=== PATIENT | male | born 1945 | race Caucasian/White ===

== ENCOUNTER → 2017-10-10 | Outpatient (CLI) | payer MEDICARE, BC ==
--- NOTE | 2017-10-10 20:08 | MR ---
EXAMINATION TYPE: MR knee RT wo con DATE OF EXAM: 10/10/2017 COMPARISON: NONE HISTORY: Pain TECHNIQUE: Multiplanar, multisequence imaging of the right knee is performed without IV contrast. FINDINGS: There is grade 3 abnormal signal the posterior horn of the medial meniscus compatible with meniscal tear. Lateral meniscus has a normal appearance. There is narrowing of the joint spaces with hypertrophic changes also seen particularly involving the upper margin of the patella compatible with osteoarthritis. Medial collateral and lateral collateral ligaments have a normal appearance. Anterior cruciate and posterior cruciate ligaments have a normal appearance. Patellar and quadriceps tendons are intact. Tiny amount of fluid in the suprapatellar bursa. There is thinning of the patellar cartilage compatible with chondromalacia. There is multifocal fibrillation involving the articular medial femoral cartilage. No diagnostic evidence of significant marrow edema or contusion. No sizable popliteal fossa cyst. IMPRESSION: 1. Osteoarthritis. 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 2. Posterior horn medial meniscal complex tear.
== END | disposition home or self-care (01) ==
LOC: RADMRIMAIN 19:25
PROVIDERS: ATTEND Orthopaedic Surgery
DX: M17.11 Unilateral primary osteoarthritis, right knee (principal); M22.41 Chondromalacia patellae, right knee; S83.242A Other tear of medial meniscus, current injury, left knee, initial encounter

== ENCOUNTER 2017-12-20 10:51 | Day surgery (SDC) | payer MEDICARE, BC ==
[2017-12-15 09:47] VITALS: BMI 33.4
[2017-12-20] MEDS ORDERED: LACTATED RINGERS 1,000 ML IV ONE ×3 (11:18→12:31)
[2017-12-20 11:19] VITALS: RESP 16; TEMP 98.3
[2017-12-20 12:01] LABS: INR 1.3 (<1.2); Partial Thromboplastin Time 22.5 sec (22.0-30.0)
[2017-12-20] MEDS ORDERED: LIDOCAINE 1% INJ 10MG/ML (20 ML MDV) ONE (12:33)
[2017-12-20] MEDS ORDERED: PROPOFOL 10 MG/ML 20 ML VIAL IV ONE (12:33)
[2017-12-20 13:12] LABS: Anisocytosis Slight; Basophils % (A) 0 %; Eosinophils % (A) 0 %; HCT 31.5 % (39.0-53.0); HGB 10.1 gm/dL (13.0-17.5); Lymphocytes # (A) 1.5 k/uL (1.0-4.8); Lymphocytes % (A) 24 %; MCH 30.5 pg (25.0-35.0); MCV 95.3 fL (80.0-100.0); Mean Platelet Volume 10.4; Monocytes # (A) 0.9 k/uL (0-1.0); Monocytes % (A) 14 %; Neutrophils # (A) 3.7 k/uL (1.3-7.7); Neutrophils % (A) 58 %; RBC 3.31 m/uL (4.30-5.90); RDW 17.7 % (11.5-15.5); WBC 6.5 k/uL (3.8-10.6)
[2017-12-20 13:20] VITALS: BP 126/63; PULSE 62
[2017-12-20 13:24] LABS: Poikilocytosis (M) Present
[2017-12-20 13:25] LABS: Platelet Count 53 k/uL (150-450)
--- NOTE | 2017-12-20 18:03 | OP ---
OPERATIVE REPORT PROCEDURE: Bone marrow aspirate and biopsy. INDICATION: Pancytopenia. After obtaining consent from the patient, the procedure was performed in the endoscopy suite under general anesthesia performed by the anesthesia team. The patient was put on left-sided decubital position. The right posterior superior iliac crest was localized. Skin was cleaned with ChloraPrep. All sterile procedures were followed. Two milliliters of 1% lidocaine was used for local anesthetic. Monoject was inserted; about 15 mL aspirate and a 2 cm core biopsy were obtained without any difficulties. Pressure was applied afterwards. There was negligible blood loss. Patient tolerated the procedure very well without any immediate complications. MMODL / IJN: [id number] /
== END 2017-12-20 13:34 | disposition home or self-care (01) ==
LOC: OR 10:51
PROVIDERS: ATTEND Internal Medicine Hematology & Oncology
DX: I25.10 Atherosclerotic heart disease of native coronary artery without angina pectoris (principal); I10 Essential (primary) hypertension; N40.0 Benign prostatic hyperplasia without lower urinary tract symptoms; I48.91 Unspecified atrial fibrillation; Z95.5 Presence of coronary angioplasty implant and graft; Z87.891 Personal history of nicotine dependence; Z80.51 Family history of malignant neoplasm of kidney; Z80.8 Family history of malignant neoplasm of other organs or systems; Z88.0 Allergy status to penicillin; Z88.2 Allergy status to sulfonamides; Z79.01 Long term (current) use of anticoagulants; Z79.82 Long term (current) use of aspirin; Z79.899 Other long term (current) drug therapy; E78.5 Hyperlipidemia, unspecified; J45.909 Unspecified asthma, uncomplicated
CPT/HCPCS: 85025; 85610; 85730; 38222; J2001; J2704

== ENCOUNTER → 2018-05-31 | Outpatient (CLI) | payer MEDICARE, BC ==
--- NOTE | 2018-05-31 18:45 | CT ---
EXAMINATION TYPE: CT abdomen pelvis wo con DATE OF EXAM: 05/31/2018 COMPARISON: 02/18/2015 HISTORY: RLQ pain CT DLP: 972 mGycm Automated exposure control for dose reduction was used. TECHNIQUE: Helical acquisition of images was performed from the lung bases through the pelvis. FINDINGS: . There is subsegmental atelectasis at the lung bases and more on the right side. Heart size is normal. There is no pericardial effusion. There is no pleural effusion. Liver shows no focal defect. Gallbladder appears normal. Bile ducts are not dilated. Spleen appears n ormal. Stomach appears normal. There is no pancreatic mass. There is no adrenal mass. Kidneys have normal size. There is no hydronep hrosis. There is 4 cm cortical cyst upper pole right kidney. There is no retroperitoneal adenopathy. There are diverticula in the sigmoid colon. There is enlarged prostate with calcification. Urinary bl adder is unremarkable. There is no free fluid in the pelvis. There is no inguinal hernia. There is no mesenteric edema. There is no sign of free air. The lumbar s pine is intact. There is degenerative disc space narrowing in the lumbar spine. I see no bony destruc tive process.There is no evidence of thickened appendix. Appendix is not definitely seen. IMPRESSION: THERE IS MILD SIGMOID DIVERTICULOSIS WITHOUT DIVERTICULITIS. NO SIGN OF APPENDICITIS. NO FREE AIR. SP ONDYLOTIC CHANGES. ENLARGED PROSTATE. There is new atelectasis at the lung bases compared to old exam.
== END | disposition home or self-care (01) ==
LOC: RADCTMAIN 17:09
PROVIDERS: ATTEND Nurse Practitioner Family
DX: K57.30 Diverticulosis of large intestine without perforation or abscess without bleeding (principal); N40.0 Benign prostatic hyperplasia without lower urinary tract symptoms; R10.9 Unspecified abdominal pain
CPT/HCPCS: 74176; 82565; 84520

== ENCOUNTER → 2018-09-05 | Outpatient (CLI) | payer MEDICARE, BC ==
--- NOTE | 2018-09-05 13:19 | CT ---
EXAMINATION TYPE: CT abdomen pelvis w con DATE OF EXAM: 09/05/2018 COMPARISON: CT abdomen pelvis May 31, 2018 HISTORY: Abdominal pain with anemia CT DLP: 2192.0 mGycm, Automated Exposure Control for Dose Reduction was Utilized. CONTRAST: CT scan of the abdomen and pelvis is performed with oral and with IV Contrast, patient injected with 80 mL of Isovue 300. FINDINGS: LUNG BASES: No significant abnormality is appreciated. LIVER/GB: No significant abnormality is appreciated. PANCREAS: No significant abnormality is seen. SPLEEN: Spleen noted normal in size. ADRENALS: No significant abnormality is seen. KIDNEYS: A few simple appearing cysts in the right kidney are present, measuring up to 3.4 cm long ax is medially upper pole right kidney axial image 5 series 11. Symmetric cortical medullary uptake and excretion without hydronephrosis bilaterally. Poorly distended bladder with mild to moderate wall thi ckening, finding presumed related to outlet obstruction from enlarged prostate gland. BOWEL: Prominent diverticula in the left and sigmoid colon without CT evidence for acute diverticulit is. No suspicious small or large bowel dilatation. PROSTATE/SEMINAL VESICLES: Heterogeneous enlarged prostate gland consistent with BPH. Adjacent pelvic phleboliths more numerous on the right side.. LYMPH NODES: No greater than 1cm abdominal or pelvic lymph nodes are appreciated. OSSEOUS STRUCTURES: Moderate to severe disc space narrowing with moderate spurring L4-L5 level. Moder ate multilevel spurring in the thoracolumbar spine. Moderate to severe spurring and joint space loss in both hips. OTHER: No significant additional abnormality is seen. IMPRESSION: Persistent prominent distal colonic diverticulosis without CT evidence for acute divertic ulitis. No hepatosplenomegaly. No suspicious mass or adenopathy. No suspicious fluid collection.
== END | disposition home or self-care (01) ==
LOC: RADCTMAIN 09:34
PROVIDERS: ATTEND Internal Medicine
DX: K57.30 Diverticulosis of large intestine without perforation or abscess without bleeding (principal); R10.9 Unspecified abdominal pain
CPT/HCPCS: 82565; 84520; 74177; 36415; Q9967 ×2

== ENCOUNTER 2018-09-26 05:50 | Day surgery (SDC) | payer MEDICARE, BC ==
[2018-09-21 10:40] VITALS: BMI 32.2
[~2018-09-26 05:50] MED LIST: LACTATED RINGERS 1,000 ML IV SCH; LIDOCAINE 1% 20 ML VIAL (10MG/ML) FOR IV START INTRADERMA PRN
[2018-09-26 06:19] VITALS: TEMP 97.6
[2018-09-26] MEDS ORDERED: PROPOFOL 10 MG/ML 20 ML VIAL IV ONE (07:07)
[2018-09-26] MEDS ORDERED: LIDOCAINE 2% (PF) 20 MG/ML 2 ML VIAL SQ ONE (07:13)
[2018-09-26 07:36] VITALS: RESP 18
[2018-09-26 07:50] VITALS: BP 110/70; PULSE 78
[2018-09-26 08:10] LABS: Anisocytosis Moderate; HCT 25.5 % (39.0-53.0); HGB 8.4 gm/dL (13.0-17.5); Hypochromasia Slight; MCH 30.6 pg (25.0-35.0); MCV 92.9 fL (80.0-100.0); Macrocytosis Slight; Mean Platelet Volume 12.3; RBC 2.75 m/uL (4.30-5.90); RDW 20.6 % (11.5-15.5); WBC 9.6 k/uL (3.8-10.6)
--- NOTE | 2018-09-26 08:13 | OP ---
OPERATIVE REPORT DATE OF SERVICE: September 26, 2018 PROCEDURE: Bone marrow aspirate and biopsy. INDICATION: Myelodysplastic syndrome. PROCEDURE: After obtaining consent from the patient, the procedure was performed in the endoscopy suite under general anesthesia performed by anesthesia team. The patient was put in the left lateral decubitus position. The right posterior iliac crest was localized. Skin was prepped with ChloraPrep. All sterile procedures were followed. A Snarecoil needle was inserted, about 15 mL of aspirate and 1 cm core biopsy was obtained without any difficulties. Pressure applied afterwards. There was negligible blood loss. Patient tolerated procedure very well without any immediate complications. MMODL / IJN: [id number] /
[2018-09-26 09:34] LABS: Lymphocytes # (M) 1.54 k/uL (1.0-4.8); Monocytes # (M) 1.44 k/uL (0-1.0); Neutrophils # (M) 6.62 k/uL (1.3-7.7); Neutrophils % (M) 69 %; Nucleated Red Blood Cells 0 /100 WBC (0-0); Total Cells Counted 100
[2018-09-26 09:35] LABS: Large Platelets Present; Poikilocytosis (M) Present; Polychromasia Present
[2018-09-26 09:36] LABS: Platelet Count 26 k/uL (150-450)
== END 2018-09-26 08:14 | disposition home or self-care (01) ==
LOC: OR 05:50
PROVIDERS: ATTEND Internal Medicine Hematology & Oncology
DX: I25.10 Atherosclerotic heart disease of native coronary artery without angina pectoris (principal); I10 Essential (primary) hypertension; N40.0 Benign prostatic hyperplasia without lower urinary tract symptoms; I48.91 Unspecified atrial fibrillation; E78.5 Hyperlipidemia, unspecified; J45.909 Unspecified asthma, uncomplicated; Z80.51 Family history of malignant neoplasm of kidney; Z80.8 Family history of malignant neoplasm of other organs or systems; Z87.891 Personal history of nicotine dependence; Z95.5 Presence of coronary angioplasty implant and graft; Z79.899 Other long term (current) drug therapy; Z88.0 Allergy status to penicillin; Z88.2 Allergy status to sulfonamides
CPT/HCPCS: 85025; 38222; J2704; J2001

== ENCOUNTER 2018-11-28 10:46 | Day surgery (SDC) | payer MEDICARE, BC ==
[2018-11-27 08:58] VITALS: BMI 31.9
[2018-11-28 11:02] VITALS: TEMP 97.6
[2018-11-28 11:27] LABS: Anisocytosis Slight; Basophils # (A) 0.2 k/uL (0-0.2); Basophils % (A) 2 %; Eosinophils # (A) 0.1 k/uL (0-0.7); Eosinophils % (A) 1 %; HCT 25.8 % (39.0-53.0); HGB 8.3 gm/dL (13.0-17.5); Hypochromasia Slight; Lymphocytes # (A) 1.4 k/uL (1.0-4.8); Lymphocytes % (A) 12 %; MCH 30.8 pg (25.0-35.0); MCHC 32.2 g/dL (31.0-37.0); MCV 95.6 fL (80.0-100.0); Macrocytosis Slight; Mean Platelet Volume 8.1; Monocytes # (A) 1.8 k/uL (0-1.0); Monocytes % (A) 16 %; Neutrophils # (A) 7.8 k/uL (1.3-7.7); Neutrophils % (A) 67 %; RDW 19.8 % (11.5-15.5); WBC 11.7 k/uL (3.8-10.6)
[2018-11-28 11:44] LABS: Platelet Count 13 k/uL (150-450)
[2018-11-28 12:17] LABS: Ovalocytes Present; Poikilocytosis (M) Present; Tear Drop Cells Present
[2018-11-28] MEDS ORDERED: PROPOFOL 10 MG/ML 20 ML VIAL IV ONE (12:32)
[2018-11-28] MEDS ORDERED: LIDOCAINE 1% INJ 10MG/ML (20 ML MDV) ONE (12:32)
[2018-11-28 12:55] LABS: Reticulocyte % 2.5 % (0.5-2.0)
--- NOTE | 2018-11-28 13:05 | PCN ---
PROCEDURE NOTE DATE OF SERVICE: November 28, 2018 PROCEDURE: Bone marrow aspirate and biopsy. INDICATION: Known myelodysplastic syndrome, rule out progression to AML. DESCRIPTION OF PROCEDURE: After obtaining consent from the patient, the procedure was performed in the endoscopy suite under general anesthesia. The patient was put in the left lateral decubitus position. The right posterior superior iliac crest was localized. Skin was cleansed with ChloraPrep, all sterile procedures were followed and 2 mL of 1% Xylocaine was used for local anesthetic. The needle was inserted, about 10 mL aspirate and 1.5 cm core biopsy was obtained without any difficulties. Pressure applied afterwards. There was negligible blood loss. Patient tolerated procedure very well without any immediate complications. MMODL / IJN: [id number] /
[2018-11-28 13:09] VITALS: RESP 18
[2018-11-28 13:26] VITALS: BP 151/85; PULSE 60
== END 2018-11-28 13:44 | disposition home or self-care (01) ==
LOC: OR 10:46
PROVIDERS: ATTEND Internal Medicine Hematology & Oncology
DX: D46.9 Myelodysplastic syndrome, unspecified (principal); Z79.899 Other long term (current) drug therapy; Z88.0 Allergy status to penicillin; Z88.2 Allergy status to sulfonamides; I25.10 Atherosclerotic heart disease of native coronary artery without angina pectoris; I10 Essential (primary) hypertension; I48.91 Unspecified atrial fibrillation; Z95.5 Presence of coronary angioplasty implant and graft; Z87.891 Personal history of nicotine dependence; Z80.51 Family history of malignant neoplasm of kidney
CPT/HCPCS: 85025; 85045; 38222; J2001; J2704

== ENCOUNTER 2019-01-22 13:50 | Inpatient (IN) | payer MEDICARE, BC ==
[2019-01-22] MEDS ORDERED: SODIUM CHLORIDE 0.9% 500 ML 500 ML IV STA (14:42)
[2019-01-22] MEDS ORDERED: PANTOPRAZOLE 40 MG/10 ML VIAL IVP STA (14:42)
--- NOTE | 2019-01-22 14:47 | ED ---
General Adult HPI - General Chief complaint: Shortness of Breath Stated complaint: SOB-CA Pt Time Seen by Provider: 01/22/19 13:55 Source: patient, family, RN notes reviewed Mode of arrival: ambulatory Limitations: no limitations - History of Present Illness Initial comments: This a 73-year-old male who presents emergency Department with a past medical history significant for atrial fibrillation and myelodysplastic syndrome. Patient also has a history of anemia. Patient states over the last few weeks she's become more and more fatigued and short of breath. Patient denies any fever chills. Patient denies any chest pain. Patient denies any abdominal pain patient denies nausea vomiting diarrhea. Patient any black or bloody stools. Patient denies lightheadedness or dizziness. Patient denies any headache. Denies any numbness or weakness that is focal. - Related Data Home Medications Medication Instructions Recorded Confirmed Atorvastatin [Lipitor] 80 mg PO HS 03/28/14 01/22/19 Enalapril [Vasotec] 20 mg PO DAILY 03/28/14 01/22/19 Metoprolol Tartrate [Lopressor] 12.5 mg PO BID 03/28/14 01/22/19 Terazosin [Hytrin] 5 mg PO DAILY 03/28/14 01/22/19 Montelukast [Singulair] 10 mg PO DAILY 12/15/17 01/22/19 Fexofenadine HCl [Lizzy Allergy] 180 mg PO DAILY 09/21/18 01/22/19 Multivitamins, Thera [Multivitamin 1 tab PO DAILY 01/22/19 01/22/19 (formulary)] Allergies Allergy/AdvReac Type Severity Reaction Status Date / Time Penicillins Allergy Rash/Hives Verified 01/22/19 14:41 Sulfa (Sulfonamide Allergy Rash/Hives Verified 01/22/19 14:41 Antibiotics) Review of Systems ROS Statement: Those systems with pertinent positive or pertinent negative responses have been documented in the HPI. ROS Other: All systems not noted in ROS Statement are negative. Past Medical History Past Medical History: Asthma, Hyperlipidemia, Hypertension, Prostate Disorder Additional Past Medical History / Comment(s): CHRONIC LOW PLATELETS-MDS History of Any Multi-Drug Resistant Organisms: None Reported Past Surgical History: Appendectomy, Heart Catheterization With Stent Additional Past Surgical History / Comment(s): pilonidal cyst surg. COLONOSC OPY. BONE MARROW BX-LAST ONE 09/26/18 Past Anesthesia/Blood Transfusion Reactions: No Reported Reaction Date of Last Stent Placement:: September 2012 Past Psychological History: No Psychological Hx Reported Smoking Status: Former smoker Past Alcohol Use History: None Reported Past Drug Use History: None Reported - Past Family History Mother Family Medical History: No Reported History General Exam - General Exam Comments Initial Comments: GENERAL: Patient is well-developed and well-nourished. Patient is nontoxic and well-hydr ated and is in mild distress. ENT: Neck is soft and supple. No significant lymphadenopathy is noted. Oropharynx is clear. Moist mucous membranes. Neck has full range of motion without eliciting any pain. EYES: The sclera were anicteric and conjunctiva were pink and moist. Extraocular movements were intact and pupils were equal round and reactive to light. Eyelids were unremarkable. PULMONARY: Unlabored respirations. Good breath sounds bilaterally. No audible rales rhonchi or wheezing was noted. CARDIOVASCULAR: There is a regular rate and rhythm without any murmurs gallops or rubs. ABDOMEN: Soft and nontender with normal bowel sounds. SKIN: Patient's skin is pale NEUROLOGIC: Patient is alert and oriented x3. Cranial nerves II through XII are grossly intact. Motor and sensory are also intact. Normal speech, volume and content. Symmetrical smile. MUSCULOSKELETAL: Normal extremities with adequate strength and full range of motion. No lower extremity swelling or edema. No calf tenderness. LYMPHATICS: No significant lymphadenopathy is noted PSYCHIATRIC: Normal psychiatric evaluation. Patient is tachycardic at 150 beats a minute Limitations: no limitations Course Vital Signs 01/22/19 01/22/19 13:54 14:39 Temperature 98.1 F Pulse Rate 150 H Pulse Rate [ 150 H Tim[place]er ] Respiratory 16 Rate Blood Pressure 97/65 O2 Sat by Pulse 94 L Oximetry Medical Decision Making - Medical Decision Making EKG shows atrial flutter with a 2-1 block at 150 bpm QRS is 82 QT intervals 294 QTC is 464. Patient's EKG shows no ST segment elevation or depression or T wave abnormalities are noted Chest x-ray shows pleural effusion. Patient is in atrial flutter/started the patient a Cardizem drip. I spoke with Dr. West a agreed to admit the patient to the patient wrote admitting orders and I continued the Cardizem drip on the floor I consult cardiology as well as Dr. Gupta - Lab Data Result diagrams: 01/22/19 14:50 01/22/19 14:50 Lab Results 01/22/19 01/22/19 01/22/19 Range/Units 14:50 14:50 14:50 WBC 6.3 (3.8-10.6) k/uL RBC 2.37 L (4.30-5.90) m/uL Hgb 7.0 L (13.0-17.5) gm/dL Hct 22.6 L (39.0-53.0) % MCV 95.0 (80.0-100.0) fL MCH 29.6 (25.0-35.0) pg MCHC 31.1 (31.0-37.0) g/dL RDW 18.3 H (11.5-15.5) % Plt Count 11 L* (150-450) k/uL Neutrophils % 63 % Lymphocytes % 13 % Monocytes % 16 % Eosinophils % 0 % Basophils % 4 % Neutrophils # 4.0 (1.3-7.7) k/uL Lymphocytes # 0.8 L (1.0-4.8) k/uL Monocytes # 1.0 (0-1.0) k/uL Eosinophils # 0.0 (0-0.7) k/uL Basophils # 0.3 H (0-0.2) k/uL Manual Slide Review Performed Polychromasia Present Hypochromasia Marked Poikilocytosis Slight Poikilocytosis (manual Present Anisocytosis Slight Macrocytosis Slight Ovalocytes Present PT 11.3 (9.0-12.0) sec INR 1.1 (<1.2) APTT 24.6 (22.0-30.0) sec Sodium 143 (137-145) mmol/L Potassium 4.3 (3.5-5.1) mmol/L Chloride 111 H (98-107) mmol/L Carbon Dioxide 24 (22-30) mmol/L Anion Gap 8 mmol/L BUN 24 H (9-20) mg/dL Creatinine 1.36 H (0.66-1.25) mg/dL Est GFR (CKD-EPI)AfAm 58 (>60 ml/min/1.73 sqM) Est GFR (CKD-EPI)NonAf 51 (>60 ml/min/1.73 sqM) Glucose 87 (74-99) mg/dL Calcium 8.9 (8.4-10.2) mg/dL Magnesium 1.9 (1.6-2.3) mg/dL Total Bilirubin 0.9 (0.2-1.3) mg/dL AST 21 (17-59) U/L ALT 20 L (21-72) U/L Alkaline Phosphatase 59 (38-126) U/L Troponin I (0.000-0.034) ng/mL Total Protein 6.9 (6.3-8.2) g/dL Albumin 3.3 L (3.5-5.0) g/dL Blood Type Blood Type Confirm Blood Type Recheck Bld Type Recheck Status Antibody Screen Spec Expiration Date 01/22/19 01/22/19 01/22/19 Range/Units 14:50 14:50 14:52 WBC (3.8-10.6) k/uL RBC (4.30-5.90) m/uL Hgb (13.0-17.5) gm/dL Hct (39.0-53.0) % MCV (80.0-100.0) fL MCH (25.0-35.0) pg MCHC (31.0-37.0) g/dL RDW (11.5-15.5) % Plt Count (150-450) k/uL Neutrophils % % Lymphocytes % % Monocytes % % Eosinophils % % Basophils % % Neutrophils # (1.3-7.7) k/uL Lymphocytes # (1.0-4.8) k/uL Monocytes # (0-1.0) k/uL Eosinophils # (0-0.7) k/uL Basophils # (0-0.2) k/uL Manual Slide Review Polychromasia Hypochromasia Poikilocytosis Poikilocytosis (manual Anisocytosis Macrocytosis Ovalocytes PT (9.0-12.0) sec INR (<1.2) APTT (22.0-30.0) sec Sodium (137-145) mmol/L Potassium (3.5-5.1) mmol/L Chloride (98-107) mmol/L Carbon Dioxide (22-30) mmol/L Anion Gap mmol/L BUN (9-20) mg/dL Creatinine (0.66-1.25) mg/dL Est GFR (CKD-EPI)AfAm (>60 ml/min/1.73 sqM) Est GFR (CKD-EPI)NonAf (>60 ml/min/1.73 sqM) Glucose (74-99) mg/dL Calcium (8.4-10.2) mg/dL Magnesium (1.6-2.3) mg/dL Total Bilirubin (0.2-1.3) mg/dL AST (17-59) U/L ALT (21-72) U/L Alkaline Phosphatase (38-126) U/L Troponin I 0.034 (0.000-0.034) ng/mL Total Protein (6.3-8.2) g/dL Albumin (3.5-5.0) g/dL Blood Type A Positive Blood Type Confirm A Positive Blood Type Recheck No Previous Record Bld Type Recheck Status CABO Indicated Antibody Screen NEGATIVE Spec Expiration Date 01/25/2019 - 2359 Critical Care Time Critical Care Time: Yes Total Critical Care Time: 35 Disposition Clinical Impression: Pleural effusion, Thrombocytopenia, Anemia, Atrial flutter with rapid ventricular response Disposition: ADMITTED IP TO THIS HOSP Referrals: Watson Fuentes MD [Primary Care Provider] - 1-2 days Time of Disposition: 16:01
[2019-01-22 15:04] LABS: Anisocytosis Slight; Basophils # (A) 0.3 k/uL (0-0.2); Basophils % (A) 4 %; Eosinophils % (A) 0 %; HCT 22.6 % (39.0-53.0); Hypochromasia Marked; Lymphocytes # (A) 0.8 k/uL (1.0-4.8); Lymphocytes % (A) 13 %; MCH 29.6 pg (25.0-35.0); MCHC 31.1 g/dL (31.0-37.0); Macrocytosis Slight; Mean Platelet Volume 7.3; Monocytes % (A) 16 %; Neutrophils % (A) 63 %; Poikilocytosis Slight; RBC 2.37 m/uL (4.30-5.90); RDW 18.3 % (11.5-15.5); WBC 6.3 k/uL (3.8-10.6)
[2019-01-22 15:13] LABS: INR 1.1 (<1.2); Partial Thromboplastin Time 24.6 sec (22.0-30.0); Prothrombin Time 11.3 sec (9.0-12.0)
[2019-01-22 15:14] LABS: Albumin 3.3 g/dL (3.5-5.0); Calcium 8.9 mg/dL (8.4-10.2); Magnesium 1.9 mg/dL (1.6-2.3); Potassium 4.3 mmol/L (3.5-5.1); Total Bilirubin 0.9 mg/dL (0.2-1.3); Total Protein 6.9 g/dL (6.3-8.2)
--- NOTE | 2019-01-22 15:14 | XR ---
EXAMINATION TYPE: XR chest 2V DATE OF EXAM: 01/22/2019 COMPARISON: 09/22/2012 INDICATION: Pain and shortness of breath TECHNIQUE: Frontal and lateral views of the chest are obtained. FINDINGS: The heart size is normal. The pulmonary vasculature is normal. Posterior pleural effusions present.. IMPRESSION: 1. Posterior pleural effusions
[2019-01-22 15:39] LABS: Ovalocytes Present; Poikilocytosis (M) Present; Polychromasia Present
[2019-01-22 15:41] LABS: Platelet Count 11 k/uL (150-450)
[2019-01-22] MEDS ORDERED: DILTIAZEM 125 MG in SODIUM CHLORIDE 0.9% 100 ML IV SCH ×2 (16:00→17:39)
[2019-01-22] MEDS ORDERED: NALOXONE 0.4 MG/ML 1 ML VIAL IV PRN (17:26)
[2019-01-22] MEDS ORDERED: ACETAMINOPHEN TAB 325 MG TAB PO PRN (17:26)
[2019-01-22] MEDS ORDERED: HYDROcodone/APAP 5-325MG 1 EACH TAB PO PRN (17:26)
[2019-01-22] MEDS ORDERED: METOPROLOL TARTRATE 25 MG TAB PO STA (17:38)
--- NOTE | 2019-01-22 17:51 | P.HPIM ---
History of Present Illness H&P Date: 01/22/19 Chief Complaint: Fatigue, shortness of breath and dizziness 73-year-old male with MDS, atrial fibrillation, hypertension, asthma, CAD with 2 stents presents the ED for fatigue, shortness of breath and lightheadedness. Patient reports fatigue and shortness of breath has been ongoing for the past month. Patient states that his breathing is worse with exertion. Patient sta alma that one month prior, he was able to walk 20 minutes on a treadmill prior to feeling short of breath but now can only walk 12 minutes. This morning, patient experienced lightheadedness with positional change that prompted him to come to the ED. Patient denies any lower extremity edema, orthopnea or PND. He denies any headache, nausea or vomiting, fever or chills, chest pain, palpitations, c hanges in urination or bowel habits. He does report a cough that is worse at night productive of clear mucus, sometimes blood-tinged, only in the morning. Patient also reports a decreased appetite and weight loss. Patient states that he is gone from 235 pounds to 207 pounds over the last 2-3 years due to his poor appetite. Patient states that he sees Dr. Pace for his atrial fibrillation and CAD. His last echocardiogram was 2 years ago. Patient reports smoking 2-1/2 packs of cigarettes daily for 30 years, quit 35 years ago. Patient reports seeing Dr. Gupta for MDS, has never been transfused. Patient states that he has been on anticoagulation in the past for atrial fibrillation but was taken off due to concerns for bleeding by Dr. Gupta. In the ED, patient was found to be in atrial flutter as seen on EKG, heart rate as high as 151. Chest x-ray showed posterior pleural effusions. CBC showed hemoglobin of 7 and platelet count of 11. Coagulation panel was negative. CMP showed BUN 24, creatinine 1.36. Troponin was 0.034. BNP was 3570. Patient is admitted for atrial flutter, rule out acute coronary syndrome with cardiology and hematology consult. Review of Systems Pertinent positives and negatives as discussed in HPI, a complete review of systems was performed and all other systems are negative. Past Medical History Past Medical History: Asthma, Hyperlipidemia, Hypertension, Prostate Disorder Additional Past Medical History / Comment(s): CHRONIC LOW PLATELETS-MDS History of Any Multi-Drug Resistant Organisms: None Reported Past Surgical History: Appendectomy, Heart Catheterization With Stent Additional Past Surgical History / Comment(s): pilonidal cyst surg. [place] LONOSCOPY. BONE MARROW BX-LAST ONE 09/26/18 Past Anesthesia/Blood Transfusion Reactions: No Reported Reaction Date of Last Stent Placement:: September 2012 Past Psychological History: No Psychological Hx Reported Smoking Status: Former smoker Past Alcohol Use History: None Reported Past Drug Use History: None Reported - Past Family History Mother Family Medical History: No Reported History Medications and Allergies Home Medications Medication Instructions Recorded Confirmed Type Atorvastatin [Lipitor] 80 mg PO HS 03/28/14 01/22/19 History Enalapril [Vasotec] 20 mg PO DAILY 03/28/14 01/22/19 History Metoprolol Tartrate [Lopressor] 12.5 mg PO BID 03/28/14 01/22/19 History Terazosin [Hytrin] 5 mg PO DAILY 03/28/14 01/22/19 History Montelukast [Singulair] 10 mg PO DAILY 12/15/17 01/22/19 History Fexofenadine HCl [Lizzy Allergy] 180 mg PO DAILY 09/21/18 01/22/19 History Multivitamins, Thera [Multivitamin 1 tab PO DAILY 01/22/19 01/22/19 History (formulary)] Allergies Allergy/AdvReac Type Severity Reaction Status Date / Time Penicillins Allergy Rash/Hives Verified 01/22/19 14:41 Sulfa (Sulfonamide Allergy Rash/Hives Verified 01/22/19 14:41 Antibiotics) Physical Exam Vitals: Vital Signs Temp Pulse Pulse Resp BP Pulse Ox 01/22/19 16:30 147 H 18 100/69 98 01/22/19 16:00 147 H 28 H 101/75 98 01/22/19 15:30 13 84/64 98 01/22/19 15:00 149 H 29 H 95/60 98 01/22/19 14:39 150 H 01/22/19 14:30 151 H 16 99/72 96 01/22/19 14:13 149 H 22 93 L 01/22/19 13:54 98.1 F 150 H 16 97/65 94 L Intake and Output 01/22/19 01/22/19 01/22/19 06:59 14:59 22:59 Other: Weight 93.894 kg General: [non toxic], [no distress], [appears at stated age] Derm: [warm], [dry] Head: [atraumatic], [normocephalic], [symmetric] Eyes: [EOMI], [no lid lag], [anicteric sclera] Mouth: [no lip lesion], [mucus membranes moist] Cardiovascular: [S1S2 reg], [irregularly irregular], [positive DP pulse bilateral], Lungs: [CTA bilateral], [no rhonchi, no rales] , [no accessory muscle use] Abdominal: [soft], [ nontender to palpation], [no guarding], [no appreciable organomegaly] Ext: [no gross muscle atrophy], [no edema], [no contractures] Neuro: [ CN II-XI grossly intact], [no focal neuro deficits] Psych: [Alert], [oriented], [appropriate affect] Results CBC & Chem 7: 01/22/19 14:50 01/22/19 14:50 Labs: Abnormal Lab Results - Last 24 Hours (Table) 01/22/19 01/22/19 01/22/19 Range/Units 14:50 14:50 14:50 RBC 2.37 L (4.30-5.90) m/uL Hgb 7.0 L (13.0-17.5) gm/dL Hct 22.6 L (39.0-53.0) % RDW 18.3 H (11.5-15.5) % Plt Count 11 L* (150-450) k/uL Lymphocytes # 0.8 L (1.0-4.8) k/uL Basophils # 0.3 H (0-0.2) k/uL Chloride 111 H (98-107) mmol/L BUN 24 H (9-20) mg/dL Creatinine 1.36 H (0.66-1.25) mg/dL ALT 20 L (21-72) U/L Albumin 3.3 L (3.5-5.0) g/dL Crossmatch See Detail Assessment and Plan Assessment: Atrial flutter with 2-1 AV conduction Symptomatic anemia Thrombocytopenia Acute kidney injury Chronic conditions: Asthma, hypertension, dyslipidemia As seen on EKG. No anticoagulation as per Dr. Hawk and Dr. Hart. Plans: Continue Cardizem drip. Restart metoprolol. Telemetry monitoring. Keep potassium greater than 4 and magnesium greater than 2. Follow echocardiogram. Follow-up cardiology consultation. Follow TSH. Trend troponin/EKG to rule out ACS. Hemoglobin 7.0. Likely due to MDS. Likely contributing to atrial flutter. Plans: Transfuse 1 unit PRBC. Repeat CBC in the morning. Follow-up hematology consultation. Platelet count 11. No signs of bleeding. Hold aspirin and heparin. Plans: Repeat CBC in the morning. Follow hematology consultation. Transfuse if platelet count less than 10. Creatinine 1.36. Plans: Start normal saline at 80 mL per hour. Hold HANNAH inhibitor. Avoid nephrotoxins. Repeat BMP in the morning. DVT prophylaxis: [SCD boots] Discussed with: [Patient] Anticipated discharge: [1-2 days] Anticipated discharge place: [Home] A total of [45] minutes was spent on the care of this complex patient more than 50% of the time was spent in counseling and care coordination. Patient names his Aleah decision-maker in the case that he can't make decisions for himself. Patient reiterates wanting to remain full code at this time. His PCP is Dr. Fuentes. Patient is admitted for anticipated greater than 48 hours.
[2019-01-22] MEDS: SODIUM CHLORIDE 0.9% 1,000 ML IV SCH (19:36)
[2019-01-22] MEDS ORDERED: METOPROLOL TARTRATE 12.5 MG TAB PO SCH (21:00)
[2019-01-22] MEDS: ATORVASTATIN 80 MG TAB PO SCH (21:29)
[2019-01-23 01:19] LABS: Anisocytosis Slight; HCT 22.2 % (39.0-53.0); Hypochromasia Marked; MCH 30.3 pg (25.0-35.0); MCHC 31.4 g/dL (31.0-37.0); MCV 96.7 fL (80.0-100.0); Macrocytosis Slight; Mean Platelet Volume 15.6; Poikilocytosis Slight; RDW 17.5 % (11.5-15.5)
[2019-01-23 01:32] LABS: Platelet Count 14 k/uL (150-450)
[2019-01-23 02:16] LABS: Band Neutrophils % 5 %; Lymphocytes # (M) 1.09 k/uL (1.0-4.8); Metamyelocytes # (M) 0.05 k/uL (0); Metamyelocytes % 1 %; Monocytes # (M) 0.83 k/uL (0-1.0); Neutrophils % (M) 57 %; Nucleated Red Blood Cells 1 /100 WBC (0-0); Ovalocytes Present; Total Cells Counted 200; WBC 5.2 k/uL (3.8-10.6)
[2019-01-23 02:17] LABS: Polychromasia Present; RBC Fragments Present
[2019-01-23 06:16] LABS: African American GFR (CKD) 62 (>60 ml/min/1.73 sqM); Anion Gap 7 mmol/L; Blood Urea Nitrogen 25 mg/dL (9-20); Calcium 8.6 mg/dL (8.4-10.2); Carbon Dioxide 21 mmol/L (22-30); Chloride 115 mmol/L (98-107); Cholesterol <50 mg/dL (<200); Glucose 97 mg/dL (74-99); HDL Cholesterol 10 mg/dL (40-60); LDL Cholesterol,Calculated 21 mg/dL (0-99); Magnesium 1.8 mg/dL (1.6-2.3); Sodium 143 mmol/L (137-145); Triglycerides 96 mg/dL (<150)
[2019-01-23 06:22] LABS: Potassium 4.7 mmol/L (3.5-5.1)
[2019-01-23 08:18] LABS: Anisocytosis Slight; HCT 23.4 % (39.0-53.0); HGB 7.6 gm/dL (13.0-17.5); Hypochromasia Moderate; MCH 30.4 pg (25.0-35.0); MCHC 32.5 g/dL (31.0-37.0); MCV 93.6 fL (80.0-100.0); Mean Platelet Volume 6.9; Poikilocytosis Slight; RDW 17.7 % (11.5-15.5); WBC 7.3 k/uL (3.8-10.6)
[2019-01-23 08:20] LABS: Platelet Count 15 k/uL (150-450)
[2019-01-23 08:30] LABS: Band Neutrophils % 1 %; Lymphocytes # (M) 1.83 k/uL (1.0-4.8); Metamyelocytes # (M) 0.07 k/uL (0); Metamyelocytes % 1 %; Monocytes # (M) 1.39 k/uL (0-1.0); Myelocytes # (M) 0.07 k/uL (0); Myelocytes % 1 %; Neutrophils % (M) 54 %; Nucleated Red Blood Cells 0 /100 WBC (0-0); Ovalocytes Present; Total Cells Counted 200
[2019-01-23] MEDS: SODIUM CHLORIDE 0.9% 1,000 ML IV SCH (08:30)
[2019-01-23 08:31] LABS: RBC Fragments Present
[2019-01-23] MEDS: METOPROLOL TARTRATE 25 MG TAB PO SCH ×2 (08:35→20:13)
[2019-01-23] MEDS: MONTELUKAST 10 MG TAB PO SCH (08:35)
[2019-01-23] MEDS: DOXAZOSIN 4 MG TAB PO SCH (08:36)
[2019-01-23] MEDS ORDERED: DILTIAZEM 125 MG in SODIUM CHLORIDE 0.9% 100 ML IV SCH ×2 (09:00→16:00)
[2019-01-23] MEDS ORDERED: ASPIRIN 325 MG TAB PO SCH (09:00)
[2019-01-23] MEDS ORDERED: METOPROLOL TARTRATE 25 MG TAB PO SCH ×2 (09:00)
[2019-01-23] MEDS ORDERED: METOPROLOL TARTRATE 12.5 MG TAB PO SCH (09:00)
[2019-01-23] MEDS ORDERED: LISINOPRIL 20 MG TAB PO SCH (09:00)
[2019-01-23] MEDS ORDERED: FUROSEMIDE 10 MG/ML 4 ML VIAL IV STA (10:47)
[2019-01-23] MEDS ORDERED: AMIODARONE 200 MG TAB PO SCH (11:00)
--- NOTE | 2019-01-23 11:38 | ECHOF ---
Referral Reason:A Fib MEASUREMENTS -------- HEIGHT: 172.7 cm WEIGHT: 94.3 kg BP: RVIDd: 2.8 cm (< 3.3) IVSd: 1.0 cm (0.6 - 1.1) LVIDd: 4.3 cm (3.9 - 5.3) LVPWd: 1.3 cm (0.6 - 1.1) IVSs: 1.7 cm LVIDs: 2.7 cm LVPWs: 1.5 cm LAESV Index (A-L): 35.30 ml/m Ao Diam: 2.8 cm (2.0 - 3.7) AV Cusp: 1.1 cm (1.5 - 2.6) LA Diam: 3.6 cm (2.7 - 3.8) AV maxP.89 mmHg AV meanP.27 mmHg AR PHT: 131 ms RAP: 15.00 mmHg RVSP: 46.55 mmHg TAPSE: 23.97 mm FINDINGS -------- Atrial fibrillation. This was a technically good study. The left ventricular size is normal. There is mild concentric left ventricular hypertrophy. Overa ll left ventricular systolic function is normal with, an EF between 55 - 60 %. Left ventricular jack limg pressure cannot be estimated due to Atrial fibrillation. The right ventricle is normal in size. The right ventricular systolic function is normal. LA is moderately dilated 34-39 ml/m2 The right atrial size is normal. Interatrial and interventricular septum intact. Aortic valve is trileaflet and is moderately thickened. Trace amount of aortic regurgitation. Th ere is moderate aortic stenosis present. Peak/mean gradient across the Aortic Valve is 31.89mmHg / 17.27mmHg. The mitral valve is normal. The mitral valve leaflets are mildly thickened. Mild mitral annular c alcification present. Mild mitral regurgitation is present. The tricuspid valve appears structurally normal. Mild tricuspid regurgitation present. There is m ild pulmonary hypertension. The right ventricular systolic pressure, as measured by Doppler, is 46. 55mmHg. There is no pulmonic regurgitation present. The aortic root size is normal. The inferior vena cava is mildly dilated but collapses. The pulmonary veins were not recorded. There is no pericardial effusion. CONCLUSIONS -------- 1. Atrial fibrillation. 2. This was a technically good study. 3. The left ventricular size is normal. 4. There is mild concentric left ventricular hypertrophy. 5. Overall left ventricular systolic function is normal with, an EF between 55 - 60 %. 6. Left ventricular fillimg pressure cannot be estimated due to Atrial fibrillation. 7. The right ventricle is normal in size. 8. The right ventricular systolic function is normal. 9. LA is moderately dilated 34-39 ml/m2 10. The right atrial size is normal. 11. Interatrial and interventricular septum intact. 12. Aortic valve is trileaflet and is moderately thickened. 13. Trace amount of aortic regurgitation. 14. There is moderate aortic stenosis present. 15. Peak/mean gradient across the Aortic Valve is 31.89mmHg / 17.27mmHg. 16. The mitral valve is normal. 17. The mitral valve leaflets are mildly thickened. 18. Mild mitral annular calcification present. 19. Mild mitral regurgitation is present. 20. The tricuspid valve appears structurally normal. 21. Mild tricuspid regurgitation present. 22. There is mild pulmonary hypertension. 23. The right ventricular systolic pressure, as measured by Doppler, is 46.55mmHg. 24. There is no pulmonic regurgitation present. 25. The aortic root size is normal. 26. The inferior vena cava is mildly dilated but collapses. 27. The pulmonary veins were not recorded. 28. There is no pericardial effusion. WILDLIFE REMOVAL SPECIALIST: Kalina Holloway RDCS
--- NOTE | 2019-01-23 12:02 | P.PN ---
Subjective Progress Note Date: 01/23/19 Principal diagnosis: Atrial fibrillation Patient was seen and examined. No acute events overnight. Patient reports slight improvement in his fatigue and shortness of breath. Patient denies any chest pain or palpitations. No nausea or vomiting. No fever or chills. Objective - Vital Signs Vital signs: Vital Signs Temp 97.7 F 01/23/19 08:00 Pulse 146 H 01/23/19 08:00 Resp 18 01/23/19 08:00 BP 131/75 01/23/19 08:00 Pulse Ox 95 01/23/19 08:00 Intake & Output 01/22/19 01/23/19 01/23/19 18:59 06:59 18:59 Intake Total 20 850 250.25 Output Total 400 200 Balance 20 450 50.25 Weight 93.894 kg 94.4 kg Intake: IV 20 540 20 Invasive Line 2 20 60 20 Sodium Chloride 0.9% 1, 480 000 ml @ 80 mls/hr IV . [id number] ELISA Rx#:[id number] Intake, IV Titration 110.25 Amount Diltiazem 125 mg In 110.25 Sodium Chloride 0.9% 100 ml @ 7.5 MG/HR 7.5 mls/hr IV .[id number] ELISA Rx#: [id number] Oral 120 Blood Product 310 Rc As-1 Unit 310 [id number] Output: Urine 400 200 Other: Voiding Method Toilet Toilet # Voids 1 - Exam General: [non toxic], [no distress], [appears at stated age] Derm: [warm], [dry] Head: [atraumatic], [normocephalic], [symmetric] Eyes: [EOMI], [no lid lag], [anicteric sclera] Mouth: [no lip lesion], [mucus membranes moist] Cardiovascular: [S1S2 reg], [irregularly irregular], [positive DP pulse bilateral], Lungs: [CTA bilateral], [no rhonchi, no rales] , [no accessory muscle use] Abdominal: [soft], [ nontender to palpation], [no guarding], [no appreciable organomegaly] Ext: [no gross muscle atrophy], [no edema], [no contractures] Neuro: [no focal neuro deficits] Psych: [Alert], [oriented], [appropriate affect] - Labs CBC & Chem 7: 01/23/19 05:48 01/23/19 05:48 Labs: Abnormal Lab Results - Last 24 Hours (Table) 01/22/19 01/22/19 01/22/19 Range/Units 14:50 14:50 14:50 RBC 2.37 L (4.30-5.90) m/uL Hgb 7.0 L (13.0-17.5) gm/dL Hct 22.6 L (39.0-53.0) % RDW 18.3 H (11.5-15.5) % Plt Count 11 L* (150-450) k/uL Lymphocytes # 0.8 L (1.0-4.8) k/uL Monocytes # (Manual) (0-1.0) k/uL Basophils # 0.3 H (0-0.2) k/uL Metamyelocytes # (Man) (0) k/uL Myelocytes # (Manual) (0) k/uL Nucleated RBCs (0-0) /100 WBC Chloride 111 H (98-107) mmol/L Carbon Dioxide (22-30) mmol/L BUN 24 H (9-20) mg/dL Creatinine 1.36 H (0.66-1.25) mg/dL ALT 20 L (21-72) U/L Troponin I (0.000-0.034) ng/mL Albumin 3.3 L (3.5-5.0) g/dL HDL Cholesterol (40-60) mg/dL Crossmatch See Detail 01/22/19 01/23/19 01/23/19 Range/Units 21:08 00:36 03:10 RBC 2.30 L (4.30-5.90) m/uL Hgb 7.0 L (13.0-17.5) gm/dL Hct 22.2 L (39.0-53.0) % RDW 17.5 H (11.5-15.5) % Plt Count 14 L* (150-450) k/uL Lymphocytes # (1.0-4.8) k/uL Monocytes # (Manual) (0-1.0) k/uL Basophils # (0-0.2) k/uL Metamyelocytes # (Man) 0.05 H (0) k/uL Myelocytes # (Manual) (0) k/uL Nucleated RBCs 1 H (0-0) /100 WBC Chloride (98-107) mmol/L Carbon Dioxide (22-30) mmol/L BUN (9-20) mg/dL Creatinine (0.66-1.25) mg/dL ALT (21-72) U/L Troponin I 0.036 H* 0.044 H* (0.000-0.034) ng/mL Albumin (3.5-5.0) g/dL HDL Cholesterol (40-60) mg/dL Crossmatch 01/23/19 01/23/19 Range/Units 05:48 05:48 RBC 2.50 L (4.30-5.90) m/uL Hgb 7.6 L (13.0-17.5) gm/dL Hct 23.4 L (39.0-53.0) % RDW 17.7 H (11.5-15.5) % Plt Count 15 L* (150-450) k/uL Lymphocytes # (1.0-4.8) k/uL Monocytes # (Manual) 1.39 H (0-1.0) k/uL Basophils # (0-0.2) k/uL Metamyelocytes # (Man) 0.07 H (0) k/uL Myelocytes # (Manual) 0.07 H (0) k/uL Nucleated RBCs (0-0) /100 WBC Chloride 115 H (98-107) mmol/L Carbon Dioxide 21 L (22-30) mmol/L BUN 25 H (9-20) mg/dL Creatinine 1.29 H (0.66-1.25) mg/dL ALT (21-72) U/L Troponin I (0.000-0.034) ng/mL Albumin (3.5-5.0) g/dL HDL Cholesterol 10 L (40-60) mg/dL Crossmatch Assessment and Plan Assessment: Atrial flutter with 2-1 AV conduction Troponin elevation Symptomatic anemia Thrombocytopenia Acute kidney injury Chronic conditions: Asthma, hypertension, dyslipidemia As seen on EKG. No anticoagulation as per Dr. Hawk and Dr. Hart. Echocardiogram shows EF 55-60% with mild concentric LVH. TSH within normal limits. Plans: Continue Cardizem drip. Started on amiodarone this morning. Increase metoprolol from 12.5-25 mg by mouth twice a day. Telemetry monitoring. Keep potassium greater than 4 and magnesium greater than 2. Follow-up cardiology consultation. Troponin 0.034, 0.036, 0.044 with EKG showing atrial flutter with 2-1 AV conduction. Likely due to demand ischemia. Plans: ACS ruled out. Follow cardiac recommendations. Hemoglobin 7.0-7.6. Likely due to MDS. Likely contributing to atrial flutter. Plans: Repeat CBC in the morning. Follow-up hematology consultation. Platelet count 15. No signs of bleeding. Hold aspirin and heparin. Plans: Repeat CBC in the morning. Follow hematology consultation. Transfuse if platelet count less than 10. Creat 1.29 Plans: DC IVF and encourage hydration by mouth. Hold HANNAH inhibitor. Avoid nephrotoxins. Repeat BMP in the morning. [Patient being treated for atrial flutter. Heart rate still uncontrolled. Started on amiodarone and metoprolol increased. Cardiology on board. Echocardiogram pending. Likely DC in 2-3 days. ]
--- NOTE | 2019-01-23 12:26 | P.CRDCN ---
History of Present Illness Consult date: 01/23/19 Requesting physician: Emanuel Garsia Reason for Consult (text): atrial flutter Consult reason: shortness of breath Chief complaint: shortness of breath History of present illness: this is a 73-year-old gentleman who follows regularly with Dr. Pace in the office. He has a known history of coronary artery disease with prior PCI, history also of hypertension, hyperlipidemia, chronic persistent atrial fibrillation, patient also had a recent diagnosis of myelodysplastic syndrome, he had been on Coumadin which was discontinued because of severe thromboc ytopenia. His last echo performed in October 2017 revealed a normal left ventricular systolic function. His last Fiona scan was performed in October 2017 which did not show any evidence of reversible ischemia at that time. He presented to the hospital on this occasion with symptoms of severe shortness of breath, mostly exertional in nature which has been going off and on, persistently worsening over the past few weeks. Patient also states that he is heart racing fast and irregular. Lightheadedness as well. EKG on presentation here showed atrial flutter with rapid ventricular response. Chest x-ray showed posterior pleural effusions. He had been initiated on IV Cardizem drip in the emergency room as well as his home dose of beta uri, he continues this morning to be in atrial flutter with a heart rate of 130 to 140. Blood pressure 130/70 with a heart rate 1:30 to 140, 95% on 2 L of oxygen.White blood cell count 7.3, hemoglobin 7.6, platelet count 15 this morning. Sodium 143, potassium 4.7, BUN 25 and creatinine 1.2. Magnesium 1.8. troponin 0.034, 0.036, 0.044. BNP level 3570.TSH level normal at 2.4.at the time of my examination this morning, patient continues to feel awful, in his words, continues to feel short of breath and very weak. We will start the patient on amiodarone 400 mg one tablet daily this morning for more optimal heart rate control. We will also give the patient a dose of IV Lasix and then start him on some oral Lasix. Past Medical History Past Medical History: Atrial Fibrillation, Atrial Flutter, Blood Disorder, Coronary Artery Disease (CAD), Cancer, GERD/Reflux, Hyperlipidemia, Hypertension, Osteoarthritis (OA) Additional Past Medical History / Comment(s): CHRONIC LOW PLATELETS-MDS History of Any Multi-Drug Resistant Organisms: None Reported Past Surgical History: Appendectomy, Heart Catheterization With Stent Additional Past Surgical History / Comment(s): pilonidal cyst surg. COLONOSCOPY. BONE MARROW BX-12/28. stents x 2 2012 Past Anesthesia/Blood Transfusion Reactions: No Reported Reaction Date of Last Stent Placement:: September 2012 Past Psychological History: No Psychological Hx Reported Smoking Status: Former smoker Past Alcohol Use History: None Reported Additional Past Alcohol Use History / Comment(s): QUIT SMOKING 40 YEARS AGO Past Drug Use History: None Reported - Past Family History Mother Family Medical History: No Reported History Additional Family Medical History / Comment(s): at age 97 Father Family Medical History: Cancer Additional Family Medical History / Comment(s): kidney cancer-drowned at age 77 Medications and Allergies Home Medications Medication Instructions Recorded Confirmed Type Atorvastatin [Lipitor] 80 mg PO HS 03/28/14 01/22/19 History Enalapril [Vasotec] 20 mg PO DAILY 03/28/14 01/22/19 History Metoprolol Tartrate [Lopressor] 12.5 mg PO BID 03/28/14 01/22/19 History Terazosin [Hytrin] 5 mg PO DAILY 03/28/14 01/22/19 History Montelukast [Singulair] 10 mg PO DAILY 12/15/17 01/22/19 History Fexofenadine HCl [Lizzy Allergy] 180 mg PO DAILY 09/21/18 01/22/19 History Multivitamins, Thera [Multivitamin 1 tab PO DAILY 01/22/19 01/22/19 History (formulary)] Allergies Allergy/AdvReac Type Severity Reaction Status Date / Time Penicillins Allergy Rash/Hives Verified 01/22/19 14:41 Sulfa (Sulfonamide Allergy Rash/Hives Verified 01/22/19 14:41 Antibiotics) Physical Exam Vitals: Vital Signs Temp Pulse Pulse Resp BP BP Pulse Ox 01/23/19 08:00 97.7 F 146 H 18 131/75 95 01/23/19 04:00 98.6 F 131 H 18 102/55 95 01/23/19 00:05 98.3 F 128 H 16 91/54 01/23/19 00:00 98.3 F 128 H 18 91/54 98 01/22/19 22:30 98.3 F 128 H 16 91/54 01/22/19 20:00 122 H 16 01/22/19 19:52 98.4 F 122 H 18 105/62 01/22/19 19:37 126 H 18 99/58 95 01/22/19 19:22 99.1 F 126 H 20 99/58 92 L 01/22/19 19:12 98.8 F 151 H 16 90/58 95 01/22/19 17:25 154 H 20 01/22/19 17:05 98.2 F 154 H 20 100/60 94 L 01/22/19 16:30 147 H 18 100/69 98 01/22/19 16:00 147 H 28 H 101/75 98 01/22/19 15:30 13 84/64 98 01/22/19 15:00 149 H 29 H 95/60 98 01/22/19 14:39 150 H 01/22/19 14:30 151 H 16 99/72 96 01/22/19 14:13 149 H 22 93 L 01/22/19 13:54 98.1 F 150 H 16 97/65 94 L Intake and Output 01/22/19 01/23/19 01/23/19 22:59 06:59 14:59 Intake Total 40 830 250.25 Output Total 400 200 Balance 40 430 50.25 Intake: IV 40 520 20 Invasive Line 2 40 40 20 Sodium Chloride 0.9% 1, 480 000 ml @ 80 mls/hr IV . [id number] ELISA Rx#:[id number] Intake, IV Titration 110.25 Amount Diltiazem 125 mg In 110.25 Sodium Chloride 0.9% 100 ml @ 7.5 MG/HR 7.5 mls/hr IV .[id number] ELISA Rx#: [id number] Oral 120 Blood Product 0 310 Rc As-1 Unit 0 310 [id number] Output: Urine 400 200 Other: Voiding Method Toilet Toilet # Voids 1 Weight 94.4 kg PHYSICAL EXAMINATION: GENERAL:73-year-old gentleman in no acute distress at the time of my examination HEENT: Head is atraumatic, normocephalic. Pupils equal, round. Sclera anicteric. Conjunctiva are clear. Mucous membranes of the mouth are moist. Neck is supple. There is no elevated jugular venous pressure.no carotid bruit is heard. HEART EXAMINATION: [Heart S1, S2 irregularly irregular a systolic ejection murmur is heard CHEST EXAMINATION lungs are clear with diminished air entry to bilateral bases ABDOMEN: [ Soft, nontender. Bowel sounds are heard. No organomegaly noted]. EXTREMITIES:[ 2+ peripheral pulses with no evidence of peripheral edema and no calf tenderness notedPatient does have significant a brownish discoloration to both of his hands from his thrombocytopenia. NEUROLOGIC [patient is awake, alert and oriented X3.] . Results 01/23/19 05:48 01/23/19 05:48 Cardiac Enzymes 01/22/19 01/22/19 01/22/19 Range/Units 14:50 14:50 21:08 AST 21 (17-59) U/L Troponin I 0.034 0.036 H* (0.000-0.034) ng/mL 01/23/19 Range/Units 03:10 AST (17-59) U/L Troponin I 0.044 H* (0.000-0.034) ng/mL Coagulation 01/22/19 Range/Units 14:50 PT 11.3 (9.0-12.0) sec APTT 24.6 (22.0-30.0) sec Lipids 01/23/19 Range/Units 05:48 Triglycerides 96 (<150) mg/dL Cholesterol <50 (<200) mg/dL HDL Cholesterol 10 L (40-60) mg/dL CBC 01/22/19 01/23/19 01/23/19 Range/Units 14:50 00:36 05:48 WBC 6.3 5.2 7.3 (3.8-10.6) k/uL RBC 2.37 L 2.30 L 2.50 L (4.30-5.90) m/uL Hgb 7.0 L 7.0 L 7.6 L (13.0-17.5) gm/dL Hct 22.6 L 22.2 L 23.4 L (39.0-53.0) % Plt Count 11 L* 14 L* 15 L* (150-450) k/uL Comprehensive Metabolic Panel 01/22/19 01/23/19 Range/Units 14:50 05:48 Sodium 143 143 (137-145) mmol/L Potassium 4.3 4.7 (3.5-5.1) mmol/L Chloride 111 H 115 H (98-107) mmol/L Carbon Dioxide 24 21 L (22-30) mmol/L BUN 24 H 25 H (9-20) mg/dL Creatinine 1.36 H 1.29 H (0.66-1.25) mg/dL Glucose 87 97 (74-99) mg/dL Calcium 8.9 8.6 (8.4-10.2) mg/dL AST 21 (17-59) U/L ALT 20 L (21-72) U/L Alkaline Phosphatase 59 (38-126) U/L Total Protein 6.9 (6.3-8.2) g/dL Albumin 3.3 L (3.5-5.0) g/dL Current Medications Generic Name Dose Route Start Last Admin Trade Name Freq PRN Reason Stop Dose Admin Acetaminophen 650 mg 01/22/19 17:26 Tylenol Tab PO Q6HR PRN Mild Pain or Fever > 100.5 Hydrocodone Bitart/Acetaminophen 1 each 01/22/19 17:26 Yancey 5-325 PO Q4HR PRN Moderate Pain Amiodarone HCl 400 mg 01/23/19 11:00 01/23/19 11:48 Cordarone PO 400 mg DAILY ELISA Administration Atorvastatin Calcium 80 mg 01/22/19 21:00 01/22/19 21:29 Lipitor PO 80 mg HS ELISA Administration Doxazosin Mesylate 4 mg 01/23/19 09:00 01/23/19 08:36 Cardura PO 4 mg DAILY ELISA Administration Furosemide 40 mg 01/23/19 16:00 Lasix PO BID@0900,1600 ELISA Diltiazem HCl 125 mg/ Sodium 125 mls @ 10 mls/hr 01/23/19 09:00 01/23/19 08:29 Chloride IV 10 mg/hr .[id number] ELISA 10 mls/hr Administration 10 MG/HR Metoprolol Tartrate 25 mg 01/23/19 09:00 01/23/19 08:35 Lopressor PO 25 mg BID ELISA Administration Montelukast Sodium 10 mg 01/23/19 09:00 01/23/19 08:35 Singulair PO 10 mg DAILY ELISA Administration Naloxone HCl 0.2 mg 01/22/19 17:26 Narcan IV Q2M PRN Opioid Reversal Nitroglycerin 0.4 mg 01/22/19 16:03 Nitrostat SUBLINGUAL Q5M PRN Chest Pain Intake and Output 01/22/19 01/23/19 01/23/19 22:59 06:59 14:59 Intake Total 40 830 250.25 Output Total 400 200 Balance 40 430 50.25 Intake: IV 40 520 20 Invasive Line 2 40 40 20 Sodium Chloride 0.9% 1, 480 000 ml @ 80 mls/hr IV . [id number] ELISA Rx#:[id number] Intake, IV Titration 110.25 Amount Diltiazem 125 mg In 110.25 Sodium Chloride 0.9% 100 ml @ 7.5 MG/HR 7.5 mls/hr IV .[id number] ELISA Rx#: [id number] Oral 120 Blood Product 0 310 Rc As-1 Unit 0 310 [id number] Output: Urine 400 200 Other: Voiding Method Toilet Toilet # Voids 1 Weight 94.4 kg 01/23/19 05:48 01/23/19 05:48 EKG Interpretations (text) EKG shows atrial flutter with rapid ventricular response Assessment and Plan Plan: assessment and plan #1 atrial flutter, typical, with rapid ventricular response #2 chronic persistent atrial fibrillation #3 coronary artery disease with prior stentingof the right coronary artery in 2012 #4 hypertension #5 hyperlipidemia #6 nicotine dependence #7 myelodysplastic syndrome, with associated low platelet count which is why the patient is not on anticoagulation Plan We will start the patient on amiodarone 400 mg by mouth daily, for one month, give the patient one time dose of IV Lasix now and then start him on oral. Obtain echocardiogram with Doppler study ,further recommendations to follow. DNP note has been reviewed, I agree with a documented findings and plan of care. Patient was seen and examined.
--- NOTE | 2019-01-23 15:12 | P.CONS ---
History of Present Illness - Reason for Consult Consult date: 01/23/19 bicytopenia, MDS Requesting physician: Jun Mena - Chief Complaint SOB - History of Present Illness Mr. Bundy is a very pleasant pt of Dr. Hawk who was referred because of persistent thrombocytopenia found during routine blood work. 04/07/2015 CBC revealed total platelets counts of 99K, Hgb 12.4gm/dl, WBC 5.94. 05/06/15 SPEP and immunofixation were negative for monoclonal protein, hepatitis C antibodies and hepatitis B were negative, no anticardiolipin antibodies. 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 He decided for supportive care only. Repeat bone marrow biopsy on 11/28/18 revealed hypercellular marrow, no progression to AML. He follows with Dr Hawk monthly, last seen on 01/15/19, Hgb 7.4, WBC 8.4, platelets 11,0000-progressively lower numbers over the last year. Came to ER with c/o progressive SOB and fatigue, has felt more tired, exertional dyspnea, able to do ADLs and IADLs, appetite fair, no fever or night sweats, chest pain, multiple bruisies on both hands no other s/s bleeding, GI c/o, black or bloody stools, syncopy, headache, unilateral deficit. Has history of A-fib, elevated troponin, Cardiology following. Review of Systems 14 point review of systems is negative except as stated in HPI Past Medical History Past Medical History: Atrial Fibrillation, Atrial Flutter, Blood Disorder, Coronary Artery Disease (CAD), Cancer, GERD/Reflux, Hyperlipidemia, Hypertension, Osteoarthritis (OA) Additional Past Medical History / Comment(s): CHRONIC LOW PLATELETS-MDS History of Any Multi-Drug Resistant Organisms: None Reported Past Surgical History: Appendectomy, Heart Catheterization With Stent Additional Past Surgical History / Comment(s): pilonidal cyst surg. COLONOSCOPY . BONE MARROW BX-12/28. stents x 2 2012 Past Anesthesia/Blood Transfusion Reactions: No Reported Reaction Date of Last Stent Placement:: September 2012 Past Psychological History: No Psychological Hx Reported Smoking Status: Former smoker Past Alcohol Use History: None Reported Additional Past Alcohol Use History / Comment(s): QUIT SMOKING 40 YEARS AGO Past Drug Use History: None Reported - Past Family History Mother Family Medical History: No Reported History Additional Family Medical History / Comment(s): at age 97 Father Family Medical History: Cancer Additional Family Medical History / Comment(s): kidney cancer-drowned at age 77 Medications and Allergies Home Medications Medication Instructions Recorded Confirmed Type Atorvastatin [Lipitor] 80 mg PO HS 03/28/14 01/22/19 History Enalapril [Vasotec] 20 mg PO DAILY 03/28/14 01/22/19 History Metoprolol Tartrate [Lopressor] 12.5 mg PO BID 03/28/14 01/22/19 History Terazosin [Hytrin] 5 mg PO DAILY 03/28/14 01/22/19 History Montelukast [Singulair] 10 mg PO DAILY 12/15/17 01/22/19 History Fexofenadine HCl [Lizzy Allergy] 180 mg PO DAILY 09/21/18 01/22/19 History Multivitamins, Thera [Multivitamin 1 tab PO DAILY 01/22/19 01/22/19 History (formulary)] Allergies Allergy/AdvReac Type Severity Reaction Status Date / Time Penicillins Allergy Rash/Hives Verified 01/22/19 14:41 Sulfa (Sulfonamide Allergy Rash/Hives Verified 01/22/19 14:41 Antibiotics) Physical Exam Vitals: Vital Signs Temp Pulse Pulse Resp BP BP Pulse Ox 01/23/19 12:00 98.8 F 128 H 18 103/65 93 L 01/23/19 08:00 97.7 F 146 H 18 131/75 95 01/23/19 04:00 98.6 F 131 H 18 102/55 95 01/23/19 00:05 98.3 F 128 H 16 91/54 01/23/19 00:00 98.3 F 128 H 18 91/54 98 01/22/19 22:30 98.3 F 128 H 16 91/54 01/22/19 20:00 122 H 16 01/22/19 19:52 98.4 F 122 H 18 105/62 01/22/19 19:37 126 H 18 99/58 95 01/22/19 19:22 99.1 F 126 H 20 99/58 92 L 01/22/19 19:12 98.8 F 151 H 16 90/58 95 01/22/19 17:25 154 H 20 01/22/19 17:05 98.2 F 154 H 20 100/60 94 L 01/22/19 16:30 147 H 18 100/69 98 01/22/19 16:00 147 H 28 H 101/75 98 01/22/19 15:30 13 84/64 98 01/22/19 15:00 149 H 29 H 95/60 98 Intake and Output 01/22/19 01/23/19 01/23/19 22:59 06:59 14:59 Intake Total 40 830 470.25 Output Total 400 200 Balance 40 430 270.25 Intake: IV 40 520 40 Invasive Line 2 40 40 40 Sodium Chloride 0.9% 1, 480 000 ml @ 80 mls/hr IV . [id number] ELISA Rx#:[id number] Intake, IV Titration 110.25 Amount Diltiazem 125 mg In 110.25 Sodium Chloride 0.9% 100 ml @ 7.5 MG/HR 7.5 mls/hr IV .[id number] ELISA Rx#: [id number] Oral 320 Blood Product 0 310 Rc As-1 Unit 0 310 [id number] Output: Urine 400 200 Other: Voiding Method Toilet Toilet # Voids 1 Weight 94.4 kg 94.4 kg - Constitutional General appearance: average body habitus, cooperative, no acute distress - EENT Eyes: anicteric sclerae, EOMI ENT: hearing grossly normal, normal oropharynx - Neck Neck: no lymphadenopathy - Respiratory Respiratory: bilateral: CTA - Cardiovascular Rhythm: regular Heart sounds: normal: S1, S2 Abnormal Heart Sounds: no systolic murmur, no diastolic murmur, no rub, no S3 Gallop, no S4 Gallop, no click, no other leg Peripheral Edema: bilateral: None - Gastrointestinal General gastrointestinal: no absent bowel sounds, no decreased bowel sounds, no distended, no hepatomegaly, no hyperactive bowel sounds, normal bowel sounds, no organomegaly, no rigid, no scaphoid, soft, no splenomegaly, no tenderness, no umbilical hernia, no ventral hernia - Integumentary Multiple hyperkeratotic lesions on patient's back, signs of sun damage and skin tags - Neurologic Neurologic: CNII-XII intact - Musculoskeletal Musculoskeletal: strength equal bilaterally - Psychiatric Psychiatric: A&O x's 3, appropriate affect, intact judgment & insight Results CBC & Chem 7: 01/23/19 05:48 01/23/19 05:48 Labs: Abnormal Lab Results - Last 24 Hours (Table) 01/22/19 01/22/19 01/22/19 Range/Units 14:50 14:50 14:50 RBC 2.37 L (4.30-5.90) m/uL Hgb 7.0 L (13.0-17.5) gm/dL Hct 22.6 L (39.0-53.0) % RDW 18.3 H (11.5-15.5) % Plt Count 11 L* (150-450) k/uL Lymphocytes # 0.8 L (1.0-4.8) k/uL Monocytes # (Manual) (0-1.0) k/uL Basophils # 0.3 H (0-0.2) k/uL Metamyelocytes # (Man) (0) k/uL Myelocytes # (Manual) (0) k/uL Nucleated RBCs (0-0) /100 WBC Chloride 111 H (98-107) mmol/L Carbon Dioxide (22-30) mmol/L BUN 24 H (9-20) mg/dL Creatinine 1.36 H (0.66-1.25) mg/dL ALT 20 L (21-72) U/L Troponin I (0.000-0.034) ng/mL Albumin 3.3 L (3.5-5.0) g/dL HDL Cholesterol (40-60) mg/dL Crossmatch See Detail 01/22/19 01/23/19 01/23/19 Range/Units 21:08 00:36 03:10 RBC 2.30 L (4.30-5.90) m/uL Hgb 7.0 L (13.0-17.5) gm/dL Hct 22.2 L (39.0-53.0) % RDW 17.5 H (11.5-15.5) % Plt Count 14 L* (150-450) k/uL Lymphocytes # (1.0-4.8) k/uL Monocytes # (Manual) (0-1.0) k/uL Basophils # (0-0.2) k/uL Metamyelocytes # (Man) 0.05 H (0) k/uL Myelocytes # (Manual) (0) k/uL Nucleated RBCs 1 H (0-0) /100 WBC Chloride (98-107) mmol/L Carbon Dioxide (22-30) mmol/L BUN (9-20) mg/dL Creatinine (0.66-1.25) mg/dL ALT (21-72) U/L Troponin I 0.036 H* 0.044 H* (0.000-0.034) ng/mL Albumin (3.5-5.0) g/dL HDL Cholesterol (40-60) mg/dL Crossmatch 01/23/19 01/23/19 Range/Units 05:48 05:48 RBC 2.50 L (4.30-5.90) m/uL Hgb 7.6 L (13.0-17.5) gm/dL Hct 23.4 L (39.0-53.0) % RDW 17.7 H (11.5-15.5) % Plt Count 15 L* (150-450) k/uL Lymphocytes # (1.0-4.8) k/uL Monocytes # (Manual) 1.39 H (0-1.0) k/uL Basophils # (0-0.2) k/uL Metamyelocytes # (Man) 0.07 H (0) k/uL Myelocytes # (Manual) 0.07 H (0) k/uL Nucleated RBCs (0-0) /100 WBC Chloride 115 H (98-107) mmol/L Carbon Dioxide 21 L (22-30) mmol/L BUN 25 H (9-20) mg/dL Creatinine 1.29 H (0.66-1.25) mg/dL ALT (21-72) U/L Troponin I (0.000-0.034) ng/mL Albumin (3.5-5.0) g/dL HDL Cholesterol 10 L (40-60) mg/dL Crossmatch Comments: echo report reviewed Chest x-ray: report reviewed Assessment and Plan (1) Thrombocytopenia Current Visit: Yes Status: Chronic Priority: Medium Code(s): D69.6 - THROMBOCYTOPENIA, UNSPECIFIED SNOMED Code(s): 096354080 (2) Anemia Current Visit: Yes Status: Chronic Priority: Medium Code(s): D64.9 - ANEMIA, UNSPECIFIED SNOMED Code(s): 784205092 (3) MDS (myelodysplastic syndrome) Narrative/Plan: Patient has been on watchful waiting monitoring for MDS. Patient has had 3 bone marrow biopsies the most recent in November. Same findings as previous, no transformation. Patient's counts overall are stable the last several months, there is been a slow decline over the last 1 year. No plans to acutely treat Current Visit: Yes Status: Acute Priority: High Code(s): D46.9 - MYELODYSPLASTIC SYNDROME, UNSPECIFIED SNOMED Code(s): 151094753 Plan: Due to patient being symptomatic and suspect myocardial ischemia, transfuse for patient comfort and symptoms to keep Hgb >7. If patient requires cardiac intervention recommendation would be for administration of platelets during procedure, close monitoring for bleeding post procedures. Patient's myelodysplastic syndrome does not prevent him from having cardiac procedures, just needs to be close monitoring of blood with transfusions as necessary.
[2019-01-23] MEDS: FUROSEMIDE 40 MG TAB PO SCH (15:18)
[2019-01-23] MEDS: DILTIAZEM 125 MG in SODIUM CHLORIDE 0.9% 100 ML IV SCH (17:00)
[2019-01-23] MEDS ORDERED: AMIODARONE 360 MG in DEXTROSE 5% IN WATER 200 ML IV ONE ×2 (18:26)
[2019-01-23] MEDS: ATORVASTATIN 80 MG TAB PO SCH (20:13)
[2019-01-24] MEDS: FUROSEMIDE 40 MG TAB PO SCH ×2 (09:16→16:07)
[2019-01-24] MEDS: DOXAZOSIN 4 MG TAB PO SCH (09:16)
[2019-01-24] MEDS: METOPROLOL TARTRATE 25 MG TAB PO SCH (09:16)
[2019-01-24] MEDS: MONTELUKAST 10 MG TAB PO SCH (09:16)
[2019-01-24] MEDS: AMIODARONE 300 MG in DEXTROSE 5% IN WATER 250 ML IV SCH ×4 (10:40→17:33)
[2019-01-24] MEDS: DILTIAZEM 125 MG in SODIUM CHLORIDE 0.9% 100 ML IV SCH (10:41)
--- NOTE | 2019-01-24 11:19 | P.PN ---
Subjective Progress Note Date: 01/24/19 Principal diagnosis: NV, MDS on observation In follow-up today patient states he feels better than yesterday, less respiratory distress, chest discomfort. He states he had a good night's sleep. He denies any bleeding. Objective - Vital Signs Vital signs: Vital Signs Temp 98.9 F 01/23/19 20:02 Pulse 103 H 01/24/19 04:00 Resp 18 01/24/19 04:00 BP 109/63 01/24/19 04:00 Pulse Ox 93 L 01/24/19 04:00 Intake & Output 01/23/19 01/24/19 01/24/19 18:59 06:59 18:59 Intake Total 1517.75 240 Output Total 2000 875 Balance -482.25 -875 240 Weight 94.4 kg 93.9 kg Intake: IV 220 Invasive Line 2 60 Sodium Chloride 0.9% 1, 160 000 ml @ 80 mls/hr IV . [id number] ELISA Rx#:[id number] Intake, IV Titration 177.75 Amount Diltiazem 125 mg In 67.5 Sodium Chloride 0.9% 100 ml @ 10 MG/HR 10 mls/hr IV .[id number] ELISA Rx#: [id number] Diltiazem 125 mg In 110.25 Sodium Chloride 0.9% 100 ml @ 7.5 MG/HR 7.5 mls/hr IV .[id number] ELISA Rx#: [id number] Oral 1120 240 Output: Urine 1999 875 Other: Voiding Method Toilet Toilet Urinal # Voids 1 1 200 # Bowel Movements 0 0 - Constitutional General appearance: Present: average body habitus, cooperative, no acute distress - EENT Eyes: Present: anicteric sclerae, EOMI ENT: Present: hearing grossly normal - Respiratory Respiratory: bilateral: CTA - Cardiovascular Heart sounds: normal: S1, S2 - Peripheral edema leg Peripheral Edema: bilateral: None - Gastrointestinal General gastrointestinal: Present: normal bowel sounds, soft - Neurologic Neurologic: Present: CNII-XII intact - Musculoskeletal Musculoskeletal: Present: strength equal bilaterally - Psychiatric Psychiatric: Present: A&O x's 3, appropriate affect, intact judgment & insight - Labs CBC & Chem 7: 01/23/19 05:48 01/23/19 05:48 Assessment and Plan (1) Thrombocytopenia Current Visit: Yes Status: Chronic Priority: Medium Code(s): D69.6 - THRO MBOCYTOPENIA, UNSPECIFIED SNOMED Code(s): 057403249 (2) Anemia Current Visit: Yes Status: Chronic Priority: Medium Code(s): D64.9 - ANEMIA, UNSPECIFIED SNOMED Code(s): 725819663 (3) MDS (myelodysplastic syndrome) Narrative/Plan: Patient has been on watchful waiting monitoring for MDS. Patient has had 3 bone marrow biopsies the most recent in November. Same findings as previous, no transformation. Patient's counts overall are stable the last several months, there is been a slow decline over the last 1 year. No plans to acutely treat Current Visit: Yes Status: Acute Priority: High Code(s): D46.9 - MYELODYSPLASTIC SYNDROME, UNSPECIFIED SNOMED Code(s): 242143796 Plan: Due to patient being symptomatic and suspect myocardial ischemia, transfuse for patient comfort and symptoms to keep Hgb >7. If patient requires cardiac intervention (ie PCTA) recommendation would be for administration of platelets during procedure, close monitoring for bleeding post procedures. Cardiology DNP notes reviewed. Patient is going to be medically managed. It is clear that it is understood and the patient is not going to be able to be maintained on antiplatelet therapy or anticoagulation. Patient's myelodysplastic syndrome does not prevent him from having cardiac procedures, just needs to be monitored with transfusions as necessary.
[2019-01-24 12:10] LABS: Calcium 8.5 mg/dL (8.4-10.2); Potassium 3.6 mmol/L (3.5-5.1)
--- NOTE | 2019-01-24 13:20 | P.PN ---
Subjective Progress Note Date: 01/24/19 This is a 73-year-old gentleman who follows regularly with Dr. Pace in the office. He has a known history of coronary artery disease with prior PCI, history also of hypertension, hyperlipidemia, chronic persistent atrial fibrillation, patient also had a recent diagnosis of myelodysplastic syndrome, he had been on Coumadin which was discontinued because of severe thrombocytopenia. His last echo performed in October 2017 revealed a normal left ventricular systolic function. His last Fiona scan was performed in October 2017 which did not show any evidence of reversible ischemia at that time. He presented to the hospital on this occasion with symptoms of severe shortness of breath, mostly exertional in nature which has been going off and on, persistently worsening over the past few weeks. Patient also states that he is heart racing fast and irregular. Lightheadedness as well. EKG on presentation here showed atrial flutter with rapid ventricular response. Chest x-ray showed posterior pleural effusions. He had been initiated on IV Cardizem drip in the emergency room as well as his home dose of beta uri, he continues this morning to be in atrial flutter with a heart rate of 130 to 140. Blood pressure 130/70 with a heart rate 1:30 to 140, 95% on 2 L of oxygen.White blood cell count 7.3, hemoglobin 7.6, platelet count 15 this morning. Sodium 143, potassium 4.7, BUN 25 and creatinine 1.2. Magnesium 1.8. troponin 0.034, 0.036, 0.044. BNP level 3570.TSH level normal at 2.4.at the time of my examination this morning, patient continues to feel awful, in his words, continues to feel short of breath and very weak. We will start the patient on amiodarone 400 mg one tablet daily this morning for more optimal heart rate control. We will also give the patient a dose of IV Lasix and then start him on some oral Lasix. 01/24/2019 Patient seen and examined this morning, feels somewhat short of breath. Heart rate earlier today was in the range of 100-106, later in the morning heart rate went up into the 05/11/1939 range. Through the night last night he was started on IV amiodarone, his IV Cardizem was discontinued this morning. We will increase the dose of metoprolol to 50 mg one tablet by mouth 3 times a day. Objective - Vital Signs Vital signs: Vital Signs Temp 98.7 F 01/24/19 12:00 Pulse 118 H 01/24/19 12:00 Resp 16 01/24/19 12:00 BP 110/68 01/24/19 12:00 Pulse Ox 93 L 01/24/19 12:00 Intake & Output 01/23/19 01/24/19 01/24/19 18:59 06:59 18:59 Intake Total 1517.75 590 Output Total 1999 875 300 Balance -482.25 -875 290 Weight 94.4 kg 93.9 kg Intake: IV 220 Invasive Line 2 60 Sodium Chloride 0.9% 1, 160 000 ml @ 80 mls/hr IV . [id number] ELISA Rx#:[id number] Intake, IV Titration 177.75 150 Amount Amiodarone 300 mg In 150 Dextrose 5% in Water 250 ml @ 0.5 MG/MIN 25 mls/hr IV .Q10H ELISA Rx#: [id number] Diltiazem 125 mg In 67.5 Sodium Chloride 0.9% 100 ml @ 10 MG/HR 10 mls/hr IV .[id number] ELISA Rx#: [id number] Diltiazem 125 mg In 110.25 Sodium Chloride 0.9% 100 ml @ 7.5 MG/HR 7.5 mls/hr IV .[id number] ELISA Rx#: [id number] Oral 1120 440 Output: Urine 1999 875 300 Other: Voiding Method Toilet Toilet Toilet Urinal Urinal # Voids 1 1 200 # Bowel Movements 0 0 - Exam PHYSICAL EXAMINATION: GENERAL:73-year-old gentleman in no acute distress at the time of my examination HEENT: Head is atraumatic, normocephalic. Pupils equal, round. Sclera anicteric. Conjunctiva are clear. Mucous membranes of the mouth are moist. Neck is supple. There is no elevated jugular venous pressure.no carotid bruit is heard. HEART EXAMINATION: [Heart S1, S2 irregularly irregular a systolic ejection murmur is heard CHEST EXAMINATION lungs are clear with diminished air entry to bilateral bases ABDOMEN: [ Soft, nontender. Bowel sounds are heard. No organomegaly noted]. EXTREMITIES:[ 2+ peripheral pulses with no evidence of peripheral edema and no calf tenderness notedPatient does have significant a brownish discoloration to both of his hands from his thrombocytopenia. NEUROLOGIC [patient is awake, alert and oriented X3.] . - Labs CBC & Chem 7: 01/23/19 05:48 01/24/19 11:10 Labs: Abnormal Lab Results - Last 24 Hours (Table) 01/24/19 Range/Units 11:10 Chloride 108 H (98-107) mmol/L BUN 29 H (9-20) mg/dL Creatinine 1.45 H (0.66-1.25) mg/dL Glucose 125 H (74-99) mg/dL Assessment and Plan Plan: assessment and plan #1 atrial flutter, typical, with rapid ventricular response #2 chronic persistent atrial fibrillation #3 coronary artery disease with prior stentingof the right coronary artery in 2012 #4 hypertension #5 hyperlipidemia #6 nicotine dependence #7 myelodysplastic syndrome, with associated low platelet count which is why the patient is not on anticoagulation Plan From cardiology's perspective, we'll increase the dose of metoprolol to 50 mg one tablet by mouth 3 times a day, once the IV amiodarone has infused we will change patient over to oral amiodarone. DNP note has been reviewed, I agree with a documented findings and plan of care. Patient was seen and examined.
[2019-01-24] MEDS: METOPROLOL TARTRATE 50 MG TAB PO SCH (16:07)
[2019-01-24] MEDS: ATORVASTATIN 80 MG TAB PO SCH (20:18)
--- NOTE | 2019-01-24 21:57 | P.PN ---
Progress Note - Text Progress Note Date: 01/24/19 Interval history: This is a pleasant 73-year-old patient of Dr. Watson Mares who presents with few weeks her shortness of breath. Admitted with atrial flutter with a rapid ventricular rate. Chronic stable medical conditions include coronary artery disease, GERD, hyperlipidemia, essential hypertension primary osteoarthritis and myelodysplastic syndrome. Because of low platelets, and has not been given with a known history of atrial flutter fibrillation. Also's coronary artery disease with stent. Today-a bit tired. Has been up to the bathroom. Heart rate has still been up. Beta uri increased today. No chest pain. and daughter the bedside. Review of systems: Was done for constitutional, cardiovascular, GI, pulmonary. relevant finding as above Active Medications Acetaminophen (Tylenol Tab) 650 mg PO Q6HR PRN PRN Reason: Mild Pain or Fever > 100.5 Hydrocodone Bitart/Acetaminophen ([place] 5-325) 1 each PO Q4HR PRN PRN Reason: Moderate Pain Atorvastatin Calcium (Lipitor) 80 mg PO HS [facility] Last Admin: 01/24/19 20:18 Dose: 80 mg Documented by: Doxazosin Mesylate (Cardura) 4 mg PO DAILY [facility] Last Admin: 01/24/19 09:16 Dose: 4 mg Documented by: Furosemide (Lasix) 40 mg PO BID@0900,1600 [facility] Last Admin: 01/24/19 16:07 Dose: 40 mg Documented by: Metoprolol Tartrate (Lopressor) 50 mg PO TID [facility] Last Admin: 01/24/19 16:07 Dose: 50 mg Documented by: Montelukast Sodium (Singulair) 10 mg PO DAILY [facility] Last Admin: 01/24/19 09:16 Dose: 10 mg Documented by: Naloxone HCl (Narcan) 0.2 mg IV Q2M PRN PRN Reason: Opioid Reversal Nitroglycerin (Nitrostat) 0.4 mg SUBLINGUAL Q5M PRN PRN Reason: Chest Pain Physical examination: VITAL SIGNS: 98.2, 132, 16, 100/56, 93% room air GENERAL: Average built, laying in bed a bit tired. EYES: Pupils equal. Conjunctiva normal. HEENT: External appearance of nose and ears normal, oral cavity grossly normal. NECK: JVD not raised; masses not palpable. HEART: Heart sounds irregular; no edema. LUNGS: Respiratory rate normal; clear to auscultation. ABDOMEN: Soft, nontender, liver spleen not palpable, no masses palpable. PSYCH: Alert and oriented x3; mood and affect normal. INVESTIGATIONS, reviewed in the clinical context: Telemetry shows A. fib with a rate uncontrolled Potassium 3.6 bun 29 and creatinine 1.45 Troponin I 0.036, 0.044, TSH 2.4 2-D echo EF 55-60%, moderate aortic stenosis Assessment: -Persistent atrial flutter fibrillation, rate still uncontrolled -Portal candidate for anticoagulant because of thrombocytopenia -Moderate aortic stenosis, nontraumatic -Troponin leak from atrial flutter fibrillation, not in acute coronary syndrome -Myelodysplastic syndrome -Coronary artery disease with history of stent -GERD -Essential hypertension -Hyperlipidemia -Primary osteoarthritis Plan: Patient on by mouth Lasix. Was on Lopressor was increased to 50 mg 3 times a day. Care was discussed with the patient. Encouraged to ambulate as tolerated. Discussed with the patient and . Follow with cardiology.
[2019-01-25] MEDS: METOPROLOL TARTRATE 50 MG TAB PO SCH ×5 (00:43→22:00)
[2019-01-25 07:30] LABS: Anisocytosis Slight; HGB 7.7 gm/dL (13.0-17.5); Hypochromasia Moderate; MCV 93.6 fL (80.0-100.0); Mean Platelet Volume 8.9; Poikilocytosis Slight; RBC 2.56 m/uL (4.30-5.90); RDW 17.5 % (11.5-15.5); WBC 9.2 k/uL (3.8-10.6)
[2019-01-25 07:45] LABS: Platelet Count 13 k/uL (150-450)
[2019-01-25] MEDS ORDERED: AMIODARONE 200 MG TAB PO SCH (09:00)
[2019-01-25] MEDS: MONTELUKAST 10 MG TAB PO SCH (09:14)
[2019-01-25] MEDS: FUROSEMIDE 40 MG TAB PO SCH ×3 (09:14→18:21)
[2019-01-25] MEDS: DOXAZOSIN 4 MG TAB PO SCH (09:14)
[2019-01-25] MEDS: NITROGLYCERIN SL TABS 0.4 MG TAB SUBLINGUAL PRN ×3 (09:17→09:28)
[2019-01-25] MEDS ORDERED: CLINDAMYCIN 600 MG in SODIUM CHLORIDE 0.9% IRRIGATIO 250 ML IRRIGATION ONE (13:11)
[2019-01-25] MEDS ORDERED: CLINDAMYCIN 900 MG in DEXTROSE 5% IN WATER 50 ML IVPB ONE ×2 (13:11)
[2019-01-25] MEDS ORDERED: LIDOCAINE 1% INJ 10MG/ML (20 ML MDV) SQ ONE ×2 (14:22→16:15)
[2019-01-25] MEDS ORDERED: SODIUM CHLORIDE 0.9% 1,000 ML IV ONE (15:04)
[2019-01-25] MEDS ORDERED: MIDAZOLAM 2 MG/2 ML VIAL ONE (15:04)
[2019-01-25] MEDS ORDERED: fentaNYL (PF) 50 MCG/ML 2 ML AMP ONE (15:04)
[2019-01-25] MEDS ORDERED: IOPAMIDOL-250 50ML BTL IV ONE (15:39)
[2019-01-25] MEDS ORDERED: LIDOCAINE 1% INJ 10MG/ML (20 ML MDV) ONE (15:55)
[2019-01-25] MEDS ORDERED: ACETAMINOPHEN IV (For NPO) 1,000 MG in EMPTY BAG 1 BAG IVPB ONE (17:23)
[2019-01-25] MEDS: SODIUM CHLORIDE 0.9% 1,000 ML IV SCH ×2 (18:14→18:22)
--- NOTE | 2019-01-25 18:27 | P.PN ---
Progress Note - Text Progress Note Date: 01/25/19 Interval history: This is a pleasant 73-year-old patient of Dr. Watson Mares who presents with few weeks her shortness of breath. Admitted with atrial flutter with a rapid ventricular rate. Chronic stable medical conditions include coronary artery disease, GERD, hyperlipidemia, essential hypertension primary osteoarthritis and myelodysplastic syndrome. Because of low platelets, and has not been given anticoagulation, with a known history of atrial flutter fibrillation. Also's coronary artery disease with stent. Today-yesterday and overnight patient had episodes of heart rate going up to the 130s and dropping down to the 40s. Patient is symptomatic. And heart fluttering. And some chest pressure. Also short of breath. Seen by Dr. Ayala later today. Contemplating pacemaker. and daughter the bedside. Review of systems: Was done for constitutional, cardiovascular, GI, pulmonary. relevant finding as above Active Medications Acetaminophen (Tylenol Tab) 650 mg PO Q6HR PRN PRN Reason: Mild Pain or Fever > 100.5 Last Admin: 01/25/19 00:42 Dose: 650 mg Documented by: Acetaminophen (Tylenol Tab) 650 mg PO Q6HR PRN PRN Reason: Mild Pain Hydrocodone Bitart/Acetaminophen ([place] 5-325) 1 each PO Q4HR PRN PRN Reason: Moderate Pain Last Admin: 01/25/19 05:49 Dose: 1 each Documented by: Hydrocodone Bitart/Acetaminophen ([place] 5-325) 1 each PO Q4HR PRN PRN Reason: Pain Atorvastatin Calcium (Lipitor) 80 mg PO HS [facility] Last Admin: 01/24/19 20:18 Dose: 80 mg Documented by: Doxazosin Mesylate (Cardura) 4 mg PO DAILY [facility] Last Admin: 01/25/19 09:14 Dose: 4 mg Documented by: Furosemide (Lasix) 40 mg PO BID@0900,1600 [facility] Last Admin: 01/25/19 18:21 Dose: 40 mg Documented by: Sodium Chloride (Saline 0.9%) 1,000 mls @ 50 mls/hr IV .Q20H [facility] Last Admin: 01/25/19 18:14 Dose: Not Given Documented by: Sodium Chloride (Saline 0.9%) 1,000 mls @ 50 mls/hr IV .Q20H [facility] Last Admin: 01/25/19 18:22 Dose: 50 mls/hr Documented by: Clindamycin Phosphate 900 mg/ (Dextrose/Water) 56 mls @ 50 mls/hr IVPB Q6H [facility] Stop: 01/26/19 17:08 Metoprolol Tartrate (Lopressor) 100 mg PO TID [facility] Last Admin: 01/25/19 18:21 Dose: 100 mg Documented by: Montelukast Sodium (Singulair) 10 mg PO DAILY [facility] Last Admin: 01/25/19 09:14 Dose: 10 mg Documented by: Naloxone HCl (Narcan) 0.2 mg IV Q2M PRN PRN Reason: Opioid Reversal Nitroglycerin (Nitrostat) 0.4 mg SUBLINGUAL Q5M PRN PRN Reason: Chest Pain Last Admin: 01/25/19 09:28 Dose: 0.4 mg Documented by: Sodium (Saline Flush) 10 ml IV Q12HR [facility] Physical examination: VITAL SIGNS: 98 4, heart rate anywhere from 140s down to 40s, 97/50, 93% on 2 L GENERAL: laying in bed a bit tired. EYES: Pupils equal. Conjunctiva normal. HEENT: External appearance of nose and ears normal, oral cavity grossly normal. NECK: JVD not raised; masses not palpable. HEART: Heart sounds irregular; no edema. LUNGS: Respiratory rate normal; clear to auscultation. ABDOMEN: Soft, nontender, liver spleen not palpable, no masses palpable. PSYCH: Alert and oriented x3; mood and affect anxious INVESTIGATIONS, reviewed in the clinical context: White count 9.2 hemoglobin 7.7 platelets 13 Telemetry shows A. fib with a rate anywhere from 40s to 140s Previous testing Potassium 3.6 bun 29 and creatinine 1.45 Troponin I 0.036, 0.044, TSH 2.4 2-D echo EF 55-60%, moderate aortic stenosis Assessment: -Persistent atrial flutter fibrillation, uncontrolled, heart rate anywhere from 40s to 140s, patient symptomatic -Not a candidate for anticoagulant because of thrombocytopenia -Moderate aortic stenosis, nontraumatic -Troponin leak from atrial flutter fibrillation, not in acute coronary syndrome -Myelodysplastic syndrome -Coronary artery disease with history of stent -GERD -Essential hypertension -Hyperlipidemia -Primary osteoarthritis Plan: Care was discussed with the patient and daughter. Patient seen by Dr. Ayala earlier today. Patient may get a pacemaker. Other medications to continue. Patient was reassured. Follow with cardiology.
[2019-01-25] MEDS: CLINDAMYCIN 900 MG in DEXTROSE 5% IN WATER 50 ML IVPB SCH ×2 (18:36)
[2019-01-25] MEDS: ATORVASTATIN 80 MG TAB PO SCH (20:01)
[2019-01-26] MEDS: CLINDAMYCIN 900 MG in DEXTROSE 5% IN WATER 50 ML IVPB SCH ×6 (00:17→16:18)
[2019-01-26] MEDS: HYDROcodone/APAP 5-325MG 1 EACH TAB PO PRN ×2 (03:47→16:18)
--- NOTE | 2019-01-26 06:20 | CE ---
CARDIAC ELECTROPHYSIOLOGY REPORT Russell Bundy is 73-year-old male patient who has atrial fibrillation, atrial flutter with RVR. He cannot be anticoagulated on account of his hematologic problems and therefore electrical cardioversion and ablation cannot be performed for risk of stroke. He was started on amiodarone as well as beta blockers for rate control. There was suboptimal rate control and subsequently he started having pauses (tachy-regi syndrome). In view of his tachy-regi syndrome, inability to control his heart rates and yet having episodes of significant bradycardia, permanent pacemaker with AV junction modification was considered and recommended. A biventricular pacemaker was recommended today to avoid 100% RV pacing for tachy-regi syndrome and possible future AV node ablation. The patient was brought to the EP lab in a fasting state. Written informed consent was obtained prior to the procedure. The left shoulder area was prepped and draped as per protocol and 1% lidocaine was used for local anesthesia. The patient's platelet count was 13,000. Subfascial pocket was made. Hemostasis was assured. The left axillary vein was accessed at 2 separate points and via appropriately-sized introducer sheaths 2 leads were positioned. The RV lead was positioned in the RV apex. This was a [employer] model #5076, 58 cm in length and serial number [id number]. This was positioned in the RV apex and screwed in the R-waves were 9.2 mV, pacing impedance 922 ohms, pacing threshold 0.7 V at 0.5 milliseconds. Ten volt test was negative. The second lead was implanted in the His bundle area for physiologic septal pacing. This lead was screwed in the His bundle area. This was screwed deep into the ventricle for nonselective capture. Nonselective capture was noted from high output down to 2.2 V at 1 millisecond. Subsequently, there was RV capture and complete loss of capture occurred at 1 V at 1 millisecond. Both leads were secured to the underlying pectoralis fascia using 2 nonabsorbable sutures. Pocket was irrigated with antibiotic solution. Leads were connected to the generator (biventricular pacemaker [employer], model number W1TR02, serial number [id number]. The atrial port was plugged. The leads and generator were then placed in subfascial pocket. The wound was closed in 3 layers and dressed per protocol. RESULT: Successful biventricular pacemaker implantation for management of tachy-regi syndrome. PLAN: Increase beta blockers to 100 mg 3 times a day and as long as the patient can tolerate it. If the patient is intolerant of this on account of his low blood pressure or this provides inadequate rate control then we will proceed with AV junction modification after about 4 to 6 weeks. Digoxin may be avoided since his BUN and creatinine are elevated. Amiodarone will be discontinued to avoid inadvertent chemical cardioversion. MMODL / IJN: [id number] /
--- NOTE | 2019-01-26 07:20 | XR ---
EXAMINATION TYPE: XR chest 2V DATE OF EXAM: 01/26/2019 COMPARISON: Prior chest x-ray 4 days ago. HISTORY: History of asthma with shortness of breath and weakness. TECHNIQUE: Frontal and lateral views of the chest are obtained. FINDINGS: There is redemonstration of cardiomegaly. There is new dual-lead pacemaker with leads in right atrium and right ventricle. There is atherosclerotic and ectatic thoracic aorta. Persistent sm all bilateral pleural effusions with associated left basilar atelectasis and/or infiltrate. Effusion slightly larger versus prior with persistent mild central vascular congestion. New overlying sponge o r gauze material in the left anterior chest wall. Multilevel spurring in the spine. IMPRESSION: New Dual-lead pacemaker with leads projecting over right atrium and right ventricle. No pneumothorax. Cardiomegaly with slightly larger small bilateral pleural effusions. Overlying sponge o r gauze material noted, correlate clinically.
[2019-01-26] MEDS: MONTELUKAST 10 MG TAB PO SCH ×2 (08:08→08:12)
[2019-01-26] MEDS: ACETAMINOPHEN TAB 325 MG TAB PO PRN (08:08)
[2019-01-26] MEDS: FUROSEMIDE 40 MG TAB PO SCH ×2 (08:08→16:17)
[2019-01-26] MEDS: METOPROLOL TARTRATE 50 MG TAB PO SCH ×3 (08:08→20:52)
[2019-01-26] MEDS: DOXAZOSIN 4 MG TAB PO SCH (08:08)
[2019-01-26 08:23] LABS: Anisocytosis Slight; HCT 25.3 % (39.0-53.0); HGB 8.1 gm/dL (13.0-17.5); Hypochromasia Marked; MCH 30.9 pg (25.0-35.0); MCHC 31.9 g/dL (31.0-37.0); MCV 96.8 fL (80.0-100.0); Macrocytosis Slight; Mean Platelet Volume 8.2; Poikilocytosis Slight; RBC 2.61 m/uL (4.30-5.90); WBC 9.8 k/uL (3.8-10.6)
[2019-01-26 08:25] LABS: Platelet Count 14 k/uL (150-450)
[2019-01-26] MEDS: SODIUM CHLORIDE 0.9% 1,000 ML IV SCH ×3 (12:26→16:17)
--- NOTE | 2019-01-26 14:04 | P.PN ---
Subjective Progress Note Date: 01/26/19 This is a 73-year-old gentleman who follows regularly with Dr. Pace in the office. He has a known history of coronary artery disease with prior PCI, history also of hypertension, hyperlipidemia, chronic persistent atrial fibrillation, patient also had a recent diagnosis of myelodysplastic syndrome, he had been on Coumadin which was discontinued because of severe thrombocytopenia. His last echo performed in October 2017 revealed a normal left ventricular systolic function. His last Fiona scan was performed in October 2017 which did not show any evidence of reversible ischemia at that time. He presented to the hospital on this occasion with symptoms of severe shortness of breath, mostly exertional in nature which has been going off and on, persistently worsening over the past few weeks. Patient also states that he is heart racing fast and irregular. Lightheadedness as well. EKG on presentation here showed atrial flutter with rapid ventricular response. Chest x-ray showed posterior pleural effusions. He had been initiated on IV Cardizem drip in the emergency room as well as his home dose of beta uri, he continues this morning to be in atrial flutter with a heart rate of 130 to 140. Blood pressure 130/70 with a heart rate 1:30 to 140, 95% on 2 L of oxygen.White blood cell count 7.3, hemoglobin 7.6, platelet count 15 this morning. Sodium 143, potassium 4.7, BUN 25 and creatinine 1.2. Magnesium 1.8. troponin 0.034, 0.036, 0.044. BNP level 3570.TSH level normal at 2.4.at the time of my examination this morning, patient continues to feel awful, in his words, continues to feel short of breath and very weak. We will start the patient on amiodarone 400 mg one tablet daily this morning for more optimal heart rate control. We will also give the patient a dose of IV Lasix and then start him on some oral Lasix. 01/24/2019 Patient seen and examined this morning, feels somewhat short of breath. Heart rate earlier today was in the range of 100-106, later in the morning heart rate went up into the 05/11/1939 range. Through the night last night he was started on IV amiodarone, his IV Cardizem was discontinued this morning. We will increase the dose of metoprolol to 50 mg one tablet by mouth 3 times a day. 01/26/2019 Patient underwent implantation of a permanent pacemaker yesterday by Dr. Nava, the device was interrogated this morning and is functioning appropriately.blood pressure 108/60, heart rate 120, 94% on 2 L of oxygen. Objective - Vital Signs Vital signs: Vital Signs Temp 98.3 F 01/26/19 10:25 Pulse 124 H 01/26/19 10:25 Resp 20 01/26/19 10:25 BP 89/57 01/26/19 10:25 Pulse Ox 93 L 01/26/19 10:25 Intake & Output 01/25/19 01/26/19 01/26/19 18:59 06:59 18:59 Intake Total 755 160 Output Total 350 575 Balance 405 -415 Weight 89 kg Intake: IV 195 Oral 560 160 Output: Urine 350 575 Other: Voiding Method Toilet Toilet Toilet Urinal Urinal Urinal # Voids 1 # Bowel Movements 0 - Exam PHYSICAL EXAMINATION: GENERAL:73-year-old gentleman in no acute distress at the time of my examination HEENT: Head is atraumatic, normocephalic. Pupils equal, round. Sclera anicteric. Conjunctiva are clear. Mucous membranes of the mouth are moist. Nec k is supple. There is no elevated jugular venous pressure.no carotid bruit is heard. HEART EXAMINATION: [Heart S1, S2 irregularly irregular a systolic ejection murmur is heard CHEST EXAMINATION lungs are clear with diminished air entry to bilateral bases site of pacemaker implantation, clean and dry ABDOMEN: [ Soft, nontender. Bowel sounds are heard. No organomegaly noted]. EXTREMITIES:[ 2+ peripheral pulses with no evidence of peripheral edema and no calf tenderness notedPatient does have significant a brownish discoloration to both of his hands from his thrombocytopenia. NEUROLOGIC [patient is awake, alert and oriented X3.] . - Labs CBC & Chem 7: 01/26/19 07:45 01/24/19 11:10 Labs: Abnormal Lab Results - Last 24 Hours (Table) 01/26/19 Range/Units 07:45 RBC 2.61 L (4.30-5.90) m/uL Hgb 8.1 L (13.0-17.5) gm/dL Hct 25.3 L (39.0-53.0) % RDW 18.0 H (11.5-15.5) % Plt Count 14 L* (150-450) k/uL Assessment and Plan Plan: assessment and plan #1 atrial flutter, typical, with rapid ventricular response #2 chronic persistent atrial fibrillation #3 coronary artery disease with prior stentingof the right coronary artery in 2012 #4 hypertension #5 hyperlipidemia #6 nicotine dependence #7 myelodysplastic syndrome, with associated low platelet count which is why the patient is not on anticoagulation #8 status post implantation of a permanent pacemaker Plan patient underwent implantation of a permanent pacemaker yesterday, device was interrogated this morning and is functioning appropriately. Chest x-ray did not show any evidence of a pneumothorax, it did show bilateral small pleural effusions. We will continue patient on his current medications. Continue continue to observe for 24 hours, plan for possible discharge home in the morning if stable DNP note has been reviewed, I agree with a documented findings and plan of care. Patient was seen and examined.
--- NOTE | 2019-01-26 16:43 | P.PN ---
Subjective Progress Note Date: 01/26/19 The patient is status post pacemaker placement. He tolerated the procedure well. He denied any unusual bleeding, bruising, or pain at the site. No recurrence of chest pain or significant palpitations. Shortness of breath is improved Objective - Vital Signs Vital signs: Vital Signs Temp 98.3 F 01/26/19 10:25 Pulse 124 H 01/26/19 10:25 Resp 20 01/26/19 10:25 BP 89/57 01/26/19 10:25 Pulse Ox 93 L 01/26/19 10:25 Intake & Output 01/25/19 01/26/19 01/26/19 18:59 06:59 18:59 Intake Total 755 160 600 Output Total 350 575 Balance 405 -415 600 Weight 89 kg 89 kg Intake: IV 195 Oral 560 160 600 Output: Urine 350 575 Other: Voiding Method Toilet Toilet Toilet Urinal Urinal Urinal # Voids 1 # Bowel Movements 0 - Constitutional General appearance: Present: no acute distress - EENT Eyes: Present: EOMI ENT: Present: hearing grossly normal, normal oropharynx - Respiratory Respiratory: bilateral: CTA - Cardiovascular Rhythm: regular Heart sounds: normal: S1, S2 - Gastrointestinal General gastrointestinal: Present: normal bowel sounds, soft - Integumentary Integumentary: Present: normal - Neurologic Neurologic: Present: CNII-XII intact - Musculoskeletal Musculoskeletal: Present: generalized weakness, strength equal bilaterally - Psychiatric Psychiatric: Present: A&O x's 3, appropriate affect - Labs CBC & Chem 7: 01/26/19 07:45 01/24/19 11:10 Labs: Abnormal Lab Results - Last 24 Hours (Table) 01/26/19 Range/Units 07:45 RBC 2.61 L (4.30-5.90) m/uL Hgb 8.1 L (13.0-17.5) gm/dL Hct 25.3 L (39.0-53.0) % RDW 18.0 H (11.5-15.5) % Plt Count 14 L* (150-450) k/uL Assessment and Plan (1) MDS (myelodysplastic syndrome) Narrative/Plan: Long-standing issue, present at diagnosis. Diagnostic and therapeutic circumstances noted in HPI. The patient is stable from our standpoint, with counts and a safe range. Continue follow-up as an outpatient, with ongoing transfusion support Current Visit: Yes Status: Acute Priority: High Code(s): D46.9 - MYELODYSPLASTIC SYNDROME, UNSPECIFIED SNOMED Code(s): 753055691 (2) Atrial flutter with rapid ventricular response Narrative/Plan: The patient is status post pacemaker placement. He tolerated the procedure well without any unusual bleeding. It was discussed with him that ideally someone in the circumstances would be placed on anticoagulation. Given his history he would ideally also be evaluated for catheterization and intervention if required. However due to his MDS and chronic cytopenias is not a candidate for the same. For anticoagulation or antiplatelet therapy, the patient should have a platelet count of greater than 50,000 on an ongoing basis. However with his myelodysplasia , and clinical history, it would not be possible to maintain his platelet count above that level over the long-term. Thus anticoagulation or antiplatelet therapy would not be recommended for him, based on careful evaluation of risk-benefit. The patient's questions were answered in detail. He expressed understanding of the same. Current Visit: Yes Status: Acute Code(s): I48.92 - UNSPECIFIED ATRIAL FLUTTER SNOMED Code(s): 5598311 Plan: Defer to the admitting service and other consultants for management of his other medical issues
[2019-01-26] MEDS: ATORVASTATIN 80 MG TAB PO SCH (20:52)
--- NOTE | 2019-01-26 22:32 | P.PN ---
Progress Note - Text Progress Note Date: 01/26/19 Interval history: This is a pleasant 73-year-old patient of Dr. Watson Mares who presents with few weeks her shortness of breath. Admitted with atrial flutter with a rapid ventricular rate. Chronic stable medical conditions include coronary artery disease, GERD, hyperlipidemia, essential hypertension primary osteoarthritis and myelodysplastic syndrome. Because of low platelets, and has not been given anticoagulation, with a known history of atrial flutter fibrillation. Also's coronary artery disease with stent. Because of tachybradycardia syndrome patient had a biventricular pacemaker placed on January 25 Today-sitting up in a chair. Feels better. Breathing stable. Blood pressures running a bit on the low side. Did tolerate her diet. Review of systems: Was done for constitutional, cardiovascular, GI, pulmonary. relevant finding as above Active Medications Acetaminophen (Tylenol Tab) 650 mg PO Q6HR PRN PRN Reason: Mild Pain Last Admin: 01/26/19 08:08 Dose: 650 mg Documented by: Hydrocodone Bitart/Acetaminophen ([place] 5-325) 1 each PO Q4HR PRN PRN Reason: Pain Last Admin: 01/26/19 16:18 Dose: 1 each Documented by: Atorvastatin Calcium (Lipitor) 80 mg PO HS [facility] Last Admin: 01/26/19 20:52 Dose: 80 mg Documented by: Docusate Sodium (Colace) 100 mg PO DAILY PRN PRN Reason: Constipation Doxazosin Mesylate (Cardura) 4 mg PO DAILY [facility] Last Admin: 01/26/19 08:08 Dose: 4 mg Documented by: Furosemide (Lasix) 40 mg PO BID@0900,1600 [facility] Last Admin: 01/26/19 16:17 Dose: 40 mg Documented by: Sodium Chloride (Saline 0.9%) 1,000 mls @ 50 mls/hr IV .Q20H [facility] Last Admin: 01/26/19 16:17 Dose: 50 mls/hr Documented by: Sodium Chloride (Saline 0.9%) 1,000 mls @ 50 mls/hr IV .Q20H [facility] Last Admin: 01/26/19 16:17 Dose: Not Given Documented by: Metoprolol Tartrate (Lopressor) 100 mg PO TID [facility] Last Admin: 01/26/19 20:52 Dose: 100 mg Documented by: Montelukast Sodium (Singulair) 10 mg PO DAILY [facility] Last Admin: 01/26/19 08:12 Dose: 10 mg Documented by: Naloxone HCl (Narcan) 0.2 mg IV Q2M PRN PRN Reason: Opioid Reversal Nitroglycerin (Nitrostat) 0.4 mg SUBLINGUAL Q5M PRN PRN Reason: Chest Pain Last Admin: 01/25/19 09:28 Dose: 0.4 mg Documented by: Sodium Chloride (Saline Flush) 10 ml IV Q12HR [facility] Last Admin: 01/26/19 20:53 Dose: Not Given Documented by: Physical examination: VITAL SIGNS: 98.1, 118, 20, 85/57, 94% on 2 L GENERAL: Sitting upon a chair, more comfortable EYES: Pupils equal. Conjunctiva normal. HEENT: External appearance of nose and ears normal, oral cavity grossly normal. NECK: JVD not raised; masses not palpable. HEART: Heart sounds irregular; no edema. LUNGS: Respiratory rate normal; clear to auscultation. ABDOMEN: Soft, nontender, liver spleen not palpable, no masses palpable. PSYCH: Alert and oriented x3; mood and affect anxious CHEST wall: Dressing over the pacemaker site with left arm in a sling INVESTIGATIONS, reviewed in the clinical context: White count 9.8 hemoglobin 8.1 platelets is 14 Previous testing Potassium 3.6 bun 29 and creatinine 1.45 Troponin I 0.036, 0.044, TSH 2.4 2-D echo EF 55-60%, moderate aortic stenosis Assessment: -Persistent atrial flutter fibrillation, uncontrolled, heart rate anywhere from 40s to 140s, with tachybradycardia syndrome patient requiring a biventricular pacemaker -Not a candidate for anticoagulant because of thrombocytopenia -Moderate aortic stenosis, nontraumatic -Troponin leak from atrial flutter fibrillation, not in acute coronary syndrome -Myelodysplastic syndrome -Coronary artery disease with history of stent -GERD -Essential hypertension -Hyperlipidemia -Primary osteoarthritis Plan: Continue current medication treatment plan. Overall feeling better. Blood pressures running on the lower side. Follow with cardiology.
[2019-01-27 07:59] LABS: Anisocytosis Slight; HCT 21.8 % (39.0-53.0); Hypochromasia Marked; MCH 29.8 pg (25.0-35.0); MCHC 31.5 g/dL (31.0-37.0); MCV 94.4 fL (80.0-100.0); Mean Platelet Volume 6.7; Poikilocytosis Slight; RBC 2.31 m/uL (4.30-5.90); RDW 17.3 % (11.5-15.5); WBC 6.9 k/uL (3.8-10.6)
[2019-01-27 08:20] LABS: HGB 6.9 gm/dL (13.0-17.5)
[2019-01-27 08:21] LABS: Platelet Count 12 k/uL (150-450)
[2019-01-27] MEDS: ACETAMINOPHEN TAB 325 MG TAB PO PRN ×2 (09:10→18:17)
[2019-01-27] MEDS: DOCUSATE 100 MG CAP PO PRN (09:10)
[2019-01-27] MEDS: METOPROLOL TARTRATE 50 MG TAB PO SCH ×3 (09:10→21:12)
[2019-01-27] MEDS: MONTELUKAST 10 MG TAB PO SCH (09:11)
[2019-01-27] MEDS: DOXAZOSIN 4 MG TAB PO SCH (09:11)
[2019-01-27] MEDS: SODIUM CHLORIDE 0.9% 1,000 ML IV SCH (11:29)
[2019-01-27] MEDS: FUROSEMIDE 40 MG TAB PO SCH ×2 (11:32→18:17)
--- NOTE | 2019-01-27 12:15 | P.PN ---
Subjective Progress Note Date: 01/27/19 This is a 73-year-old gentleman who follows regularly with Dr. Pace in the office. He has a known history of coronary artery disease with prior PCI, history also of hypertension, hyperlipidemia, chronic persistent atrial fibrillation, patient also had a recent diagnosis of myelodysplastic syndrome, he had been on Coumadin which was discontinued because of severe thrombocytopenia. His last echo performed in October 2017 revealed a normal left ventricular systolic function. His last Fiona scan was performed in October 2017 which did not show any evidence of reversible ischemia at that time. He presented to the hospital on this occasion with symptoms of severe shortness of breath, mostly exertional in nature which has been going off and on, persistently worsening over the past few weeks. Patient also states that he is heart racing fast and irregular. Lightheadedness as well. EKG on presentation here showed atrial flutter with rapid ventricular response. Chest x-ray showed posterior pleural effusions. He had been initiated on IV Cardizem drip in the emergency room as well as his home dose of beta uri, he continues this morning to be in atrial flutter with a heart rate of 130 to 140. Blood pressure 130/70 with a heart rate 1:30 to 140, 95% on 2 L of oxygen.White blood cell c ount 7.3, hemoglobin 7.6, platelet count 15 this morning. Sodium 143, potassium 4.7, BUN 25 and creatinine 1.2. Magnesium 1.8. troponin 0.034, 0.036, 0.044. BNP level 3570.TSH level normal at 2.4.at the time of my examination this morning, patient continues to feel awful, in his words, continues to feel short of breath and very weak. We will start the patient on amiodarone 400 mg one tablet daily this morning for more optimal heart rate control. We will also give the patient a dose of IV Lasix and then start him on some oral Lasix. 01/24/2019 Patient seen and examined this morning, feels somewhat short of breath. Heart rate earlier today was in the range of 100-106, later in the morning heart rate went up into the 05/11/1939 range. Through the night last night he was started on IV amiodarone, his IV Cardizem was discontinued this morning. We will increase the dose of metoprolol to 50 mg one tablet by mouth 3 times a day. 01/26/2019 Patient underwent implantation of a permanent pacemaker yesterday by Dr. Nava, the device was interrogated this morning and is functioning a ppropriately.blood pressure 108/60, heart rate 120, 94% on 2 L of oxygen. 01/27/2019 he states he has mild pain at incision site and continues to have chronic shortness of breath. blood pressure stable. Heart rates continue to be elevated in the 120s to 140s. SpO2 96% on 2 L. CBC this morning shows hemoglobin dropped to 6.9. And platelet count 12. Objective - Vital Signs Vital signs: Vital Signs Temp 98.8 F 01/27/19 11:45 Pulse 113 H 01/27/19 11:45 Resp 22 01/27/19 11:45 BP 92/64 01/27/19 11:45 Pulse Ox 96 01/27/19 11:45 Intake & Output 01/26/19 01/27/19 01/27/19 18:59 06:59 18:59 Intake Total 840 422 180 Output Total 600 600 Balance 240 -178 180 Weight 89 kg 89.4 kg Intake: Oral 840 422 180 Blood Product 0 Rc As-1 Unit 0 [id number] Output: Urine 600 600 Other: Voiding Method Toilet Toilet Urinal Urinal # Voids 1 2 - Exam GENERAL: Well-appearing, obese and in no acute distress. NECK: Supple without JVD or thyromegaly. LUNGS: Breath sounds clear to auscultation bilaterally. Respiration equal and unlabored. No wheezes, rales or rhonchi. HEART: Rate regular, but tachycardic. Unable to appreciate murmurs, rubs or gallops. EXTREMITIES: Normal range of motion, no edema. No clubbing or cyanosis. Peripheral pulses intact and strong. pacemaker dressing clean, dry, intact. - Labs CBC & Chem 7: 01/27/19 06:44 01/24/19 11:10 Labs: Abnormal Lab Results - Last 24 Hours (Table) 01/27/19 01/27/19 Range/Units 06:44 09:28 RBC 2.31 L (4.30-5.90) m/uL Hgb 6.9 L* (13.0-17.5) gm/dL Hct 21.8 L (39.0-53.0) % RDW 17.3 H (11.5-15.5) % Plt Count 12 L* (150-450) k/uL Crossmatch See Detail Assessment and Plan Assessment: #1 atrial flutter, typical, with rapid ventricular response #2 sick sinus syndrome s/p permanent pacemaker #3 coronary artery disease with prior stenting of the right coronary artery in 2013 #4 hypertension #5 hyperlipidemia #6 nicotine dependence #7 myelodysplastic syndrome, with associated low platelet count which is why the patient is not on anticoagulation Plan: continue current medication regimen. If heart rates do not control on current dose of beta uri within the next several days, AV node ablation will be considered. Continue to monitor closely.
--- NOTE | 2019-01-27 17:51 | P.PN ---
Progress Note - Text Progress Note Date: 01/27/19 Interval history: This is a pleasant 73-year-old patient of Dr. Watson Mares who presents with few weeks her shortness of breath. Admitted with atrial flutter with a rapid ventricular rate. Chronic stable medical conditions include coronary artery disease, GERD, hyperlipidemia, essential hypertension primary osteoarthritis and myelodysplastic syndrome. Because of low platelets, and has not been given anticoagulation, with a known history of atrial flutter fibrillation. Also's coronary artery disease with stent. Because of tachybradycardia syndrome patient had a biventricular pacemaker placed on January 25 Today-patient's heart is been running about 120 is at rest. Blood pressures run gurjit low. Tolerating his diet. Up to the bathroom.. Occasional dizziness. Review of systems: Was done for constitutional, cardiovascular, GI, pulmonary. relevant finding as above Active Medications Acetaminophen (Tylenol Tab) 650 mg PO Q6HR PRN PRN Reason: Mild Pain Last Admin: 01/27/19 09:10 Dose: 650 mg Documented by: Hydrocodone Bitart/Acetaminophen ([place] 5-325) 1 each PO Q4HR PRN PRN Reason: Pain Last Admin: 01/26/19 16:18 Dose: 1 each Documented by: Atorvastatin Calcium (Lipitor) 80 mg PO HS [facility] Last Admin: 01/26/19 20:52 Dose: 80 mg Documented by: Docusate Sodium (Colace) 100 mg PO DAILY PRN PRN Reason: Constipation Last Admin: 01/27/19 09:10 Dose: 100 mg Documented by: Doxazosin Mesylate (Cardura) 4 mg PO DAILY [facility] Last Admin: 01/27/19 09:11 Dose: 4 mg Documented by: Furosemide (Lasix) 40 mg PO BID@0900,1600 [facility] Last Admin: 01/27/19 11:32 Dose: 40 mg Documented by: Metoprolol Tartrate (Lopressor) 100 mg PO TID [facility] Last Admin: 01/27/19 16:46 Dose: 100 mg Documented by: Montelukast Sodium (Singulair) 10 mg PO DAILY [facility] Last Admin: 01/27/19 09:11 Dose: 10 mg Documented by: Naloxone HCl (Narcan) 0.2 mg IV Q2M PRN PRN Reason: Opioid Reversal Nitroglycerin (Nitrostat) 0.4 mg SUBLINGUAL Q5M PRN PRN Reason: Chest Pain Last Admin: 01/25/19 09:28 Dose: 0.4 mg Documented by: Sodium Chloride (Saline Flush) 10 ml IV Q12HR ELISA Last Admin: 01/27/19 16:46 Dose: 10 ml Documented by: Physical examination: VITAL SIGNS: 98.8, 113, 22, 92/64, 96% room air GENERAL: Sitting of the edge of the bed, eating his lunch EYES: Pupils equal. Conjunctiva normal. HEENT: External appearance of nose and ears normal, oral cavity grossly normal. NECK: JVD not raised; masses not palpable. HEART: Heart sounds irregular; no edema. LUNGS: Respiratory rate normal; clear to auscultation. ABDOMEN: Soft, nontender, liver spleen not palpable, no masses palpable. PSYCH: Alert and oriented x3; mood and affect anxious CHEST wall: Dressing over the pacemaker site with left arm in a sling INVESTIGATIONS, reviewed in the clinical context: White count 6.9 hemoglobin 6.9 platelets 12 Previous testing Potassium 3.6 bun 29 and creatinine 1.45 Troponin I 0.036, 0.044, TSH 2.4 2-D echo EF 55-60%, moderate aortic stenosis Assessment: -Persistent atrial flutter fibrillation, uncontrolled, heart rate anywhere from 40s to 140s, with tachybradycardia syndrome patient requiring a biventricular pacemaker. Heart rate still uncontrolled. With associated low blood pressure. -Not a candidate for anticoagulant because of thrombocytopenia -Moderate aortic stenosis, non- rheumatic -Troponin leak from atrial flutter fibrillation, not in acute coronary syndrome -Myelodysplastic syndrome, with symptomatic anemia -Coronary artery disease with history of stent -GERD -Essential hypertension -Hyperlipidemia -Primary osteoarthritis Plan: Patient will be getting a unit of blood today. And the heart rate does not go down then possibly patient will need to have ablation done. Pulse is guarded. Follow
[2019-01-27] MEDS: ATORVASTATIN 80 MG TAB PO SCH (21:12)
[2019-01-28] MEDS: ACETAMINOPHEN TAB 325 MG TAB PO PRN ×2 (01:08→09:10)
[2019-01-28 08:36] LABS: Calcium 8.7 mg/dL (8.4-10.2); Magnesium 1.8 mg/dL (1.6-2.3); Potassium 3.6 mmol/L (3.5-5.1)
[2019-01-28 08:46] LABS: Anisocytosis Slight; HCT 28.4 % (39.0-53.0); HGB 8.9 gm/dL (13.0-17.5); Hypochromasia Marked; MCH 29.7 pg (25.0-35.0); MCHC 31.5 g/dL (31.0-37.0); MCV 94.1 fL (80.0-100.0); Mean Platelet Volume 7.9; Poikilocytosis Slight; RBC 3.01 m/uL (4.30-5.90); RDW 17.4 % (11.5-15.5); WBC 6.8 k/uL (3.8-10.6)
[2019-01-28 08:58] LABS: Platelet Count 9 k/uL (150-450)
[2019-01-28] MEDS: METOPROLOL TARTRATE 50 MG TAB PO SCH ×3 (09:10→22:22)
[2019-01-28] MEDS: DOCUSATE 100 MG CAP PO PRN (09:10)
[2019-01-28] MEDS: MONTELUKAST 10 MG TAB PO SCH (09:10)
[2019-01-28] MEDS: FUROSEMIDE 40 MG TAB PO SCH ×2 (09:10→16:20)
[2019-01-28] MEDS: DOXAZOSIN 4 MG TAB PO SCH (09:11)
[2019-01-28 12:06] LABS: Band Neutrophils % 1 %; Lymphocytes # (M) 0.95 k/uL (1.0-4.8); Metamyelocytes # (M) 0.07 k/uL (0); Metamyelocytes % 1 %; Monocytes # (M) 1.02 k/uL (0-1.0); Myelocytes # (M) 0.07 k/uL (0); Myelocytes % 1 %; Neutrophils % (M) 70 %; Nucleated Red Blood Cells 0 /100 WBC (0-0); Total Cells Counted 200
[2019-01-28 12:11] LABS: Ovalocytes Present
[2019-01-28] MEDS: HYDROcodone/APAP 5-325MG 1 EACH TAB PO PRN (12:28)
--- NOTE | 2019-01-28 15:05 | P.PN ---
Subjective Progress Note Date: 01/28/19 This is a 73-year-old gentleman who follows regularly with Dr. Pace in the office. He has a known history of coronary artery disease with prior PCI, history also of hypertension, hyperlipidemia, chronic persistent atrial fibrillation, patient also had a recent diagnosis of myelodysplastic syndrome, he had been on Coumadin which was discontinued because of severe thrombocytopenia. His last echo performed in October 2017 revealed a normal left ventricular systolic function. His last Fiona scan was performed in October 2017 which did not show any evidence of reversible ischemia at that time. He presented to the hospital on this occasion with symptoms of severe shortness of breath, mostly exertional in nature which has been going off and on, persistently worsening over the past few weeks. Patient also states that he is heart racing fast and irregular. Lightheadedness as well. EKG on presentation here showed atrial flutter with rapid ventricular response. Chest x-ray showed posterior pleural effusions. He had been initiated on IV Cardizem drip in the emergency room as well as his home dose of beta uri, he continues this morning to be in atrial flutter with a heart rate of 130 to 140. Blood pressure 130/70 with a heart rate 1:30 to 140, 95% on 2 L of oxygen.White blood cell c ount 7.3, hemoglobin 7.6, platelet count 15 this morning. Sodium 143, potassium 4.7, BUN 25 and creatinine 1.2. Magnesium 1.8. troponin 0.034, 0.036, 0.044. BNP level 3570.TSH level normal at 2.4.at the time of my examination this morning, patient continues to feel awful, in his words, continues to feel short of breath and very weak. We will start the patient on amiodarone 400 mg one tablet daily this morning for more optimal heart rate control. We will also give the patient a dose of IV Lasix and then start him on some oral Lasix. Patient underwent implantation of a permanent pacemaker on 01/25/19. the device was interrogated on 01/26/19 and is functioning appropriately. 01/27/2019 he states he has mild pain at incision site and continues to have chronic shortness of breath. blood pressure stable. Heart rates continue to be elevated in the 120s to 140s. SpO2 96% on 2 L. CBC this morning shows hemoglobin dropped to 6.9. And platelet count 12. 01/28/19 Patient states he is feeling much better this morning after receiving 1 unit of packed red blood cells. He denies any chest pain, chest pressure, palpitations, dizziness, or vertigo. He is currently resting comfortably in bed. Incision dressing clean, dry, and intact. He continues to be tachycardic in the 120s. Hemoglobin has risen to 8.9 and platelet count has decreased to 9. Blood pressures in the 90s systolic. 96% on room air. Nursing staff noted inappropriate pacing spikes on telemetry strips. Dr. Nava notified. Objective - Vital Signs Vital signs: Vital Signs Temp 98.5 F 01/28/19 12:00 Pulse 130 H 01/28/19 12:00 Resp 24 01/28/19 12:00 BP 96/68 01/28/19 12:00 Pulse Ox 96 01/28/19 12:00 Intake & Output 01/27/19 01/28/19 01/28/19 18:59 06:59 18:59 Intake Total 1110 300 240 Output Total 600 850 Balance 510 -550 240 Weight 90 kg Intake: Intake, IV Titration 200 Amount Sodium Chloride 0.9% 1, 200 000 ml @ 50 mls/hr IV . Q20H ELISA Rx#:[id number] Oral 600 300 240 Blood Product 310 Rc As-1 Unit 310 [id number] Output: Urine 600 850 Other: Voiding Method Toilet Toilet # Voids 1 2 # Bowel Movements 1 - Exam GENERAL: Well-appearing, obese and in no acute distress. NECK: Supple without JVD or thyromegaly. LUNGS: Breath sounds clear to auscultation bilaterally. Respiration equal and unlabored. No wheezes, rales or rhonchi. HEART: Regular rate, however tachycardic. No murmurs, rubs or gallops. S1 and S2 heard. EXTREMITIES: Normal range of motion, no edema. No clubbing or cyanosis. Peripheral pulses intact and strong. Pacemaker site dressing clean, dry, and intact. - Labs CBC & Chem 7: 01/28/19 07:59 01/28/19 07:59 Labs: Abnormal Lab Results - Last 24 Hours (Table) 01/27/19 01/28/19 01/28/19 Range/Units 09:28 07:59 07:59 RBC 3.01 L (4.30-5.90) m/uL Hgb 8.9 L D (13.0-17.5) gm/dL Hct 28.4 L (39.0-53.0) % RDW 17.4 H (11.5-15.5) % Plt Count 9 L* (150-450) k/uL Lymphocytes # (Manual) 0.95 L (1.0-4.8) k/uL Monocytes # (Manual) 1.02 H (0-1.0) k/uL Metamyelocytes # (Man) 0.07 H (0) k/uL Myelocytes # (Manual) 0.07 H (0) k/uL BUN 42 H (9-20) mg/dL Creatinine 1.47 H (0.66-1.25) mg/dL Crossmatch See Detail Assessment and Plan Assessment: #1 atrial flutter, typical, with rapid ventricular response #2 sick sinus syndrome s/p permanent pacemaker #3 coronary artery disease with prior stenting of the right coronary artery in 2012 #4 hypertension #5 hyperlipidemia #6 nicotine dependence #7 myelodysplastic syndrome, with associated low platelet count which is why the patient is not on anticoagulation Plan: Continue current medication regimen. Dr. Nava is considering an ablation if he does not respond to beta blockers. Continue to monitor closely.
[2019-01-28] MEDS: ATORVASTATIN 80 MG TAB PO SCH (22:22)
--- NOTE | 2019-01-28 22:56 | P.PN ---
Progress Note - Text Progress Note Date: 01/28/19 Interval history: This is a pleasant 73-year-old patient of Dr. Watson Mares who presents with few weeks her shortness of breath. Admitted with atrial flutter with a rapid ventricular rate. Chronic stable medical conditions include coronary artery disease, GERD, hyperlipidemia, essential hypertension primary osteoarthritis and myelodysplastic syndrome. Because of low platelets, and has not been given anticoagulation, with a known history of atrial flutter fibrillation. Also's coronary artery disease with stent. Because of tachybradycardia syndrome patient had a biventricular pacemaker placed on January 25. On January 27 did get a unit of blood. Today-hematocrit rest heart rate is been running into the 120s. The patient denies being dizzy or lightheaded. Being followed by Dr. Nava from . Did receive a unit of blood yesterday. Tolerating his diet. Review of systems: Was done for constitutional, cardiovascular, GI, pulmonary. relevant finding as above Active Medications Acetaminophen (Tylenol Tab) 650 mg PO Q6HR PRN PRN Reason: Mild Pain Last Admin: 01/28/19 09:10 Dose: 650 mg Documented by: Hydrocodone Bitart/Acetaminophen ([place] 5-325) 1 each PO Q4HR PRN PRN Reason: Pain Last Admin: 01/28/19 12:28 Dose: 1 each Documented by: Atorvastatin Calcium (Lipitor) 80 mg PO HS [facility] Last Admin: 01/28/19 22:22 Dose: 80 mg Documented by: Docusate Sodium (Colace) 100 mg PO DAILY PRN PRN Reason: Constipation Last Admin: 01/28/19 09:10 Dose: 100 mg Documented by: Doxazosin Mesylate (Cardura) 4 mg PO DAILY [facility] Last Admin: 01/28/19 09:11 Dose: 4 mg Documented by: Furosemide (Lasix) 40 mg PO BID@0900,1600 [facility] Last Admin: 01/28/19 16:20 Dose: 40 mg Documented by: Metoprolol Tartrate (Lopressor) 100 mg PO TID [facility] Last Admin: 01/28/19 22:22 Dose: 100 mg Documented by: Montelukast Sodium (Singulair) 10 mg PO DAILY [facility] Last Admin: 01/28/19 09:10 Dose: 10 mg Documented by: Naloxone HCl (Narcan) 0.2 mg IV Q2M PRN PRN Reason: Opioid Reversal Nitroglycerin (Nitrostat) 0.4 mg SUBLINGUAL Q5M PRN PRN Reason: Chest Pain Last Admin: 01/25/19 09:28 Dose: 0.4 mg Documented by: Sodium Chloride (Saline Flush) 10 ml IV Q12HR ELISA Last Admin: 01/28/19 22:23 Dose: 10 ml Documented by: Physical examination: VITAL SIGNS: 98.5, 130, 24, 96/68, 96% room air GENERAL: Sitting of the edge of the bed, comfortable EYES: Pupils equal. Conjunctiva normal. HEENT: External appearance of nose and ears normal, oral cavity grossly normal. NECK: JVD not raised; masses not palpable. HEART: Heart sounds irregular; no edema. LUNGS: Respiratory rate normal; clear to auscultation. ABDOMEN: Soft, nontender, liver spleen not palpable, no masses palpable. PSYCH: Alert and oriented x3; mood and affect anxious CHEST wall: Dressing over the pacemaker site with left arm in a sling INVESTIGATIONS, reviewed in the clinical context: White count 6.8 hemoglobin 8.9 platelets 9 potassium 3.6 Bun 42 creatinine 1.47 Previous testing Potassium 3.6 bun 29 and creatinine 1.45 Troponin I 0.036, 0.044, TSH 2.4 2-D echo EF 55-60%, moderate aortic stenosis Assessment: -Persistent atrial flutter fibrillation, uncontrolled, heart rate anywhere from 40s to 140s, with tachybradycardia syndrome patient requiring a biventricular pacemaker. Heart rate still uncontrolled. At rest. -Not a candidate for anticoagulant because of thrombocytopenia -Moderate aortic stenosis, non- rheumatic -Troponin leak from atrial flutter fibrillation, not in acute coronary syndrome -Myelodysplastic syndrome, with symptomatic anemia, status post 2 units of blood. Platelet counts are chronically dropping. Today 9 -Coronary artery disease with history of stent -GERD -Essential hypertension -Hyperlipidemia -Primary osteoarthritis Plan: Patient heart rate is still uncontrolled. Patient may need EP intervention. Discussed with the patient. Platelets are now down to 9. We'll discuss with hematology. In case patient needs intervention per EP. Discussed with the patient and .
[2019-01-29] MEDS: MONTELUKAST 10 MG TAB PO SCH (08:10)
[2019-01-29] MEDS: DOXAZOSIN 4 MG TAB PO SCH (08:10)
[2019-01-29] MEDS: FUROSEMIDE 40 MG TAB PO SCH ×2 (08:10→16:25)
[2019-01-29] MEDS: METOPROLOL TARTRATE 50 MG TAB PO SCH ×3 (08:10→22:46)
[2019-01-29 12:35] LABS: HCT 27.8 % (39.0-53.0); HGB 8.9 gm/dL (13.0-17.5); Hypochromasia Marked; MCHC 32.1 g/dL (31.0-37.0); MCV 93.5 fL (80.0-100.0); Mean Platelet Volume 7.4; Poikilocytosis Slight; RBC 2.97 m/uL (4.30-5.90); RDW 17.2 % (11.5-15.5)
[2019-01-29 12:44] LABS: Albumin 3.2 g/dL (3.5-5.0); Calcium 8.8 mg/dL (8.4-10.2); Potassium 3.6 mmol/L (3.5-5.1); Total Bilirubin 0.5 mg/dL (0.2-1.3); Total Protein 7.1 g/dL (6.3-8.2)
[2019-01-29 13:03] LABS: Platelet Count 14 k/uL (150-450)
[2019-01-29 13:04] LABS: Anisocytosis Slight
--- NOTE | 2019-01-29 13:32 | P.PN ---
Subjective Progress Note Date: 01/29/19 This is a 73-year-old gentleman who follows regularly with Dr. Pace in the office. He has a known history of coronary artery disease with prior PCI, history also of hypertension, hyperlipidemia, chronic persistent atrial fibrillation, patient also had a recent diagnosis of myelodysplastic syndrome, he had been on Coumadin which was discontinued because of severe thrombocytopenia. His last echo performed in October 2017 revealed a normal left ventricular systolic function. His last Fiona scan was performed in October 2017 which did not show any evidence of reversible ischemia at that time. He presented to the hospital on this occasion with symptoms of severe shortness of breath, mostly exertional in nature which has been going off and on, persistently worsening over the past few weeks. Patient also states that he is heart racing fast and irregular. Lightheadedness as well. EKG on presentation here showed atrial flutter with rapid ventricular response. Chest x-ray showed posterior pleural effusions. He had been initiated on IV Cardizem drip in the emergency room as well as his home dose of beta uri, he continues this morning to be in atrial flutter with a heart rate of 130 to 140. Blood pressure 130/70 with a heart rate 1:30 to 140, 95% on 2 L of oxygen.White blood cell count 7.3, hemoglobin 7.6, platelet count 15 this morning. Sodium 143, potassium 4.7, BUN 25 and creatinine 1.2. Magnesium 1.8. troponin 0.034, 0.036, 0.044. BNP level 3570.TSH level normal at 2.4.at the time of my examination this morning, patient continues to feel awful, in his words, continues to feel short of breath and very weak. We will start the patient on amiodarone 400 mg one tablet daily this morning for more optimal heart rate control. We will also give the patient a dose of IV Lasix and then start him on some oral Lasix. 01/24/2019 Patient seen and examined this morning, feels somewhat short of breath. Heart rate earlier today was in the range of 100-106, later in the morning heart rate went up into the 05/11/1939 range. Through the night last night he was started on IV amiodarone, his IV Cardizem was discontinued this morning. We will increase the dose of metoprolol to 50 mg one tablet by mouth 3 times a day. 01/26/2019 Patient underwent implantation of a permanent pacemaker yesterday by Dr. Nava, the device was interrogated this morning and is functioning appropriately.blood pressure 108/60, heart rate 120, 94% on 2 L of oxygen. 01/29/2019 Patient was seen and examined this morning, heart rate is staying pretty much in the 120 range today. Hemodynamically he is stable. Blood pressure 114/50 with a heart rate of 110 at present, 92% on room air. White blood cell count 6.1, hemoglobin 8.9, platelet count 14. Sodium 144, potassium 3.6, BUN 38, c reatinine 1.3. Objective - Vital Signs Vital signs: Vital Signs Temp 98.9 F 01/29/19 11:50 Pulse 80 01/29/19 11:50 Resp 20 01/29/19 11:50 BP 94/68 01/29/19 11:50 Pulse Ox 94 L 01/29/19 11:50 Intake & Output 01/28/19 01/29/19 01/29/19 18:59 06:59 18:59 Intake Total 600 240 Output Total 500 2000 Balance 100 -2000 240 Weight 88.5 kg Intake: Oral 600 240 Output: Urine 500 2000 Other: Voiding Method Toilet Toilet # Voids 1 1 - Exam PHYSICAL EXAMINATION: GENERAL:73-year-old gentleman in no acute distress at the time of my examination HEENT: Head is atraumatic, normocephalic. Pupils equal, round. Sclera anicteric. Conjunctiva are clear. Mucous membranes of the mouth are moist. Neck is supple. There is no elevated jugular venous pressure.no carotid bruit is heard. HEART EXAMINATION: [Heart S1, S2 irregularly irregular a systolic ejection murmur is heard CHEST EXAMINATION lungs are clear with diminished air entry to bilateral bases site of pacemaker implantation, clean and dry ABDOMEN: [ Soft, nontender. Bowel sounds are heard. No organomegaly noted]. EXTREMITIES:[ 2+ peripheral pulses with no evidence of peripheral edema and no calf tenderness notedPatient does have significant a brownish discoloration to both of his hands from his thrombocytopenia. NEUROLOGIC [patient is awake, alert and oriented X3.] . - Labs CBC & Chem 7: 01/29/19 12:15 10/21/19 12:15 Labs: Abnormal Lab Results - Last 24 Hours (Table) 01/29/19 01/29/19 Range/Units 12:15 12:15 RBC 2.97 L (4.30-5.90) m/uL Hgb 8.9 L (13.0-17.5) gm/dL Hct 27.8 L (39.0-53.0) % RDW 17.2 H (11.5-15.5) % Plt Count 14 L* D (150-450) k/uL BUN 38 H (9-20) mg/dL Creatinine 1.35 H (0.66-1.25) mg/dL Albumin 3.2 L (3.5-5.0) g/dL Assessment and Plan Plan: assessment and plan #1 atrial flutter, typical, with rapid ventricular response #2 chronic persistent atrial fibrillation #3 coronary artery disease with prior stentingof the right coronary artery in 2012 #4 hypertension #5 hyperlipidemia #6 nicotine dependence #7 myelodysplastic syndrome, with associated low platelet count which is why the patient is not on anticoagulation #8 status post implantation of a permanent pacemaker Plan Patient continues to be in atrial flutter with heart rate in the 120 range. We will continue with current medications, patient may require an ablation procedure. DNP note has been reviewed, I agree with a documented findings and plan of care. Patient was seen and examined.
[2019-01-29 13:46] LABS: Band Neutrophils % 2 %; Metamyelocytes # (M) 0.06 k/uL (0); Metamyelocytes % 1 %
[2019-01-29 13:48] LABS: Eosinophils # (M) 0.06 k/uL (0-0.7); Lymphocytes # (M) 0.71 k/uL (1.0-4.8); Monocytes # (M) 0.83 k/uL (0-1.0); Myelocytes # (M) 0.06 k/uL (0); Myelocytes % 1 %; Neutrophils % (M) 70 %; Nucleated Red Blood Cells 1 /100 WBC (0-0); Polychromasia Present; Total Cells Counted 200; WBC 5.9 k/uL (3.8-10.6)
--- NOTE | 2019-01-29 20:48 | CDI ---
Documentation Clarification Form Date: 01/29/2019 8:37:40 PM From: Kiara Juarez RN, CCDS Admit Date: 01/23/2019 1:34:00 PM Patient Name: Russell Bundy Visit Number: [id number] ATTENTION: The Clinical Documentation Specialists (CDI) and [facility] Coding Staff appreciate your assistance in clarifying documentation. Please respond to the clarification below the line at the bottom and electronically sign. The CDI & [facility] Coding staff will review the response and follow-up if needed. Please note: Queries are made part of the Legal Health Record. If you have any questions, please contact the author of this message via ITS. Dr. Shiva Nava Patient is noted to be on Po Lasix that was not a home medication. Please provide a diagnosis for clinical significance History/Risk Factors: Atrial Fib, HHTN, Asthma, CAD, MDS with anemia and thrombocytopenia, Sick sinus syndrome Clinical Indicators: VS/Pulse OX: Temp 98.1, HR 150, RR 16, B/P 97/65, Spo2 94% ra BNP: 3570 01/23 Echocardiogram Results: EF 55-60%, moderately dilated LA 01/26 Chest X Ray: "Cardiomegaly with slightly larger small bilateral pleural effusions." Treatment: 01/23 Lasix 40 mg IVP x 1 dose Followed by Lasix 40 mg PO BID Lopressor 100 mg PO Tid In your professional opinion, can you please provide clinical significance if known? Systolic Heart Failure: Acute Chronic Acute on Chronic Diastolic Heart Failure: Acute Chronic Acute on Chronic Systolic & Diastolic Heart Failure: Acute Chronic Acute on Chronic Heart Failure Unable to Determine Other, please specify (Last Revision: July 2017) Acute diastolic heart failure with preserved LV systolic function, in the setting of persistent atrial fibrillation/atrial flutter with persistent RVR, refractory to medical treatment MTDD
--- NOTE | 2019-01-29 20:49 | P.PN ---
Subjective Progress Note Date: 01/29/19 Principal diagnosis: MDS complicated with Atrial Flutter No acute complaints, at bedside. No bleeding, some spects of dry blood in morinng coughing. Platelets last night 9K and transfusion given per primary team, repeat CBC today. Plan for possible Ablation. Objective - Vital Signs Vital signs: Vital Signs Temp 98.6 F 01/29/19 17:25 Pulse 90 01/29/19 17:25 Resp 20 01/29/19 17:25 BP 112/68 01/29/19 17:25 Pulse Ox 94 L 01/29/19 16:45 Intake & Output 01/29/19 01/29/19 01/30/19 06:59 18:59 06:59 Intake Total 476 Output Total 1999 Balance -1999 476 Weight 88.5 kg Intake: Oral 476 Blood Product 0 Platelet Pheresis Acda1 0 Unit [id number] Output: Urine 1999 Other: Voiding Method Toilet # Voids 1 2 - Exam Constitutional General appearance: Present: no acute distress - EENT Eyes: Present: EOMI ENT: Present: hearing grossly normal, normal oropharynx - Respiratory Respiratory: bilateral: CTA - Cardiovascular Rhythm:irregular irregular - Gastrointestinal General gastrointestinal: Present: normal bowel sounds, soft - Integumentary Integumentary: multiple areas of eccymosis on extremities different stages - Neurologic Neurologic: Present: CNII-XII intact - Musculoskeletal Musculoskeletal: Present: generalized weakness, strength equal bilaterally - Psychiatric Psychiatric: Present: A&O x's 3, appropriate affect - Labs CBC & Chem 7: 01/29/19 12:15 01/29/19 12:15 Labs: Abnormal Lab Results - Last 24 Hours (Table) 01/29/19 01/29/19 Range/Units 12:15 12:15 RBC 2.97 L (4.30-5.90) m/uL Hgb 8.9 L (13.0-17.5) gm/dL Hct 27.8 L (39.0-53.0) % RDW 17.2 H (11.5-15.5) % Plt Count 14 L* D (150-450) k/uL Lymphocytes # (Manual) 0.71 L (1.0-4.8) k/uL Metamyelocytes # (Man) 0.06 H (0) k/uL Myelocytes # (Manual) 0.06 H (0) k/uL Nucleated RBCs 1 H (0-0) /100 WBC BUN 38 H (9-20) mg/dL Creatinine 1.35 H (0.66-1.25) mg/dL Albumin 3.2 L (3.5-5.0) g/dL Assessment and Plan Plan: Assessment and Plan MDS (myelodysplastic syndrome) - Long-standing issue, present at diagnosis. - Diagnostic and therapeutic circumstances noted in HPI. - The patient is stable from our standpoint, with counts and a safe range. - Continue follow-up as an outpatient, with ongoing transfusion support - Platelet transfusion prior or during procedures and/or platelets less than 10K or if signs of active bleeding Atrial flutter with rapid ventricular response - The patient is status post pacemaker placement. - He tolerated the procedure well without any unusual bleeding. It was discussed with him that ideally someone in the circumstances would be placed on anticoagulation. Given his history he would ideally also be evaluated for catheterization and intervention if required. However due to his MDS and c hronic cytopenias is not a candidate for anticoagulation or antiplatelet therapy, the patient should have a platelet count of greater than 50,000 on an ongoing basis. - However with his myelodysplasia , and clinical history, it would not be possible to maintain his platelet count above that level over the long-term. Thus anticoagulation or antiplatelet therapy would not be recommended for him, based on careful evaluation of risk-benefit. The patient's questions were answered in detail. He expressed understanding of the same. Plan: - Long discussion with patient and today regarding cardiac needs complicated by underlying MDS. - He follows with Dr. Hawk as outpatient and will defer treatment for MDS to Dr. Hawk. Defer to the admitting service and other consultants for management of his other medical issues
[2019-01-29] MEDS: ATORVASTATIN 80 MG TAB PO SCH (22:46)
--- NOTE | 2019-01-30 00:34 | P.PN ---
Progress Note - Text Progress Note Date: 01/29/19 Interval history: This is a pleasant 73-year-old patient of Dr. Watson Mares who presents with few weeks her shortness of breath. Admitted with atrial flutter with a rapid ventricular rate. Chronic stable medical conditions include coronary artery disease, GERD, hyperlipidemia, essential hypertension primary osteoarthritis and myelodysplastic syndrome. Because of low platelets, and has not been given anticoagulation, with a known history of atrial flutter fibrillation. Also's coronary artery disease with stent. Because of tachybradycardia syndrome patient had a biventricular pacemaker placed on January 25. On January 27 did get a unit of blood. On January 28 given 5 units of platelets. Today-heart rate remains in the 1 teens to 120. Tired. Last night given 5 units of platelets. Has the cough. 9. Discussed with Dr. chambers Review of systems: Was done for constitutional, cardiovascular, GI, pulmonary. relevant finding as above Active Medications Acetaminophen (Tylenol Tab) 650 mg PO Q6HR PRN PRN Reason: Mild Pain Last Admin: 01/28/19 09:10 Dose: 650 mg Documented by: Hydrocodone Bitart/Acetaminophen ([place] 5-325) 1 each PO Q4HR PRN PRN Reason: Pain Last Admin: 01/28/19 12:28 Dose: 1 each Documented by: Atorvastatin Calcium (Lipitor) [address] [facility] Last Admin: 01/29/19 22:46 Dose: 80 mg Documented by: Docusate Sodium (Colace) 100 mg PO DAILY PRN PRN Reason: Constipation Last Admin: 01/28/19 09:10 Dose: 100 mg Documented by: Doxazosin Mesylate (Cardura) [address] [facility] Last Admin: 01/29/19 08:10 Dose: 4 mg Documented by: Furosemide (Lasix) 40 mg PO BID@0900,1600 [facility] Last Admin: 01/29/19 16:25 Dose: 40 mg Documented by: Metoprolol Tartrate (Lopressor) [address] [facility] Last Admin: 01/29/19 22:46 Dose: 100 mg Documented by: Montelukast Sodium (Singulair) [address] [facility] Last Admin: 01/29/19 08:10 Dose: 10 mg Documented by: Naloxone HCl (Narcan) 0.2 mg IV Q2M PRN PRN Reason: Opioid Reversal Nitroglycerin (Nitrostat) 0.4 mg SUBLINGUAL Q5M PRN PRN Reason: Chest Pain Last Admin: 01/25/19 09:28 Dose: 0.4 mg Documented by: Sodium Chloride (Saline Flush) 10 ml IV Q12HR ELISA Last Admin: 01/29/19 08:10 Dose: 10 ml Documented by: Physical examination: VITAL SIGNS: 98.6, 120 20, 11 2/68, 94% room air GENERAL: Laying in bed, tired EYES: Pupils equal. Conjunctiva normal. HEENT: External appearance of nose and ears normal, oral cavity grossly normal. NECK: JVD not raised; masses not palpable. HEART: Heart sounds irregular; no edema. LUNGS: Respiratory rate normal; clear to auscultation. ABDOMEN: Soft, nontender, liver spleen not palpable, no masses palpable. PSYCH: Alert and oriented x3; mood and affect anxious CHEST wall: Dressing over the pacemaker site with left arm in a sling INVESTIGATIONS, reviewed in the clinical context: White count 5.9 hemoglobin 8.9 platelets 14 Bun 42 creatinine 1.47 Previous testing Potassium 3.6 bun 29 and creatinine 1.45 Troponin I 0.036, 0.044, TSH 2.4 2-D echo EF 55-60%, moderate aortic stenosis Assessment: -Persistent atrial flutter fibrillation, uncontrolled, heart rate anywhere from 40s to 140s, with tachybradycardia syndrome patient requiring a biventricular pacemaker. Heart rate still uncontrolled. At rest. -Not a candidate for anticoagulant because of thrombocytopenia -Moderate aortic stenosis, non- rheumatic -Troponin leak from atrial flutter fibrillation, not in acute coronary syndrome -Myelodysplastic syndrome, with symptomatic anemia, status post 2 units of blood. Received 5 units of platelet -Coronary artery disease with history of stent -GERD -Essential hypertension -Hyperlipidemia -Primary osteoarthritis Plan: Heart rate remains uncontrolled. Continue current medication treatment plan. Await further input from Dr. Nava
[2019-01-30] MEDS: METOPROLOL TARTRATE 50 MG TAB PO SCH ×2 (09:05→18:52)
[2019-01-30] MEDS: DOXAZOSIN 4 MG TAB PO SCH (09:06)
[2019-01-30] MEDS: MONTELUKAST 10 MG TAB PO SCH (09:06)
[2019-01-30] MEDS: FUROSEMIDE 40 MG TAB PO SCH ×2 (09:06→18:51)
--- NOTE | 2019-01-30 11:36 | P.PN ---
Subjective Progress Note Date: 01/30/19 Principal diagnosis: MDS complicated with Atrial Flutter Platelets up to 14K after transfusion, repeat today. Objective - Vital Signs Vital signs: Vital Signs Temp 98.8 F 01/30/19 08:40 Pulse 110 H 01/30/19 08:40 Resp 18 01/30/19 08:40 BP 117/60 01/30/19 08:40 Pulse Ox 94 L 01/30/19 08:40 Intake & Output 01/29/19 01/30/19 01/30/19 18:59 06:59 18:59 Intake Total 476 480 240 Output Total 750 Balance 476 -270 240 Weight 88.3 kg Intake: Oral 476 180 240 Blood Product 0 300 Platelet Pheresis Acda1 0 300 Unit [id number] Output: Urine 750 Other: Voiding Method Toilet # Voids 2 1 - Exam Constitutional General appearance: Present: no acute distress - EENT Eyes: Present: EOMI ENT: Present: hearing grossly normal, normal oropharynx - Respiratory Respiratory: bilateral: CTA - Cardiovascular Rhythm:irregular irregular - Gastrointestinal General gastrointestinal: Present: normal bowel sounds, soft - Integumentary Integumentary: multiple areas of eccymosis on extremities different stages - Neurologic Neurologic: Present: CNII-XII intact - Musculoskeletal Musculoskeletal: Present: generalized weakness, strength equal bilaterally - Psychiatric Psychiatric: Present: A&O x's 3, appropriate affect - Labs CBC & Chem 7: 01/30/19 11:46 01/29/19 12:15 Labs: Abnormal Lab Results - Last 24 Hours (Table) 01/29/19 01/29/19 Range/Units 12:15 12:15 RBC 2.97 L (4.30-5.90) m/uL Hgb 8.9 L (13.0-17.5) gm/dL Hct 27.8 L (39.0-53.0) % RDW 17.2 H (11.5-15.5) % Plt Count 14 L* D (150-450) k/uL Lymphocytes # (Manual) 0.71 L (1.0-4.8) k/uL Metamyelocytes # (Man) 0.06 H (0) k/uL Myelocytes # (Manual) 0.06 H (0) k/uL Nucleated RBCs 1 H (0-0) /100 WBC BUN 38 H (9-20) mg/dL Creatinine 1.35 H (0.66-1.25) mg/dL Albumin 3.2 L (3.5-5.0) g/dL Assessment and Plan Plan: Assessment and Plan MDS (myelodysplastic syndrome) - Long-standing issue, present at diagnosis. - Diagnostic and therapeutic circumstances noted in HPI. - The patient is stable from our standpoint, with counts and a safe range. - Continue follow-up as an outpatient, with ongoing transfusion support - Platelet transfusion prior or during procedures and/or platelets less than 10K or if signs of active bleeding Atrial flutter with rapid ventricular response - The patient is status post pacemaker placement. - He tolerated the procedure well without any unusual bleeding. It was discussed with him that ideally someone in the circumstances would be placed on anticoagulation. Given his history he would ideally also be evaluated for catheterization and intervention if required. However due to his MDS and chronic cytopenias is not a candidate for anticoagulation or antiplatelet therapy, the patient should have a platelet count of greater than 50,000 on an ongoing basis. - However with his myelodysplasia , and clinical history, it would not be possible to maintain his platelet count above that level over the long-term. Thus anticoagulation or antiplatelet therapy would not be recommended for him, based on careful evaluation of risk-benefit. The patient's questions were answered in detail. He expressed understanding of the same. Plan: - Long discussion with patient and today regarding cardiac needs com plicated by underlying MDS. - He follows with Dr. Hawk as outpatient and will defer treatment for MDS to Dr. Hawk. He has a follow-up scheduled on 02/19/19 - Will also have weekly or twice a week CBC checks in office after discharge. - Transfuse4 Platlets today to be closer to 50K prior to procedure Defer to the admitting service and other consultants for management of his oth er medical issues
--- NOTE | 2019-01-30 11:47 | P.PN ---
Subjective Progress Note Date: 01/30/19 This is a 73-year-old gentleman who follows regularly with Dr. Pace in the office. He has a known history of coronary artery disease with prior PCI, history also of hypertension, hyperlipidemia, chronic persistent atrial fibrillation, patient also had a recent diagnosis of myelodysplastic syndrome, he had been on Coumadin which was discontinued because of severe thrombocytopenia. His last echo performed in October 2017 revealed a normal left ventricular systolic function. His last Fiona scan was performed in October 2017 which did not show any evidence of reversible ischemia at that time. He presented to the hospital on this occasion with symptoms of severe shortness of breath, mostly exertional in nature which has been going off and on, persistently worsening over the past few weeks. Patient also states that he is heart racing fast and irregular. Lightheadedness as well. EKG on presentation here showed atrial flutter with rapid ventricular response. Chest x-ray showed posterior pleural effusions. He had been initiated on IV Cardizem drip in the emergency room as well as his home dose of beta uri, he continues this morning to be in atrial flutter with a heart rate of 130 to 140. Blood pressure 130/70 with a heart rate 1:30 to 140, 95% on 2 L of oxygen.White blood cell count 7.3, hemoglobin 7.6, platelet count 15 this morning. Sodium 143, potassium 4.7, BUN 25 and creatinine 1.2. Magnesium 1.8. troponin 0.034, 0.036, 0.044. BNP level 3570.TSH level normal at 2.4.at the time of my examination this morning, patient continues to feel awful, in his words, continues to feel short of breath and very weak. We will start the patient on amiodarone 400 mg one tablet daily this morning for more optimal heart rate control. We will also give the patient a dose of IV Lasix and then start him on some oral Lasix. 01/24/2019 Patient seen and examined this morning, feels somewhat short of breath. Heart rate earlier today was in the range of 100-106, later in the morning heart rate went up into the 05/11/1939 range. Through the night last night he was started on IV amiodarone, his IV Cardizem was discontinued this morning. We will increase the dose of metoprolol to 50 mg one tablet by mouth 3 times a day. 01/26/2019 Patient underwent implantation of a permanent pacemaker yesterday by Dr. Nava, the device was interrogated this morning and is functioning appropriately.blood pressure 108/60, heart rate 120, 94% on 2 L of oxygen. 01/29/2019 Patient was seen and examined this morning, heart rate is staying pretty much in the 120 range today. Hemodynamically he is stable. Blood pressure 114/50 with a heart rate of 110 at present, 92% on room air. White blood cell count 6.1, hemoglobin 8.9, platelet count 14. Sodium 144, potassium 3.6, BUN 38, c reatinine 1.3. 01/30/2019 Patient seen and examined this morning, continues to be in atrial flutter with a fairly rapid ventricular response. I did have a lengthy discussion with the patient and his this morning regarding atrial flutter ablation, this will be performed later today by Dr. Nava. Blood pressure 116/60, heart rate 120s, respirations 18. White blood cell count 5.9, hemoglobin 8.9, platelet count 14. Sodium 144, potassium 3.6, BUN 38 and creatinine 1.3. Objective - Vital Signs Vital signs: Vital Signs Temp 98.8 F 01/30/19 08:40 Pulse 110 H 01/30/19 08:40 Resp 18 01/30/19 08:40 BP 117/60 01/30/19 08:40 Pulse Ox 94 L 01/30/19 08:40 Intake & Output 01/29/19 01/30/19 01/30/19 18:59 06:59 18:59 Intake Total 476 480 240 Output Total 750 Balance 476 -270 240 Weight 88.3 kg Intake: Oral 476 180 240 Blood Product 0 300 Platelet Pheresis Acda1 0 300 Unit [id number] Output: Urine 750 Other: Voiding Method Toilet # Voids 2 1 - Exam PHYSICAL EXAMINATION: GENERAL:73-year-old gentleman in no acute distress at the time of my examination HEENT: Head is atraumatic, normocephalic. Pupils equal, round. Sclera anicteric. Conjunctiva are clear. Mucous membranes of the mouth are moist. Neck is supple. There is no elevated jugular venous pressure.no carotid bruit is heard. HEART EXAMINATION: [Heart S1, S2 irregularly irregular a systolic ejection murmu r is heard CHEST EXAMINATION lungs are clear with diminished air entry to bilateral bases site of pacemaker implantation, clean and dry ABDOMEN: [ Soft, nontender. Bowel sounds are heard. No organomegaly noted]. EXTREMITIES:[ 2+ peripheral pulses with no evidence of peripheral edema and no calf tenderness notedPatient does have significant a brownish discoloration to both of his hands from his thrombocytopenia. NEUROLOGIC [patient is awake, alert and oriented X3.] . - Labs CBC & Chem 7: 01/29/19 12:15 01/29/19 12:15 Labs: Abnormal Lab Results - Last 24 Hours (Table) 01/29/19 01/29/19 Range/Units 12:15 12:15 RBC 2.97 L (4.30-5.90) m/uL Hgb 8.9 L (13.0-17.5) gm/dL Hct 27.8 L (39.0-53.0) % RDW 17.2 H (11.5-15.5) % Plt Count 14 L* D (150-450) k/uL Lymphocytes # (Manual) 0.71 L (1.0-4.8) k/uL Metamyelocytes # (Man) 0.06 H (0) k/uL Myelocytes # (Manual) 0.06 H (0) k/uL Nucleated RBCs 1 H (0-0) /100 WBC BUN 38 H (9-20) mg/dL Creatinine 1.35 H (0.66-1.25) mg/dL Albumin 3.2 L (3.5-5.0) g/dL Assessment and Plan Plan: assessment and plan #1 atrial flutter, typical, with rapid ventricular response #2 chronic persistent atrial fibrillation #3 coronary artery disease with prior stentingof the right coronary artery in 2012 #4 hypertension #5 hyperlipidemia #6 nicotine dependence #7 myelodysplastic syndrome, with associated low platelet count which is why the patient is not on anticoagulation #8 status post implantation of a permanent pacemaker Plan Patient continues to be in atrial flutter with heart rate in the 120 range. We will continue with current medications, patient will be scheduled today for an atrial flutter ablation. DNP note has been reviewed, I agree with a documented findings and plan of care. Patient was seen and examined.
[2019-01-30 12:12] LABS: Anisocytosis Slight; HCT 28.8 % (39.0-53.0); Hypochromasia Marked; MCH 29.1 pg (25.0-35.0); MCHC 31.1 g/dL (31.0-37.0); MCV 93.7 fL (80.0-100.0); Mean Platelet Volume 10.4; Poikilocytosis Slight; RBC 3.07 m/uL (4.30-5.90); WBC 7.7 k/uL (3.8-10.6)
[2019-01-30 12:17] LABS: Platelet Count 39 k/uL (150-450)
[2019-01-30 12:48] LABS: Eosinophils # (M) 0.08 k/uL (0-0.7); Large Platelets Present; Lymphocytes # (M) 1.85 k/uL (1.0-4.8); Metamyelocytes # (M) 0.08 k/uL (0); Metamyelocytes % 1 %; Myelocytes # (M) 0.23 k/uL (0); Myelocytes % 3 %; Neutrophils % (M) 60 %; Nucleated Red Blood Cells 0 /100 WBC (0-0); Total Cells Counted 200
[2019-01-30 12:49] LABS: Polychromasia Present
[2019-01-30 13:39] VITALS: BMI 29.5
[2019-01-30] MEDS ORDERED: CLINDAMYCIN 900 MG in DEXTROSE 5% IN WATER 50 ML IVPB ONE ×2 (14:00)
[2019-01-30] MEDS ORDERED: fentaNYL (PF) 50 MCG/ML 2 ML AMP ONE (15:35)
[2019-01-30] MEDS ORDERED: PHENYLEPHRINE-0.9% NACL SYG 1 MG/10 ML SYRINGE ONE (15:35)
[2019-01-30] MEDS ORDERED: PROPOFOL 10 MG/ML 20 ML VIAL IV ONE (15:35)
[2019-01-30] MEDS: SODIUM CHLORIDE 0.9% 1,000 ML IV SCH (15:35)
[2019-01-30] MEDS ORDERED: ATROPINE SULFATE 0.1 MG/ML 10ML SYRINGE ONE (15:35)
[2019-01-30] MEDS ORDERED: MIDAZOLAM 2 MG/2 ML VIAL ONE (15:35)
[2019-01-30] MEDS ORDERED: HEPARIN SODIUM (1,000 UNIT/ML) 1,000 UNIT in SODIUM CHLORIDE 0.9% 1,000 ML IRRIGATION ONE (15:46)
[2019-01-30] MEDS ORDERED: LIDOCAINE 1% INJ 10MG/ML (20 ML MDV) SQ ONE (16:06)
[2019-01-30] MEDS: LIDOCAINE 1% INJ 10MG/ML (20 ML MDV) SQ ONE ×2 (16:06→16:47)
--- NOTE | 2019-01-30 17:03 | P.PCN ---
Preoperative Diagnosis: Procedure: Device interrogation with reprogramming prior to the procedure Cardioversion for atrial fibrillation AV Node Ablation/modification. Device interrogation with reprogramming postprocedure Patient was brought to the EP lab in a fasting state. Written, informed consent was obtained prior to the procedure. Access was obtained, sheath placed in right femoral vein. 1. Preprocedure device interrogation and reprogramming Device interrogation with reprogramming performed. Rate responsiveness was turned off and the pacing rate was reprogrammed to a backup mode prior to ablation. Tachycardia detections turned off. Lead impedance is documented, sensing and pacing thresholds performed prior to the procedure Backup pacing, VVI 40 bpm Patient has a biventricular device with His bundle pacing 2. AV node ablation A Mapping/Ablation catheter was placed and right-sided AV node radiofrequency ablation/modification was performed. Junctional escape rhythm in the 53. No response to IV atropine 4. Device programming postprocedure Post ablation, device reprogramming was performed. Base Pacing rate was programmed to 90 bpm. Patient's device was reprogrammed and the interrogated. His bundle pacing Vascular sheaths were removed at the end of the procedure, hemostasis was assured, the patient was then transferred to recovery room/telemetry in stable condition. Conclusions: Successful ablation of the AV node. Plan: Pacing at 90 bpm for at least 3 weeks. Telemetry monitoring for 24-48 hours. Continue anticoagulation. Patient tolerated the procedure well without any acute complications
[2019-01-30] MEDS ORDERED: ACETAMINOPHEN IV (For NPO) 1,000 MG in EMPTY BAG 1 BAG IVPB ONE (18:00)
[2019-01-30] MEDS: ATORVASTATIN 80 MG TAB PO SCH (20:18)
[2019-01-30] MEDS: HYDROCORTISONE SUPPOSITORY 25 MG SUPP RECTAL SCH (20:20)
--- NOTE | 2019-01-30 22:23 | P.PN ---
Progress Note - Text Progress Note Date: 01/30/19 Interval history: This is a pleasant 73-year-old patient of Dr. Watson Mares who presents with few weeks her shortness of breath. Admitted with atrial flutter with a rapid ventricular rate. Chronic stable medical conditions include coronary artery disease, GERD, hyperlipidemia, essential hypertension primary osteoarthritis and myelodysplastic syndrome. Because of low platelets, and has not been given anticoagulation, with a known history of atrial flutter fibrillation. Also's coronary artery disease with stent. Because of tachybradycardia syndrome patient had a biventricular pacemaker placed on January 25. On January 27 did get a unit of blood. On January 28 given 5 units of platelets. Today-heart rate remains up. Laying in bed. Pending to go down for EP study.. Since the patient's platelets are less than 50 and going for procedure I did talk to RESEARCH SPECIALIST from hematology. Another 5 units of platelets were ordered before the procedure. Review of systems: Was done for constitutional, cardiovascular, GI, pulmonary. relevant finding as above Active Medications Acetaminophen (Tylenol Tab) 650 mg PO Q6HR PRN PRN Reason: Mild Pain Last Admin: 01/28/19 09:10 Dose: 650 mg Documented by: Hydrocodone Bitart/Acetaminophen ([place] 5-325) 1 each PO Q4HR PRN PRN Reason: Pain Last Admin: 01/28/19 12:28 Dose: 1 each Documented by: Atorvastatin Calcium (Lipitor) 80 mg PO HS [facility] Last Admin: 01/30/19 20:18 Dose: 80 mg Documented by: Docusate Sodium (Colace) 100 mg PO DAILY PRN PRN Reason: Constipation Last Admin: 01/28/19 09:10 Dose: 100 mg Documented by: Doxazosin Mesylate (Cardura) 4 mg PO DAILY [facility] Last Admin: 01/30/19 09:06 Dose: 4 mg Documented by: Furosemide (Lasix) 40 mg PO BID@0900,1600 [facility] Last Admin: 01/30/19 18:51 Dose: 40 mg Documented by: Hydrocortisone Acetate (Anusol-Hc) 25 mg RECTAL DAILY [facility] Last Admin: 01/30/19 20:20 Dose: Not Given Documented by: Sodium Chloride (Saline 0.9%) 1,000 mls @ 20 mls/hr IV .Q24H [facility] Last Admin: 01/30/19 15:35 Dose: 300 mls Documented by: Montelukast Sodium (Singulair) 10 mg PO DAILY [facility] Last Admin: 01/30/19 09:06 Dose: 10 mg Documented by: Naloxone HCl (Narcan) 0.2 mg IV Q2M PRN PRN Reason: Opioid Reversal Nitroglycerin (Nitrostat) 0.4 mg SUBLINGUAL Q5M PRN PRN Reason: Chest Pain Last Admin: 01/25/19 09:28 Dose: 0.4 mg Documented by: Sodium Chloride (Saline Flush) 10 ml IV Q12HR [facility] Last Admin: 01/30/19 19:51 Dose: Not Given Documented by: Sodium Chloride (Saline Flush) 12 ml IV Q12HR [facility] Last Admin: 01/30/19 19:51 Dose: Not Given Documented by: Physical examination: VITAL SIGNS: Weight 7.4, 107, 18, 94/65, 95% room air GENERAL: Laying in bed, tired EYES: Pupils equal. Conjunctiva normal. HEENT: External appearance of nose and ears normal, oral cavity grossly normal. NECK: JVD not raised; masses not palpable. HEART: Heart sounds irregular; no edema. LUNGS: Respiratory rate normal; clear to auscultation. ABDOMEN: Soft, nontender, liver spleen not palpable, no masses palpable. PSYCH: Alert and oriented x3; mood and affect anxious CHEST wall: Dressing over the pacemaker site with left arm in a sling INVESTIGATIONS, reviewed in the clinical context: White count 7.7 hemoglobin 9 platelets 39 Previous testing Potassium 3.6 bun 29 and creatinine 1.45 Troponin I 0.036, 0.044, TSH 2.4 2-D echo EF 55-60%, moderate aortic stenosis Assessment: -Persistent atrial flutter fibrillation, uncontrolled, heart rate anywhere from 40s to 140s, with tachybradycardia syndrome patient requiring a biventricular pacemaker. Heart rate still uncontrolled. Today underwent AV pina ablation by Dr. Nava. And postprocedure pacemaker was reprogrammed -Not a candidate for anticoagulant because of thrombocytopenia -Moderate aortic stenosis, non- rheumatic -Troponin leak from atrial flutter fibrillation, not in acute coronary syndrome -Myelodysplastic syndrome, with symptomatic anemia, status post 2 units of blood. Received 5 units of platelet -Coronary artery disease with history of stent -GERD -Essential hypertension -Hyperlipidemia -Primary osteoarthritis Plan: Care was discussed in detail with the patient hardly today. Also discussed with Tara RESEARCH SPECIALIST from hematology. 5 units of platelets were ordered before the procedure.
[2019-01-31 02:43] VITALS: PULSE 90
[2019-01-31 07:46] LABS: Anisocytosis Slight; HCT 28.4 % (39.0-53.0); HGB 8.6 gm/dL (13.0-17.5); Hypochromasia Moderate; MCH 28.1 pg (25.0-35.0); MCHC 30.1 g/dL (31.0-37.0); MCV 93.3 fL (80.0-100.0); Mean Platelet Volume 9.2; Poikilocytosis Slight; RBC 3.04 m/uL (4.30-5.90); RDW 17.3 % (11.5-15.5); WBC 7.5 k/uL (3.8-10.6)
[2019-01-31 07:53] LABS: Platelet Count 53 k/uL (150-450)
[2019-01-31 09:36] VITALS: RESP 18
[2019-01-31] MEDS: DOXAZOSIN 4 MG TAB PO SCH (09:37)
[2019-01-31] MEDS: FUROSEMIDE 40 MG TAB PO SCH (09:37)
[2019-01-31] MEDS: MONTELUKAST 10 MG TAB PO SCH (09:37)
[2019-01-31] MEDS: HYDROCORTISONE SUPPOSITORY 25 MG SUPP RECTAL SCH (09:37)
[2019-01-31] MEDS: SODIUM CHLORIDE 0.9% 1,000 ML IV SCH (09:39)
[2019-01-31 10:03] LABS: Nucleated Red Blood Cells 0 /100 WBC (0-0)
[2019-01-31 10:05] LABS: Band Neutrophils % 1 %; Lymphocytes # (M) 0.75 k/uL (1.0-4.8); Monocytes # (M) 1.05 k/uL (0-1.0); Myelocytes # (M) 0.08 k/uL (0); Myelocytes % 1 %; Neutrophils % (M) 75 %; Total Cells Counted 200
[2019-01-31 10:06] LABS: Mixed Population RBC Present; Ovalocytes Present
[2019-01-31 13:00] VITALS: BP 122/74; TEMP 98.2
--- NOTE | 2019-01-31 15:06 | P.PN ---
Subjective Progress Note Date: 01/31/19 This is a 73-year-old gentleman who follows regularly with Dr. Pace in the office. He has a known history of coronary artery disease with prior PCI, history also of hypertension, hyperlipidemia, chronic persistent atrial fibrillation, patient also had a recent diagnosis of myelodysplastic syndrome, he had been on Coumadin which was discontinued because of severe thrombocytopenia. His last echo performed in October 2017 revealed a normal left ventricular systolic function. His last Fiona scan was performed in October 2017 which did not show any evidence of reversible ischemia at that time. He presented to the hospital on this occasion with symptoms of severe shortness of breath, mostly exertional in nature which has been going off and on, persistently worsening over the past few weeks. Patient also states that he is heart racing fast and irregular. Lightheadedness as well. EKG on presentation here showed atrial flutter with rapid ventricular response. Chest x-ray showed posterior pleural effusions. He had been initiated on IV Cardizem drip in the emergency room as well as his home dose of beta uri, he continues this morning to be in atrial flutter with a heart rate of 130 to 140. Blood pressure 130/70 with a heart rate 1:30 to 140, 95% on 2 L of oxygen.White blood cell count 7.3, hemoglobin 7.6, platelet count 15 this morning. Sodium 143, potassium 4.7, BUN 25 and creatinine 1.2. Magnesium 1.8. troponin 0.034, 0.036, 0.044. BNP level 3570.TSH level normal at 2.4.at the time of my examination this morning, patient continues to feel awful, in his words, continues to feel short of breath and very weak. We will start the patient on amiodarone 400 mg one tablet daily this morning for more optimal heart rate control. We will also give the patient a dose of IV Lasix and then start him on some oral Lasix. 01/24/2019 Patient seen and examined this morning, feels somewhat short of breath. Heart rate earlier today was in the range of 100-106, later in the morning heart rate went up into the 05/11/1939 range. Through the night last night he was started on IV amiodarone, his IV Cardizem was discontinued this morning. We will increase the dose of metoprolol to 50 mg one tablet by mouth 3 times a day. 01/26/2019 Patient underwent implantation of a permanent pacemaker yesterday by Dr. Nava, the device was interrogated this morning and is functioning appropriately.blood pressure 108/60, heart rate 120, 94% on 2 L of oxygen. 01/29/2019 Patient was seen and examined this morning, heart rate is staying pretty much in the 120 range today. Hemodynamically he is stable. Blood pressure 114/50 with a heart rate of 110 at present, 92% on room air. White blood cell count 6.1, hemoglobin 8.9, platelet count 14. Sodium 144, potassium 3.6, BUN 38, c reatinine 1.3. 01/30/2019 Patient seen and examined this morning, continues to be in atrial flutter with a fairly rapid ventricular response. I did have a lengthy discussion with the patient and his this morning regarding atrial flutter ablation, this will be performed later today by Dr. Nava. Blood pressure 116/60, heart rate 120s, respirations 18. White blood cell count 5.9, hemoglobin 8.9, platelet count 14. Sodium 144, potassium 3.6, BUN 38 and creatinine 1.3. 01/31/2019 Patient underwent AV node ablation yesterday, overall he does feel well today. Let pressure 122/70 with a heart rate of 90, 95% on room air. White blood cell count 7.5, hemoglobin 8.6, platelet count 53. Telemetry shows a paced rhythm. Objective - Vital Signs Vital signs: Vital Signs Temp 98.2 F 01/31/19 12:00 Pulse 90 01/31/19 12:00 Resp 18 01/31/19 12:00 BP 122/74 01/31/19 12:00 Pulse Ox 95 01/31/19 12:00 Intake & Output 01/30/19 01/31/19 01/31/19 18:59 06:59 18:59 Intake Total 1142 1099 854 Output Total 600 Balance 1142 499 854 Weight 88.3 kg 88 kg Intake: IV 542 Intake, IV Titration 140 Amount Sodium Chloride 0.9% 1, 140 000 ml @ 20 mls/hr IV . Q24H [facility] Rx#:[id number] Oral 600 600 854 Blood Product 359 Platelet Pheresis Acda 359 Unit [id number] Output: Urine 600 Other: Voiding Method Urinal # Voids 2 1 - Exam PHYSICAL EXAMINATION: GENERAL:73-year-old gentleman in no acute distress at the time of my examination HEENT: Head is atraumatic, normocephalic. Pupils equal, round. Sclera anicteric. Conjunctiva are clear. Mucous membranes of the mouth are moist. Neck is supple. There is no elevated jugular venous pressure.no carotid bruit is heard. HEART EXAMINATION: [Heart S1, S2 irregularly irregular a systolic ejection murmur is heard CHEST EXAMINATION lungs are clear with diminished air entry to bilateral bases s ite of pacemaker implantation, clean and dry ABDOMEN: [ Soft, nontender. Bowel sounds are heard. No organomegaly noted]. EXTREMITIES:[ 2+ peripheral pulses with no evidence of peripheral edema and no calf tenderness notedPatient does have significant a brownish discoloration to both of his hands from his thrombocytopenia. Right groin is soft, sutures in place. NEUROLOGIC [patient is awake, alert and oriented X3.] . - Labs CBC & Chem 7: 01/31/19 07:24 01/29/19 12:15 Labs: Abnormal Lab Results - Last 24 Hours (Table) 01/31/19 Range/Units 07:24 RBC 3.04 L (4.30-5.90) m/uL Hgb 8.6 L (13.0-17.5) gm/dL Hct 28.4 L (39.0-53.0) % MCHC 30.1 L (31.0-37.0) g/dL RDW 17.3 H (11.5-15.5) % Plt Count 53 L (150-450) k/uL Lymphocytes # (Manual) 0.75 L (1.0-4.8) k/uL Monocytes # (Manual) 1.05 H (0-1.0) k/uL Myelocytes # (Manual) 0.08 H (0) k/uL Assessment and Plan Plan: assessment and plan #1 atrial flutter, typical, with rapid ventricular response #2 chronic persistent atrial fibrillation #3 coronary artery disease with prior stentingof the right coronary artery in 2012 #4 hypertension #5 hyperlipidemia #6 nicotine dependence #7 myelodysplastic syndrome, with associated low platelet count which is why the patient is not on anticoagulation #8 status post implantation of a permanent pacemaker #9 status post ablation Plan We will remove the suture from the right groin, have the patient up ambulating, if he is asymptomatic he may be able to be discharged home today from our perspective. Follow-up appointment in the office post discharge. DNP note has been reviewed, I agree with a documented findings and plan of care. Patient was seen and examined.
--- NOTE | 2019-01-31 23:49 | P.DS ---
Providers Date of admission: 01/23/19 13:34 Expected date of discharge: 01/31/19 Attending physician: Jered Stack Consults: 01/22/19 16:04 Consult Physician Urgent Consulting Provider: [facility] Consult Reason/Comments: Atrial flutter with rapid ventricular response Do you want consulting provider notified?: Yes 01/22/19 16:30 Consult Physician Urgent Consulting Provider: Myrna Hawk Consult Reason/Comments: Thrombocytopenia, anemia Do you want consulting provider notified?: Yes Primary care physician: [facility] Course: Hospital course: This is a pleasant 73-year-old patient of Dr. Watson Mares who presents with few weeks her shortness of breath. Admitted with atrial flutter with a rapid ventricular rate. Chronic stable medical conditions include coronary artery disease, GERD, hyperlipidemia, essential hypertension primary osteoarthritis and myelodysplastic syndrome. Because of low platelets, and has not been given anticoagulation, with a known history of atrial flutter fibrillation. Also's coronary artery disease with stent. Because of tachybradycardia syndrome patient had a biventricular pacemaker placed on January 25. On January 27 did get a unit of blood. On January 28 given 5 units of platelets. as the heart rate remained to stay up AV pina ablation was carried out patient remained asymptomatic after that.rate well- controlled.has a paced rhythm. o consultation: Dr. Shiva Nava from electrophysiology Dr. Patel from hematology Procedures: Biventricular pacemaker placed on January 25 AV pina ablation done on January 30 Physical examination: VITAL SIGNS:98.2, 90, 18, 122/74, 95% on room air GENERAL: sitting upon a chair, comfortable EYES: Pupils equal. Conjunctiva normal. HEENT: External appearance of nose and ears normal, oral cavity grossly normal. NECK: JVD not raised; masses not palpable. HEART: Heart sounds irregular; no edema. LUNGS: Respiratory rate normal; clear to auscultation. ABDOMEN: Soft, nontender, liver spleen not palpable, no masses palpable. PSYCH: Alert and oriented x3; mood and affect anxious CHEST wall: Dressing over the pacemaker site with left arm in a sling INVESTIGATIONS, reviewed in the clinical context: white count 7.5 hemoglobin 8.6 platelets 53 Previous testing Potassium 3.6 bun 29 and creatinine 1.45 Troponin I 0.036, 0.044, TSH 2.4 2-D echo EF 55-60%, moderate aortic stenosis discharge diagnosis: -Persistent atrial flutter fibrillation, uncontrolled, heart rate anywhere from 40s to 140s, with tachybradycardia syndrome patient requiring a biventricular pacemaker. Heart rate still uncontrolled. followed by AV pina ablation by Dr. Nava. And postprocedure pacemaker was reprogrammed -Not a candidate for anticoagulant because of thrombocytopenia -Moderate aortic stenosis, non- rheumatic -Troponin leak from atrial flutter fibrillation, not in acute coronary syndrome -Myelodysplastic syndrome, with symptomatic anemia, symptomatic severe thrombocytopenia,status post 2 units of blood. Received 5 units of platelet -Coronary artery disease with history of stent -GERD -Essential hypertension -Hyperlipidemia -Primary osteoarthritis disposition: Home Patient Condition at Discharge: Stable Plan - Discharge Summary Discharge Rx Participant: Yes New Discharge Prescriptions: New Hydrocortisone Suppository [Anusol-Hc] 25 mg RECTAL DAILY #1 supp Furosemide [Lasix] 40 mg PO DAILY #30 tab Acetaminophen Tab [Tylenol] 650 mg PO Q6HR PRN tab PRN Reason: Mild Pain Continue Terazosin [Hytrin] 5 mg PO DAILY Atorvastatin [Lipitor] 80 mg PO HS Montelukast [Singulair] 10 mg PO DAILY Multivitamins, Thera [Multivitamin (formulary)] 1 tab PO DAILY Discontinued Metoprolol Tartrate [Lopressor] 12.5 mg PO BID Enalapril [Vasotec] 20 mg PO DAILY Fexofenadine HCl [Lizzy Allergy] 180 mg PO DAILY Discharge Medication List Atorvastatin [Lipitor] 80 mg PO HS 03/28/14 [History] Terazosin [Hytrin] 5 mg PO DAILY 03/28/14 [History] Montelukast [Singulair] 10 mg PO DAILY 12/15/17 [History] Multivitamins, Thera [Multivitamin (formulary)] 1 tab PO DAILY 01/22/19 [History] Acetaminophen Tab [Tylenol] 650 mg PO Q6HR PRN tab 01/31/19 [Rx] Furosemide [Lasix] 40 mg PO DAILY #30 tab 01/31/19 [Rx] Hydrocortisone Suppository [Anusol-Hc] 25 mg RECTAL DAILY #1 supp 01/31/19 [Rx] Follow up Appointment(s)/Referral(s): Jorge Hart MD [STAFF PHYSICIAN] - 02/06/19 2:15 pm (Device clinic and follow up with Dr. Hart) Watson Fuentes MD [Primary Care Provider] - 3 Days Myrna Hawk MD [STAFF PHYSICIAN] - 02/19/19 2:15 pm Patient Instructions/Handouts: Atrial Flutter (DC), Anemia (DC), Pacemaker (DC) Discharge Disposition: HOME SELF-CARE
== END 2019-01-31 16:55 | disposition home or self-care (01) | DRG 242 ==
LOC: EC 13:50 → INTOOBSV 16:04 → 3SCARD 16:04 → OBSVTOIN 01-23 13:34
PROVIDERS: ADMIT Hospitalist; ATTEND Hospitalist
PROC: 02H63JZ Insertion of Pacemaker Lead into Right Atrium, Percutaneous Approach (ICD-10-PCS; principal; 2019-01-26)
PROC: 02HK3JZ Insertion of Pacemaker Lead into Right Ventricle, Percutaneous Approach (ICD-10-PCS; principal; 2019-01-26)
PROC: 0JH607Z Insertion of Cardiac Resynchronization Pacemaker Pulse Generator into Chest Subcutaneous Tissue and Fascia, Open Approach (ICD-10-PCS; principal; 2019-01-26)
PROC: 02583ZZ Destruction of Conduction Mechanism, Percutaneous Approach (ICD-10-PCS; 2019-01-30)
PROC: 4B02XSZ Measurement of Cardiac Pacemaker, External Approach (ICD-10-PCS; 2019-01-30)
PROC: 30233R1 Transfusion of Nonautologous Platelets into Peripheral Vein, Percutaneous Approach (ICD-10-PCS; 2019-01-30)
PROC: 30233N1 Transfusion of Nonautologous Red Blood Cells into Peripheral Vein, Percutaneous Approach (ICD-10-PCS; 2019-01-30)
DX: I48.3 Typical atrial flutter (principal); I50.31 Acute diastolic (congestive) heart failure; N17.9 Acute kidney failure, unspecified; I48.19 Other persistent atrial fibrillation; D46.9 Myelodysplastic syndrome, unspecified; I11.0 Hypertensive heart disease with heart failure; K21.9 Gastro-esophageal reflux disease without esophagitis; E78.5 Hyperlipidemia, unspecified; J45.909 Unspecified asthma, uncomplicated; I25.10 Atherosclerotic heart disease of native coronary artery without angina pectoris; F17.200 Nicotine dependence, unspecified, uncomplicated; M19.91 Primary osteoarthritis, unspecified site; D69.6 Thrombocytopenia, unspecified; I35.0 Nonrheumatic aortic (valve) stenosis; I49.5 Sick sinus syndrome; Z90.49 Acquired absence of other specified parts of digestive tract; Z95.5 Presence of coronary angioplasty implant and graft; Z98.890 Other specified postprocedural states; Z80.51 Family history of malignant neoplasm of kidney; Z79.899 Other long term (current) drug therapy; Z88.0 Allergy status to penicillin; Z88.2 Allergy status to sulfonamides
CPT/HCPCS: 33208; 33225; 36415; 71046; 80048; 80053; 80061; 83735; 83880; 84443; 84484; 85025; 85027; 85610; 85730; 86850; 86900; 86901; 86920; 93005; 93306; 93650; 96361; 96365; 96375; 99291

== ENCOUNTER → 2019-04-24 | Outpatient (CLI) | payer MEDICARE, BC ==
[~2019-04-24] MED LIST changes: +FUROSEMIDE 10 MG/ML 2 ML VIAL IV NR; -LACTATED RINGERS 1,000 ML IV SCH; -LIDOCAINE 1% 20 ML VIAL (10MG/ML) FOR IV START INTRADERMA PRN; +SODIUM CHLORIDE 0.9% 500 ML 500 ML in EMPTY BAG 1 BAG IV PRN
[2019-04-24 12:21] VITALS: RESP 16
[2019-04-24 12:36] VITALS: BP 116/66; PULSE 62; TEMP 98.6
--- NOTE | 2019-04-24 14:09 | XR ---
EXAMINATION TYPE: XR chest 2V DATE OF EXAM: 04/24/2019 COMPARISON: 01/26/19 HISTORY: Shortness of breath TECHNIQUE: Frontal and lateral views of the chest are obtained. FINDINGS: Scattered senescent parenchymal changes noted. Hyperinflation compatible with COPD. Pulmonary venous congestion noted. Left basilar infiltrate and/or atelectasis and small effusions not ed bilaterally left greater than right. Heart size is stable. Mediastinal structures are stable and grossly unremarkable. No evidence for hilar prominence. Degenerative changes dorsal spine. IMPRESSION: 1. Pulmonary venous congestion noted. Left basilar infiltrate and/or atelectasis and small effusions noted bilaterally left greater than right.
== END | disposition home or self-care (01) ==
LOC: PROCWHC3 07:00
PROVIDERS: ATTEND Internal Medicine Hematology & Oncology
DX: D46.9 Myelodysplastic syndrome, unspecified (principal); I25.10 Atherosclerotic heart disease of native coronary artery without angina pectoris; I10 Essential (primary) hypertension; N40.0 Benign prostatic hyperplasia without lower urinary tract symptoms; R06.89 Other abnormalities of breathing
CPT/HCPCS: 86900; 86901; 86850; 86920; 71046; 96375; 36430; P9016; P9035; J1940

== ENCOUNTER → 2019-09-05 | Outpatient (CLI) | payer MEDICARE, BC ==
[2019-09-05 11:38] LABS: Calcium 8.9 mg/dL (8.4-10.2)
[2019-09-05 11:41] LABS: Anisocytosis Slight; HCT 23.1 % (39.0-53.0); HGB 7.3 gm/dL (13.0-17.5); Hypochromasia Slight; MCH 29.7 pg (25.0-35.0); MCHC 31.7 g/dL (31.0-37.0); MCV 93.4 fL (80.0-100.0); Mean Platelet Volume 14.2; RBC 2.48 m/uL (4.30-5.90); RDW 17.9 % (11.5-15.5)
[2019-09-05 11:44] LABS: Potassium 4.5 mmol/L (3.5-5.1)
[2019-09-05 11:46] LABS: Platelet Count 20 k/uL (150-450)
[2019-09-05 12:53] LABS: Band Neutrophils % 6 %; Metamyelocytes % 2 %; Myelocytes % 4 %; Neutrophils % (M) 41 %
[2019-09-05 12:56] LABS: Blast Cells # (M) 0.09 k/uL (0); Nucleated Red Blood Cells 3 /100 WBC (0-0); Total Cells Counted 200
[2019-09-05 12:57] LABS: Lymphocytes # (M) 2.15 k/uL (1.0-4.8); Metamyelocytes # (M) 0.17 k/uL (0); Monocytes # (M) 1.98 k/uL (0-1.0); Myelocytes # (M) 0.34 k/uL (0); WBC 8.6 k/uL (3.8-10.6)
[2019-09-05 13:00] LABS: Large Platelets Present; Polychromasia Present
[2019-09-05 13:01] LABS: Poikilocytosis (M) Present
--- NOTE | 2019-09-05 13:39 | CT ---
EXAMINATION TYPE: CT abdomen pelvis wo/w con DATE OF EXAM: 09/05/2019 COMPARISON: 09/05/2018 HISTORY: RLQ pain with urination changes CT DLP: 1914.3 mGycm CONTRAST: CT scan of the abdomen and pelvis is performed with Oral Contrast and without and with IV Contrast, p atient injected with 100 mL of Isovue 300. FINDINGS: LUNG BASES-: No visible nodule. No infiltrate. LIVER/GB: No calcified gallstones. No space occupying hepatic lesion. Biliary tree is of normal ca liber. PANCREAS: No inflammation. No distinct mass. SPLEEN: No splenic enlargement. No lesion seen. ADRENALS: No nodule. No thickening. KIDNEYS/BLADDER: Mild fullness right sided renal collecting system without ximena hydronephrosis. Left -sided renal collecting system is of normal caliber. No nephrolithiasis. No distinct solid renal mas s. Simple cyst upper pole right kidney. Multiple urinary bladder calculi are identified. BOWEL: Normal appendix. Normal bowel caliber. No inflammation. Severe sigmoid diverticulosis withou t diverticulitis. GENITAL ORGANS: No gross abnormality. LYMPH NODES: No greater than 1cm abdominal or pelvic lymph nodes are appreciated. AORTA: No significant abnormality. OSSEOUS STRUCTURES: No significant abnormality is seen. OTHER: No significant additional abnormality is seen. IMPRESSION: 1. Findings may reflect recently passed right renal calculus. As noted there is mild fullness of the right renal collecting system and multiple calculi within the lumen of the urinary bladder.
== END | disposition home or self-care (01) ==
LOC: RADCTMAIN 10:42
PROVIDERS: ATTEND Internal Medicine
DX: N21.0 Calculus in bladder (principal); R10.31 Right lower quadrant pain
CPT/HCPCS: 80048; 85025; 74178; 36415; Q9967

== ENCOUNTER 2019-10-30 05:49 | Day surgery (SDC) | payer MEDICARE, BC ==
[2019-10-25 15:42] VITALS: BMI 27.6
[~2019-10-30 05:49] MED LIST changes: -FUROSEMIDE 10 MG/ML 2 ML VIAL IV NR; +LACTATED RINGERS 1,000 ML IV SCH; +LIDOCAINE 1% (10MG/ML) FOR IV START INTRADERMA PRN; -SODIUM CHLORIDE 0.9% 500 ML 500 ML in EMPTY BAG 1 BAG IV PRN
[2019-10-30 06:38] VITALS: RESP 16; TEMP 97
[2019-10-30] MEDS ORDERED: PROPOFOL 10 MG/ML 20 ML VIAL IV ONE (07:03)
[2019-10-30 07:37] VITALS: BP 100/59; PULSE 64
[2019-10-30 08:01] LABS: Anisocytosis Moderate; HCT 20.2 % (39.0-53.0); Hypochromasia Slight; MCH 32.4 pg (25.0-35.0); MCHC 33.2 g/dL (31.0-37.0); MCV 97.7 fL (80.0-100.0); Macrocytosis Slight; Mean Platelet Volume 19.1; RBC 2.07 m/uL (4.30-5.90); RDW 22.5 % (11.5-15.5); Reticulocyte % 6.3 % (0.5-2.0)
[2019-10-30 08:05] LABS: HGB 6.7 gm/dL (13.0-17.5)
[2019-10-30 09:20] LABS: Band Neutrophils % 7 %; Metamyelocytes % 2 %; Myelocytes % 10 %; Neutrophils % (M) 43 %; Nucleated Red Blood Cells 18 /100 WBC (0-0); Promyelocytes % 9 %; Total Cells Counted 200
[2019-10-30 09:21] LABS: Blast Cells # (M) 8.12 k/uL (0); Lymphocytes # (M) 1.85 k/uL (1.0-4.8); Metamyelocytes # (M) 0.74 k/uL (0); Monocytes # (M) 1.48 k/uL (0-1.0); Myelocytes # (M) 3.69 k/uL (0); Poikilocytosis (M) Present; Polychromasia Present; Promyelocytes # (M) 3.32 k/uL (0); WBC 36.9 k/uL (3.8-10.6)
[2019-10-30 09:22] LABS: Mixed Population RBC Present
[2019-10-30 09:23] LABS: RBC Fragments Present
[2019-10-30 09:26] LABS: Platelet Count 22 k/uL (150-450)
--- NOTE | 2019-10-30 10:13 | PCN ---
PROCEDURE NOTE PROCEDURE: Bone marrow aspirate and biopsy. INDICATION: Known to have myelodysplastic syndrome. Rule out evolution to acute leukemia. DESCRIPTION OF PROCEDURE: After obtaining the consent from the patient, the procedure was performed in the endoscopy suite and anesthesia performed by anesthesia team. The patient was put in the left lateral decubital position. The right posterior iliac crest was localized. Skin was prepped with ChloraPrep, all sterile procedures were followed. 2 mL of 2% Xylocaine was used for local anesthetic. Monoject needle was inserted. However, it was a dry tap. Two core biopsies were obtained. Each about 2 cm in size. Pressure applied afterwards. There was negligible blood loss. The patient tolerated the procedure very well without any immediate complications. MMODL / IJN: [id number] /
== END 2019-10-30 08:40 | disposition home or self-care (01) ==
LOC: OR 05:49
PROVIDERS: ATTEND Internal Medicine Hematology & Oncology
DX: D46.9 Myelodysplastic syndrome, unspecified (principal); R89.7 Abnormal histological findings in specimens from other organs, systems and tissues; I25.10 Atherosclerotic heart disease of native coronary artery without angina pectoris; I10 Essential (primary) hypertension; N40.0 Benign prostatic hyperplasia without lower urinary tract symptoms; I48.91 Unspecified atrial fibrillation; D69.6 Thrombocytopenia, unspecified; E78.5 Hyperlipidemia, unspecified; K08.89 Other specified disorders of teeth and supporting structures; M19.90 Unspecified osteoarthritis, unspecified site; K21.9 Gastro-esophageal reflux disease without esophagitis; Z88.0 Allergy status to penicillin; Z88.2 Allergy status to sulfonamides; Z79.899 Other long term (current) drug therapy; Z90.49 Acquired absence of other specified parts of digestive tract; Z98.890 Other specified postprocedural states; Z87.19 Personal history of other diseases of the digestive system; Z95.0 Presence of cardiac pacemaker; Z86.19 Personal history of other infectious and parasitic diseases; Z87.891 Personal history of nicotine dependence; Z80.51 Family history of malignant neoplasm of kidney
CPT/HCPCS: 85025; 85045; 38222; J2704

== ENCOUNTER 2019-11-08 01:08 | Inpatient (IN) | payer MEDICARE, BC ==
[2019-11-08] MEDS ORDERED: ACETAMINOPHEN TAB 500 MG TAB PO STA (01:12)
--- NOTE | 2019-11-08 01:18 | ED ---
Fever HPI - General Chief Complaint: Shortness of Breath Stated Complaint: Fever, SOB Time Seen by Provider: 11/08/19 01:12 Source: patient, EMS, RN notes reviewed, old records reviewed Mode of arrival: EMS Limitations: no limitations - History of Present Illness Initial Comments: This is a 74 show male presenting from assaults by EMS for evaluation of mainly weakness not feeling well, fever and cough. Patient does suffer from likely diagnosis of leukemia but no formal diagnosis. Patient has had multiple blood transfusions never had issues with fever most recent 2 days ago. Patient denying any chest pain nausea vomiting or diarrhea. No rashes. No significant current shortness of breath MD Complaint: fever, weakness -: hour(s) Temperature Source: subjective Context: sick contacts, on chemotherapy Associated Symptoms: rigors, myalgias, cough, shortness of breath Treatments Prior to Arrival: none - Related Data Home Medications Medication Instructions Recorded Confirmed Atorvastatin [Lipitor] 20 mg PO HS 03/28/14 10/31/19 Terazosin [Hytrin] 5 mg PO DAILY 03/28/14 10/31/19 Allergies Allergy/AdvReac Type Severity Reaction Status Date / Time Penicillins Allergy Rash/Hives Verified 11/08/19 02:18 Sulfa (Sulfonamide Allergy Rash/Hives Verified 11/08/19 02:18 Antibiotics) Review of Systems ROS Statement: Those systems with pertinent positive or pertinent negative responses have been documented in the HPI. ROS Other: All systems not noted in ROS Statement are negative. Past Medical History Past Medical History: Atrial Fibrillation, Atrial Flutter, Blood Disorder, Coronary Artery Disease (CAD), Cancer, GERD/Reflux, Hyperlipidemia, Hypertension, Osteoarthritis (OA) Additional Past Medical History / Comment(s): CHRONIC LOW PLATELETS-MDS History of Any Multi-Drug Resistant Organisms: None Reported Past Surgical History: Appendectomy, Heart Catheterization With Stent Additional Past Surgical History / Comment(s): pilonidal cyst surg. COLONOSCOPY. BONE MARROW BX-12/28. stents x 2012 Past Anesthesia/Blood Transfusion Reactions: No Reported Reaction Date of Last Stent Placement:: September 2012 Past Psychological History: No Psychological Hx Reported Smoking Status: Former smoker Past Alcohol Use History: None Reported Past Drug Use History: None Reported - Past Family History Mother Family Medical History: No Reported History Additional Family Medical History / Comment(s): at age 97 Father Family Medical History: Cancer Additional Family Medical History / Comment(s): kidney cancer-drowned at age 77 General Exam Limitations: no limitations General appearance: alert, in no apparent distress Head exam: Present: atraumatic, normocephalic, normal inspection Eye exam: Present: normal appearance, PERRL, EOMI. Absent: scleral icterus, conjunctival injection, periorbital swelling ENT exam: Present: normal exam, mucous membranes moist Neck exam: Present: normal inspection. Absent: tenderness, meningismus, lymphadenopathy Respiratory exam: Present: normal lung sounds bilaterally. Absent: respiratory distress, wheezes, rales, rhonchi, stridor Cardiovascular Exam: Present: regular rate, normal rhythm, normal heart sounds. Absent: systolic murmur, diastolic murmur, rubs, gallop, clicks GI/Abdominal exam: Present: soft, normal bowel sounds. Absent: distended, tenderness, guarding, rebound, rigid Extremities exam: Present: normal inspection, full ROM, normal capillary refill. Absent: tenderness, pedal edema, joint swelling, calf tenderness Back exam: Present: normal inspection Neurological exam: Present: alert, oriented X3, CN II-XII intact Psychiatric exam: Present: normal affect, normal mood Skin exam: Present: warm, dry, intact, normal color. Absent: rash Course Vital Signs 11/08/19 11/08/19 11/08/19 01:09 01:41 02:19 Temperature 102.5 F H 100.0 F H Pulse Rate 90 Respiratory 18 16 Rate Blood Pressure 142/73 O2 Sat by Pulse 94 L Oximetry - Reevaluation(s) Reevaluation #1: 11/08/19 02:56 Medical records reviewed Reevaluation #2: 11/08/19 02:56 Patient still feeling weak fevers improved - Consultations Consultation #1: spoke w Dr Sreekanth fong for admission Medical Decision Making - Medical Decision Making 74 male to ER for evaluation of fever and weakness. No significant source of fevers found. Possible medication transfusion reaction, [place] IV antibio tics and continued monitoring, rule out covert - Lab Data Result diagrams: 11/08/19 01:29 11/08/19 01:29 Lab Results 11/08/19 11/08/19 11/08/19 Range/Units 01:29 01:29 01:29 WBC 79.1 H* (3.8-10.6) k/uL RBC 2.34 L (4.30-5.90) m/uL Hgb 7.3 L (13.0-17.5) gm/dL Hct 22.3 L (39.0-53.0) % MCV 95.2 (80.0-100.0) fL MCH 31.0 (25.0-35.0) pg MCHC 32.6 (31.0-37.0) g/dL RDW 21.2 H (11.5-15.5) % Plt Count 30 L (150-450) k/uL Neutrophils % (Manual) 30 % Band Neutrophils % 5 % Lymphocytes % (Manual) 12 % Monocytes % (Manual) 7 % Metamyelocytes % 7 % Myelocytes % 6 % Blast Cells % 35 H* % Neutrophils # (Manual) 27.60 H (1.3-7.7) k/uL Lymphocytes # (Manual) 9.49 H (1.0-4.8) k/uL Monocytes # (Manual) 5.54 H (0-1.0) k/uL Metamyelocytes # (Man) 5.54 H (0) k/uL Myelocytes # (Manual) 4.75 H (0) k/uL Blast Cells # (Man) 27.69 H (0) k/uL Nucleated RBCs 17 H (0-0) /100 WBC Manual Slide Review Performed Polychromasia Present Hypochromasia Slight Poikilocytosis (manual Present Anisocytosis Moderate Macrocytosis Slight PT 12.5 H (9.0-12.0) sec INR 1.2 H (<1.2) APTT 26.0 (22.0-30.0) sec Sodium 139 (137-145) mmol/L Potassium 3.2 L (3.5-5.1) mmol/L Chloride 109 H (98-107) mmol/L Carbon Dioxide 23 (22-30) mmol/L Anion Gap 7 mmol/L BUN 22 H (9-20) mg/dL Creatinine 1.62 H (0.66-1.25) mg/dL Est GFR (CKD-EPI)AfAm 47 (>60 ml/min/1.73 sqM) Est GFR (CKD-EPI)NonAf 41 (>60 ml/min/1.73 sqM) Glucose 99 (74-99) mg/dL Plasma Lactic Acid Yemi (0.7-2.0) mmol/L Calcium 8.1 L (8.4-10.2) mg/dL Magnesium 2.1 (1.6-2.3) mg/dL Total Bilirubin 2.0 H (0.2-1.3) mg/dL AST 84 H (17-59) U/L ALT 20 (4-49) U/L Alkaline Phosphatase 156 H (38-126) U/L Lactate Dehydrogenase 3736 H (313-618) U/L C-Reactive Protein 59.8 H (<10.0) mg/L Total Protein 6.8 (6.3-8.2) g/dL Albumin 3.1 L (3.5-5.0) g/dL 11/08/19 Range/Units 01:29 WBC (3.8-10.6) k/uL RBC (4.30-5.90) m/uL Hgb (13.0-17.5) gm/dL Hct (39.0-53.0) % MCV (80.0-100.0) fL MCH (25.0-35.0) pg MCHC (31.0-37.0) g/dL RDW (11.5-15.5) % Plt Count (150-450) k/uL Neutrophils % (Manual) % Band Neutrophils % % Lymphocytes % (Manual) % Monocytes % (Manual) % Metamyelocytes % % Myelocytes % % Blast Cells % % Neutrophils # (Manual) (1.3-7.7) k/uL Lymphocytes # (Manual) (1.0-4.8) k/uL Monocytes # (Manual) (0-1.0) k/uL Metamyelocytes # (Man) (0) k/uL Myelocytes # (Manual) (0) k/uL Blast Cells # (Man) (0) k/uL Nucleated RBCs (0-0) /100 WBC Manual Slide Review Polychromasia Hypochromasia Poikilocytosis (manual Anisocytosis Macrocytosis PT (9.0-12.0) sec INR (<1.2) APTT (22.0-30.0) sec Sodium (137-145) mmol/L Potassium (3.5-5.1) mmol/L Chloride (98-107) mmol/L Carbon Dioxide (22-30) mmol/L Anion Gap mmol/L BUN (9-20) mg/dL Creatinine (0.66-1.25) mg/dL Est GFR (CKD-EPI)AfAm (>60 ml/min/1.73 sqM) Est GFR (CKD-EPI)NonAf (>60 ml/min/1.73 sqM) Glucose (74-99) mg/dL Plasma Lactic Acid Yemi 1.3 (0.7-2.0) mmol/L Calcium (8.4-10.2) mg/dL Magnesium (1.6-2.3) mg/dL Total Bilirubin (0.2-1.3) mg/dL AST (17-59) U/L ALT (4-49) U/L Alkaline Phosphatase (38-126) U/L Lactate Dehydrogenase (313-618) U/L C-Reactive Protein (<10.0) mg/L Total Protein (6.3-8.2) g/dL Albumin (3.5-5.0) g/dL - EKG Data -: EKG Interpreted by Me (EKG shows paced 71 QRS 88 Qtc 421) - Radiology Data Radiology results: report reviewed (chest x-rays negative for acute disease), image reviewed Disposition Clinical Impression: Fever, MDS (myelodysplastic syndrome), Anemia, Transfusion reaction, Weakness Narrative: ro COVID Disposition: ADMITTED IP TO THIS HOSP Condition: Serious Is patient prescribed a controlled substance at d/c from ED?: No Referrals: Watson Fuentes MD [Primary Care Provider] - 1-2 days
[2019-11-08 01:42] LABS: Anisocytosis Moderate; HCT 22.3 % (39.0-53.0); HGB 7.3 gm/dL (13.0-17.5); Hypochromasia Slight; MCHC 32.6 g/dL (31.0-37.0); MCV 95.2 fL (80.0-100.0); Macrocytosis Slight; RBC 2.34 m/uL (4.30-5.90); RDW 21.2 % (11.5-15.5)
--- NOTE | 2019-11-08 01:43 | XR ---
EXAMINATION TYPE: XR chest 1V portable DATE OF EXAM: 11/08/2019 COMPARISON: 04/24/2019 HISTORY: Pneumonia. Chest pain TECHNIQUE: FINDINGS: Heart appears enlarged. There is some coarsening of interstitial markings. There is slight blunting of the costophrenic angles. There is left axillary pacemaker. There is mild congestion. IMPRESSION: There is probably mild heart failure slightly increased compared to old exam. There is le ft and right pleural effusion and improved compared to old exam.
[2019-11-08 01:50] LABS: INR 1.2 (<1.2); Prothrombin Time 12.5 sec (9.0-12.0)
[2019-11-08 01:55] LABS: Albumin 3.1 g/dL (3.5-5.0); C Reactive Protein 59.8 mg/L (<10.0); Calcium 8.1 mg/dL (8.4-10.2); Magnesium 2.1 mg/dL (1.6-2.3); Potassium 3.2 mmol/L (3.5-5.1); Total Protein 6.8 g/dL (6.3-8.2)
[2019-11-08 02:17] LABS: Band Neutrophils % 5 %; Blast Cells # (M) 27.69 k/uL (0); Lymphocytes # (M) 9.49 k/uL (1.0-4.8); Metamyelocytes # (M) 5.54 k/uL (0); Metamyelocytes % 7 %; Monocytes # (M) 5.54 k/uL (0-1.0); Myelocytes # (M) 4.75 k/uL (0); Myelocytes % 6 %; Neutrophils % (M) 30 %; Nucleated Red Blood Cells 17 /100 WBC (0-0); Total Cells Counted 200; WBC 79.1 k/uL (3.8-10.6)
[2019-11-08 02:18] LABS: Platelet Count 30 k/uL (150-450); Poikilocytosis (M) Present; Polychromasia Present
[2019-11-08] MEDS ORDERED: SODIUM CHLORIDE 0.9% 1,000 ML IV STA ×2 (02:51)
[2019-11-08] MEDS ORDERED: POTASSIUM BICARBONATE/CIT AC 20 MEQ TABLET.EFF PO ONE (02:51)
[2019-11-08] MEDS ORDERED: ENOXAPARIN 40 MG/0.4 ML SYRINGE SQ SCH (09:00)
[2019-11-08 09:06] LABS: Appearance,Urine Cloudy (Clear); Bacteria,Urine Rare /hpf; Bilirubin,Urine 1+ (Negative); Blood,Urine Negative (Negative); Color,Urine Dark Yellow; Glucose,Urine (UA) Negative (Negative); Granular Casts,Urine 4 /lpf (0); Ketones,Urine Negative (Negative); Leukocyte Esterase,Urine Negative (Negative); Mucus,Urine Rare /hpf; Nitrite,Urine Negative (Negative); PH, Urine 5.5 (5.0-8.0); Protein,Urine 1+ (Negative); RBC,Urine 2 /hpf (0-5); Specific Gravity,Urine 1.021 (1.001-1.035); Squamous Epithelial Cell,Urine 1 /hpf (0-4); WBC,Urine 3 /hpf (0-5)
[2019-11-08] MEDS: PANTOPRAZOLE 40 MG/10 ML VIAL IV SCH (09:29)
[2019-11-08] MEDS ORDERED: Potassium Replacement Protocol 1 EACH MISC MISCELLANE PRN (11:23)
[2019-11-08] MEDS: POTASSIUM CHLORIDE ER 20 MEQ TAB.ER PO SCH (11:30)
--- NOTE | 2019-11-08 11:30 | P.CONS ---
History of Present Illness - Reason for Consult Consult date: 11/08/19 AML Requesting physician: Jered Stack - Chief Complaint fever - History of Present Illness Mr. Bundy is a very pleasant 74 year old male pt of Dr. Hawk with a history of MDS, first noted to have thrombocytopenia abnormalities in 2014. 05/06/15, SPEP and immunofixation were negative for monoclonal protein, hepatitis C antibodies and hepatitis B were negative, no anticardiolipin antibodies. 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 He decided for supportive care only. Repeat bone marrow biopsy on 11/28/18 revealed hypercellular marrow, no progression to AML. In January 2019, he was admitted to [facility] for A fib with RVR and ended up with cardiac ablation. Recently his CBC is notably changing with anemia and increasing WBC. He had a bone marrow biopsy with Dr. Hawk on 10/29, unfortunately he has transformed to AML. He was supposed to f/u with Dr. Hawk next week to discuss. He is admitted with fever, generalized weakness, blood when blowing nose, denies ear pain, sore throat, chest pain, has a slight cough, no purulent sputum, no nausea, vomiting, indigestion, heartburn, diarrhea, constipation, dysuria, hematuria, swelling or rash. Review of Systems 14 point review of systems is negative except as stated in HPI Past Medical History Past Medical History: Atrial Fibrillation, Atrial Flutter, Blood Disorder, Coronary Artery Disease (CAD), Cancer, GERD/Reflux, Hyperlipidemia, Hypertension, Osteoarthritis (OA) Additional Past Medical History / Comment(s): CHRONIC LOW PLATELETS-MDS, leukemia History of Any Multi-Drug Resistant Organisms: None Reported Past Surgical History: Appendectomy, Heart Catheterization With Stent Additional Past Surgical History / Comment(s): pilonidal cyst surg. COLONOSCOPY. BONE MARROW BX-12/28, 10/28. stents x 2 2012. [employer] january 2019 Past Anesthesia/Blood Transfusion Reactions: No Reported Reaction Date of Last Stent Placement:: September 2012 Past Psychological History: No Psychological Hx Reported Smoking Status: Former smoker, Never smoker Past Alcohol Use History: None Reported Additional Past Alcohol Use History / Comment(s): QUIT SMOKING 40 YEARS AGO Past Drug Use History: None Reported - Past Family History Mother Family Medical History: No Reported History Additional Family Medical History / Comment(s): at age 97 Father Family Medical History: Cancer Additional Family Medical History / Comment(s): kidney cancer-drowned at age 77 Medications and Allergies Home Medications Medication Instructions Recorded Confirmed Type Terazosin [Hytrin] 5 mg PO DAILY 03/28/14 11/08/19 History Atorvastatin Calcium [Lipitor] 20 mg PO DAILY 11/08/19 11/08/19 History Allergies Allergy/AdvReac Type Severity Reaction Status Date / Time Penicillins Allergy Rash/Hives Verified 11/08/19 08:10 Sulfa (Sulfonamide Allergy Rash/Hives Verified 11/08/19 08:10 Antibiotics) Physical Exam Vitals: Vital Signs Temp Pulse Pulse Pulse Resp BP BP 11/08/19 07:00 98.1 F 63 22 103/62 11/08/19 04:29 98.3 F 60 18 109/62 11/08/19 03:41 98.2 F 61 16 121/58 11/08/19 02:19 100.0 F H 11/08/19 01:41 16 11/08/19 01:09 102.5 F H 90 18 142/73 Pulse Ox 11/08/19 07:00 95 11/08/19 04:29 96 11/08/19 03:41 11/08/19 02:19 11/08/19 01:41 11/08/19 01:09 94 L Intake and Output 11/07/19 11/08/19 11/08/19 22:59 06:59 14:59 Intake Total 900 Balance 900 Intake: Intake, IV Titration 900 Amount Sodium Chloride 0.9% 1, 900 000 ml @ 999 mls/hr IV . Q1H1M STA Rx#:[id number] Other: Weight 81.647 kg - Constitutional General appearance: average body habitus, cooperative, no acute distress - EENT Eyes: anicteric sclerae, EOMI ENT: hearing grossly normal, normal oropharynx, thrush (scant) - Neck Neck: no lymphadenopathy - Respiratory Respiratory: bilateral: diminished (bases) - Cardiovascular Rhythm: regular Heart sounds: normal: S1, S2 Abnormal Heart Sounds: systolic murmur (harsh) - Gastrointestinal General gastrointestinal: no absent bowel sounds, no decreased bowel sounds, no distended, no hepatomegaly, no hyperactive bowel sounds, normal bowel sounds, no organomegaly, no rigid, no scaphoid, soft, no splenomegaly, no tenderness, no umbilical hernia, no ventral hernia - Integumentary Integumentary: normal - Neurologic Neurologic: CNII-XII intact - Musculoskeletal Musculoskeletal: strength equal bilaterally - Psychiatric Psychiatric: A&O x's 3, appropriate affect, intact judgment & insight Results CBC & Chem 7: 11/08/19 01:29 11/08/19 01:29 Labs: Abnormal Lab Results - Last 24 Hours (Table) 11/08/19 11/08/19 11/08/19 Range/Units 01:29 01:29 01:29 WBC 79.1 H* (3.8-10.6) k/uL RBC 2.34 L (4.30-5.90) m/uL Hgb 7.3 L (13.0-17.5) gm/dL Hct 22.3 L (39.0-53.0) % RDW 21.2 H (11.5-15.5) % Plt Count 30 L (150-450) k/uL Blast Cells % 35 H* % Neutrophils # (Manual) 27.60 H (1.3-7.7) k/uL Lymphocytes # (Manual) 9.49 H (1.0-4.8) k/uL Monocytes # (Manual) 5.54 H (0-1.0) k/uL Metamyelocytes # (Man) 5.54 H (0) k/uL Myelocytes # (Manual) 4.75 H (0) k/uL Blast Cells # (Man) 27.69 H (0) k/uL Nucleated RBCs 17 H (0-0) /100 WBC PT 12.5 H (9.0-12.0) sec INR 1.2 H (<1.2) Potassium 3.2 L (3.5-5.1) mmol/L Chloride 109 H (98-107) mmol/L BUN 22 H (9-20) mg/dL Creatinine 1.62 H (0.66-1.25) mg/dL Calcium 8.1 L (8.4-10.2) mg/dL Total Bilirubin 2.0 H (0.2-1.3) mg/dL AST 84 H (17-59) U/L Alkaline Phosphatase 156 H (38-126) U/L Lactate Dehydrogenase 3736 H (313-618) U/L C-Reactive Protein 59.8 H (<10.0) mg/L Albumin 3.1 L (3.5-5.0) g/dL Urine Protein (Negative) Urine Bilirubin (Negative) Urine Bacteria (None) /hpf Urine Mucus (None) /hpf 11/08/19 Range/Units 08:51 WBC (3.8-10.6) k/uL RBC (4.30-5.90) m/uL Hgb (13.0-17.5) gm/dL Hct (39.0-53.0) % RDW (11.5-15.5) % Plt Count (150-450) k/uL Blast Cells % % Neutrophils # (Manual) (1.3-7.7) k/uL Lymphocytes # (Manual) (1.0-4.8) k/uL Monocytes # (Manual) (0-1.0) k/uL Metamyelocytes # (Man) (0) k/uL Myelocytes # (Manual) (0) k/uL Blast Cells # (Man) (0) k/uL Nucleated RBCs (0-0) /100 WBC PT (9.0-12.0) sec INR (<1.2) Potassium (3.5-5.1) mmol/L Chloride (98-107) mmol/L BUN (9-20) mg/dL Creatinine (0.66-1.25) mg/dL Calcium (8.4-10.2) mg/dL Total Bilirubin (0.2-1.3) mg/dL AST (17-59) U/L Alkaline Phosphatase (38-126) U/L Lactate Dehydrogenase (313-618) U/L C-Reactive Protein (<10.0) mg/L Albumin (3.5-5.0) g/dL Urine Protein 1+ H (Negative) Urine Bilirubin 1+ H (Negative) Urine Bacteria Rare H (None) /hpf Urine Mucus Rare H (None) /hpf Chest x-ray: report reviewed Assessment and Plan (1) Fever Narrative/Plan: Quintero cultures pending, empiric antibiotics Current Visit: Yes Status: Acute Priority: High Code(s): R50.9 - FEVER, UNSPECIFIED SNOMED Code(s): 059528480 (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 It a bone marrow biopsy and aspirate 10/29, pathology revealing transformation to AML. Patient is refuse treatment in the past for the MDS other than supportive care with transfusions. I asked patient if he was considering treatment for AML and he had additional questions. Patient is not a candidate for transplant. The treatment he would be a candidate for consists of a daily oral medication as well as infusion every 4 weeks for 5 or 7 days depending on the drug. Patient asked some questions about side effects, we discussed risk of infection, need for transfusions, and aggressive follow-up is necessary if some is going to take on treatment for acute leukemia. He does have a follow-up with Dr. Hawk next week. he will make some further decisions. Tumor lysis and hemolysis labs have been ordered based on other abnormal labs. May possibly start a low dose Hydrea, pending discussion with primary Oncologist. Patient was told that this medication may be ordered and he was agreeable to the same. Current Visit: Yes Status: Acute Priority: High Code(s): C92.00 - ACUTE MYELOBLASTIC LEUKEMIA, NOT HAVING ACHIEVED REMISSION SNOMED Code(s): 74712212 (3) Anemia Narrative/Plan: Transfuse with irradiated blood products Transfuse for hemoglobin less than 7 unless symptomatic, hemoglobin 7.3 today no transfusion needed Current Visit: Yes Status: Chronic Priority: Medium Code(s): D64.9 - ANEMIA, UNSPECIFIED SNOMED Code(s): 552473713 (4) Thrombocytopenia Narrative/Plan: Transfuse for platelet count less than 10,000 unless symptomatic. No transfusion for a platelet count of 30,000 today. No aspirin, NSAIDs her anticoagulation for platelet count less than 50,000 Current Visit: Yes Status: Chronic Priority: Medium Code(s): D69.6 - THROMBOCYTOPENIA, UNSPECIFIED SNOMED Code(s): 915067434
[2019-11-08] MEDS ORDERED: DOXAZOSIN 4 MG TAB PO SCH (11:45)
[2019-11-08] MEDS: ATORVASTATIN 20 MG TAB PO SCH (11:54)
[2019-11-08 12:32] LABS: Phosphorus 4.1 mg/dL (2.5-4.5); Uric Acid 10.7 mg/dL (3.5-8.5)
--- NOTE | 2019-11-08 17:22 | P.HPIM ---
History of Present Illness H&P Date: 11/08/19 Chief Complaint: Short of breath History of presenting complaint: This is a pleasant 74-year-old patient of Dr. Watson gonzales. Chronic stable medical conditions include coronary artery disease with stent, atrial flutter fibrillation, GERD, hypertension, osteoarthritis, myelodysplastic syndrome with chronically low platelets. Patient has been short of breath for a while. Does have a cough with clear sputum. Has been having edema. Decreased appetite. Having bowel movements. Tired rundown. Also having fevers. Patient has followed up with Dr. Hawk from hematology. Has had previous bone marrow biopsies. 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 Review of systems: GEN.: Tired, fever EYES: None HEENT: None NECK: None RESPIRATORY: [As above CARDIOVASCULAR: None GASTROINTESTINAL: None GENITOURINARY: None MUSCULOSKELETAL: Joint pains LYMPHATICS: None HEMATOLOGICAL: None PSYCHIATRY: None NEUROLOGICAL: None Past medical history to include: Atrial flutter fibrillation, coronary artery disease with stent, GERD, hyperlipidemia, hypertension, osteoarthritis, myelodysplastic syndrome with low platelets, patient had bone marrow biopsy in 2019 in October of this year, permanent pacemaker Social history: , used to work in office, smoked for about 30 years stopped about 40 years ago. No alcohol. Physical examination: VITAL SIGNS: 102.5, 90, 18, 142/73, 94% on 2 L GENERAL: BMI 27.4, sitting up in bed, but tired. EYES: Pupils equal. Conjunctiva normal. HEENT: External appearance of nose and ears normal, oral cavity grossly normal. NECK: JVD not raised; masses not palpable. HEART: First and second heart sounds are normal; no edema. LUNGS: Respiratory rate increased, decreased breath sounds. ABDOMEN: Soft, nontender, liver spleen not palpable, no masses palpable. PSYCH: Alert and oriented x3; mood and affect normal. NEUROLOGICAL: Cranial nerves grossly intact; no facial asymmetry, power and sensation grossly intact. 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 Patient put on IV ceftriaxone empirically. Hematology was consulted. Further workup with them. Patient is due to follow Dr. Hawk recently for transformation to AML. Past Medical History Past Medical History: Atrial Fibrillation, Atrial Flutter, Blood Disorder, Coronary Artery Disease (CAD), Cancer, GERD/Reflux, Hyperlipidemia, Hypertension, Osteoarthritis (OA) Additional Past Medical History / Comment(s): CHRONIC LOW PLATELETS-MDS, leukemia History of Any Multi-Drug Resistant Organisms: None Reported Past Surgical History: Appendectomy, Heart Catheterization With Stent Additional Past Surgical History / Comment(s): pilonidal cyst surg. COLONOSCOPY. BONE MARROW BX-12/28, 10/28. stents x 2 2012. pacemarker january 2019 Past Anesthesia/Blood Transfusion Reactions: No Reported Reaction Date of Last Stent Placement:: September 2012 Past Psychological History: No Psychological Hx Reported Smoking Status: Former smoker, Never smoker Past Alcohol Use History: None Reported Additional Past Alcohol Use History / Comment(s): QUIT SMOKING 40 YEARS AGO Past Drug Use History: None Reported - Past Family History Mother Family Medical History: No Reported History Additional Family Medical History / Comment(s): at age 97 Father Family Medical History: Cancer Additional Family Medical History / Comment(s): kidney cancer-drowned at age 77 Medications and Allergies Home Medications Medication Instructions Recorded Confirmed Type Terazosin [Hytrin] 5 mg PO DAILY 03/28/11/08/19 History Atorvastatin Calcium [Lipitor] 20 mg PO DAILY 11/08/19 11/08/19 History Allergies Allergy/AdvReac Type Severity Reaction Status Date / Time Penicillins Allergy Rash/Hives Verified 11/08/19 08:10 Sulfa (Sulfonamide Allergy Rash/Hives Verified 11/08/19 08:10 Antibiotics) Physical Exam Vitals: Vital Signs Temp Pulse Pulse Pulse Resp BP BP 11/08/19 07:00 98.1 F 63 22 103/62 11/08/19 04:29 98.3 F 60 18 109/62 11/08/19 03:41 98.2 F 61 16 121/58 11/08/19 02:19 100.0 F H 11/08/19 01:41 16 11/08/19 01:09 102.5 F H 90 18 142/73 Pulse Ox 11/08/19 07:00 95 11/08/19 04:29 96 11/08/19 03:41 11/08/19 02:19 11/08/19 01:41 11/08/19 01:09 94 L Intake and Output 11/07/19 11/08/19 11/08/19 22:59 06:59 14:59 Intake Total 900 Balance 900 Intake: Intake, IV Titration 900 Amount Sodium Chloride 0.9% 1, 900 000 ml @ 999 mls/hr IV . Q1H1M STA Rx#:[id number] Other: Weight 81.647 kg Results CBC & Chem 7: 11/08/19 01:29 11/08/19 01:29 Labs: Abnormal Lab Results - Last 24 Hours (Table) 11/08/19 11/08/19 11/08/19 Range/Units 01:29 01:29 01:29 WBC 79.1 H* (3.8-10.6) k/uL RBC 2.34 L (4.30-5.90) m/uL Hgb 7.3 L (13.0-17.5) gm/dL Hct 22.3 L (39.0-53.0) % RDW 21.2 H (11.5-15.5) % Plt Count 30 L (150-450) k/uL Blast Cells % 35 H* % Neutrophils # (Manual) 27.60 H (1.3-7.7) k/uL Lymphocytes # (Manual) 9.49 H (1.0-4.8) k/uL Monocytes # (Manual) 5.54 H (0-1.0) k/uL Metamyelocytes # (Man) 5.54 H (0) k/uL Myelocytes # (Manual) 4.75 H (0) k/uL Blast Cells # (Man) 27.69 H (0) k/uL Nucleated RBCs 17 H (0-0) /100 WBC PT 12.5 H (9.0-12.0) sec INR 1.2 H (<1.2) Potassium 3.2 L (3.5-5.1) mmol/L Chloride 109 H (98-107) mmol/L BUN 22 H (9-20) mg/dL Creatinine 1.62 H (0.66-1.25) mg/dL Calcium 8.1 L (8.4-10.2) mg/dL Total Bilirubin 2.0 H (0.2-1.3) mg/dL AST 84 H (17-59) U/L Alkaline Phosphatase 156 H (38-126) U/L Lactate Dehydrogenase 3736 H (313-618) U/L C-Reactive Protein 59.8 H (<10.0) mg/L Albumin 3.1 L (3.5-5.0) g/dL Urine Protein (Negative) Urine Bilirubin (Negative) Urine Bacteria (None) /hpf Urine Mucus (None) /hpf 11/08/19 Range/Units 08:51 WBC (3.8-10.6) k/uL RBC (4.30-5.90) m/uL Hgb (13.0-17.5) gm/dL Hct (39.0-53.0) % RDW (11.5-15.5) % Plt Count (150-450) k/uL Blast Cells % % Neutrophils # (Manual) (1.3-7.7) k/uL Lymphocytes # (Manual) (1.0-4.8) k/uL Monocytes # (Manual) (0-1.0) k/uL Metamyelocytes # (Man) (0) k/uL Myelocytes # (Manual) (0) k/uL Blast Cells # (Man) (0) k/uL Nucleated RBCs (0-0) /100 WBC PT (9.0-12.0) sec INR (<1.2) Potassium (3.5-5.1) mmol/L Chloride (98-107) mmol/L BUN (9-20) mg/dL Creatinine (0.66-1.25) mg/dL Calcium (8.4-10.2) mg/dL Total Bilirubin (0.2-1.3) mg/dL AST (17-59) U/L Alkaline Phosphatase (38-126) U/L Lactate Dehydrogenase (313-618) U/L C-Reactive Protein (<10.0) mg/L Albumin (3.5-5.0) g/dL Urine Protein 1+ H (Negative) Urine Bilirubin 1+ H (Negative) Urine Bacteria Rare H (None) /hpf Urine Mucus Rare H (None) /hpf Thrombosis Risk Factor Assmnt - Choose All That Apply Any of the Below Risk Factors Present?: No Other Risk Factors: Yes Each Risk Factor Represents 3 Points: Age 75 years or older Thrombosis Risk Factor Assessment Total Risk Factor Score: 3 Thrombosis Risk Factor Assessment Level: Moderate Risk
[2019-11-08] MEDS ORDERED: RASBURICASE 6 MG in SODIUM CHLORIDE 0.9% 46 ML IV ONE (18:37)
[2019-11-08] MEDS: ACETAMINOPHEN TAB 325 MG TAB PO PRN (19:58)
[2019-11-08] MEDS: HYDROXYUREA 500 MG CAP PO SCH (21:27)
[2019-11-09 05:54] LABS: Anisocytosis Moderate; HCT 21.9 % (39.0-53.0); Hypochromasia Slight; MCHC 30.9 g/dL (31.0-37.0); MCV 97.2 fL (80.0-100.0); Macrocytosis Slight; RBC 2.25 m/uL (4.30-5.90); RDW 21.1 % (11.5-15.5)
[2019-11-09 05:56] LABS: HGB 6.7 gm/dL (13.0-17.5)
[2019-11-09 06:04] LABS: Albumin 2.7 g/dL (3.5-5.0); Phosphorus 4.4 mg/dL (2.5-4.5); Total Bilirubin 1.2 mg/dL (0.2-1.3); Total Protein 6.3 g/dL (6.3-8.2); Uric Acid 7.6 mg/dL (3.5-8.5)
[2019-11-09 06:18] LABS: Band Neutrophils % 5 %; Blast Cells # (M) 33.04 k/uL (0); Lymphocytes # (M) 6.61 k/uL (1.0-4.8); Metamyelocytes # (M) 6.61 k/uL (0); Metamyelocytes % 7 %; Monocytes # (M) 1.89 k/uL (0-1.0); Myelocytes # (M) 13.22 k/uL (0); Myelocytes % 14 %; Neutrophils % (M) 31 %; Nucleated Red Blood Cells 5 /100 WBC (0-0); Total Cells Counted 200; WBC 94.4 k/uL (3.8-10.6)
[2019-11-09 06:19] LABS: Platelet Count 27 k/uL (150-450); Poikilocytosis (M) Present; Polychromasia Present
[2019-11-09] MEDS: HYDROXYUREA 500 MG CAP PO SCH ×3 (07:15→21:33)
[2019-11-09] MEDS: PANTOPRAZOLE 40 MG/10 ML VIAL IV SCH (07:15)
[2019-11-09] MEDS: ATORVASTATIN 20 MG TAB PO SCH (07:15)
[2019-11-09] MEDS ORDERED: HYDROXYUREA 500 MG CAP PO SCH (09:00)
--- NOTE | 2019-11-09 19:41 | P.PN ---
Subjective Progress Note Date: 11/09/19 Principal diagnosis: AML Confused today no acute distress. His blast counts have increased, hemoglobin 6.7. Transfusion ordered Objective - Vital Signs Vital signs: Vital Signs Temp 98.9 F 11/09/19 07:14 Pulse 63 11/09/19 07:14 Resp 22 11/09/19 07:14 BP 126/72 11/09/19 07:14 Pulse Ox 93 L 11/09/19 07:14 Intake & Output 11/08/19 11/09/19 11/09/19 18:59 06:59 18:59 Intake Total 50 Balance 50 Intake: Intake, IV Titration 50 Amount Rasburicase 6 mg In 50 Sodium Chloride 0.9% 46 ml @ 100 mls/hr IV ONCE ONE Rx#:[id number] Other: Voiding Method Toilet # Voids 4 200 - Exam - Constitutional General appearance: average body habitus, cooperative, no acute distress - EENT Eyes: anicteric sclerae, EOMI ENT: hearing grossly normal, normal oropharynx, thrush (scant) - Neck Neck: no lymphadenopathy - Respiratory Respiratory: bilateral: diminished (bases) - Cardiovascular Rhythm: regular Heart sounds: normal: S1, S2 Abnormal Heart Sounds: systolic murmur (harsh) - Gastrointestinal General gastrointestinal: no absent bowel sounds, no decreased bowel sounds, no distended, no hepatomegaly, no hyperactive bowel sounds, normal bowel sounds, no organomegaly, no rigid, no scaphoid, soft, no splenomegaly, no tenderness, no umbilical hernia, no ventral hernia - Integumentary Integumentary: normal - Neurologic Neurologic: CNII-XII intact - Musculoskeletal Musculoskeletal: strength equal bilaterally - Psychiatric Psychiatric: A&O x's 3, appropriate affect, intact judgment & insight - Labs CBC & Chem 7: 11/09/19 05:25 11/09/19 05:25 Labs: Abnormal Lab Results - Last 24 Hours (Table) 11/08/19 11/08/19 11/09/19 Range/Units 01:29 01:29 05:25 WBC 94.4 H* (3.8-10.6) k/uL RBC 2.25 L (4.30-5.90) m/uL Hgb 6.7 L* (13.0-17.5) gm/dL Hct 21.9 L (39.0-53.0) % MCHC 30.9 L (31.0-37.0) g/dL RDW 21.1 H (11.5-15.5) % Plt Count 27 L (150-450) k/uL Blast Cells % 35 H* % Neutrophils # (Manual) 33.90 H (1.3-7.7) k/uL Lymphocytes # (Manual) 6.61 H (1.0-4.8) k/uL Monocytes # (Manual) 1.89 H (0-1.0) k/uL Metamyelocytes # (Man) 6.61 H (0) k/uL Myelocytes # (Manual) 13.22 H (0) k/uL Blast Cells # (Man) 33.04 H (0) k/uL Nucleated RBCs 5 H (0-0) /100 WBC Chloride (98-107) mmol/L BUN (9-20) mg/dL Creatinine (0.66-1.25) mg/dL Calcium (8.4-10.2) mg/dL Ferritin 2958.0 H (22.0-322.0) ng/mL AST (17-59) U/L Alkaline Phosphatase (38-126) U/L Albumin (3.5-5.0) g/dL Procalcitonin 0.55 H (0.02-0.09) ng/mL Crossmatch 11/09/19 11/09/19 Range/Units 05:25 09:50 WBC (3.8-10.6) k/uL RBC (4.30-5.90) m/uL Hgb (13.0-17.5) gm/dL Hct (39.0-53.0) % MCHC (31.0-37.0) g/dL RDW (11.5-15.5) % Plt Count (150-450) k/uL Blast Cells % % Neutrophils # (Manual) (1.3-7.7) k/uL Lymphocytes # (Manual) (1.0-4.8) k/uL Monocytes # (Manual) (0-1.0) k/uL Metamyelocytes # (Man) (0) k/uL Myelocytes # (Manual) (0) k/uL Blast Cells # (Man) (0) k/uL Nucleated RBCs (0-0) /100 WBC Chloride 113 H (98-107) mmol/L BUN 24 H (9-20) mg/dL Creatinine 1.52 H (0.66-1.25) mg/dL Calcium 8.0 L (8.4-10.2) mg/dL Ferritin (22.0-322.0) ng/mL AST 89 H (17-59) U/L Alkaline Phosphatase 142 H (38-126) U/L Albumin 2.7 L (3.5-5.0) g/dL Procalcitonin (0.02-0.09) ng/mL Crossmatch See Detail Microbiology - Last 24 Hours (Table) 11/08/19 01:29 Blood Culture - Preliminary Blood No Growth after 24 hours Assessment and Plan Plan: Assessment and Plan Fever - Improved today: - Quintero cultures pending, empiric antibiotics 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 It a bone marrow biopsy and aspirate 10/29, pathology revealing transformation to AML. - Patient is refuse treatment in the past for the MDS other than supportive care with transfusions. - He does have a follow-up with Dr. Hawk next week. he will make some further decisions. Elevated Uric Acid and Acute Renal Insufficiency : - Secondary to TLS - Status Post Elitek on 11/08/19 Anemia - Secondary to AML Transfuse with irradiated blood products, Transfuse today hemoglobin 6.7 Transfuse for hemoglobin less than 7 unless symptomatic, Thrombocytopenia - Transfuse for platelet count less than 10,000 unless symptomatic. No transfusion for a platelet count of 30,000 today. No aspirin, NSAIDs her anticoagulation for platelet count less than 50,000
--- NOTE | 2019-11-09 23:13 | P.PN ---
Progress Note - Text Progress Note Date: 11/09/19 Chief Complaint: Short of breath History of presenting complaint: This is a pleasant 74-year-old patient of Dr. Watson gonzales. Chronic stable medical conditions include coronary artery disease with stent, atrial flutter fibrillation, GERD, hypertension, osteoarthritis, myelodysplastic syndrome with chronically low platelets. Patient has been short of breath for a while. Does have a cough with clear sputum. Has been having edema. Decreased appetite. Having bowel movements. Tired rundown. Also having fevers. Patient has followed up with Dr. Hawk from hematology. Has had previous bone marrow biopsies. 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 Empirically on ceftriaxone Today-laying in bed. Tired. Febrile. Decreased hemoglobin. Decreased appetite. No fevers today. Review of systems: Was done for constitutional, cardiovascular, GI, pulmonary. relevant finding as above Active Medications Acetaminophen (Tylenol Tab) 650 mg PO Q4HR PRN PRN Reason: Fever and/ or Pain Last Admin: 11/08/19 19:58 Dose: 650 mg Documented by: Atorvastatin Calcium (Lipitor) 20 mg PO DAILY [facility] Last Admin: 11/09/19 07:15 Dose: 20 mg Documented by: Hydroxyurea (Hydrea) 500 mg PO TID [facility] Last Admin: 11/09/19 21:33 Dose: 500 mg Documented by: Ceftriaxone Sodium 1 gm/ (Sodium Chloride) 50 mls @ 100 mls/hr IVPB Q24H [facility] Last Admin: 11/09/19 03:03 Dose: 100 mls/hr Documented by: Miscellaneous Information (Potassium Per Protocol) 1 each MISCELLANE DAILY PRN; Protocol PRN Reason: Per Protocol Pantoprazole Sodium (Protonix) 40 mg IV DAILY [facility] Last Admin: 11/09/19 07:15 Dose: 40 mg Documented by: Physical examination: VITAL SIGNS: 98.9, 62, 22, 126/72, 92% on 2 L GENERAL: Laying in bed, tired EYES: Pupils equal. Conjunctiva normal. HEENT: External appearance of nose and ears normal, oral cavity grossly normal. NECK: JVD not raised; masses not palpable. HEART: First and second heart sounds are normal; no edema. LUNGS: Respiratory rate increased, decreased breath sounds. ABDOMEN: Soft, nontender, liver spleen not palpable, no masses palpable. PSYCH: Diet, answering questions INVESTIGATIONS, reviewed in the clinical context: White count 94.4 hemoglobin 6.7 platelets 27 increased blood cells potassium 4 bun 24 creatinine 1.5 to Previous testing White count 79.1 hemoglobin 7.3 platelets 30 blast cells 35% increased neutrophils, lymphocytes ProTime 12.5 potassium 3.2 Bun 22 creatinine 1.6 to ferritin 2958 bilirubin 2 alkaline phosphatase 156 LDH 3736 CRP 59.8 albumin 3.1 pro calcitonin 0.55 uric acid 10.7 EKG tracing personally reviewed by me-ventricle paced rhythm Chest x-ray film personally reviewed by me-prominent interstitium cannot rule out pleural effusion Assessment: -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 Continue ceftriaxone. Also hydroxyurea. Follow course closely.
[2019-11-10] MEDS: ATORVASTATIN 20 MG TAB PO SCH (07:48)
[2019-11-10] MEDS: PANTOPRAZOLE 40 MG/10 ML VIAL IV SCH (07:48)
[2019-11-10] MEDS: HYDROXYUREA 500 MG CAP PO SCH ×3 (07:48→21:31)
[2019-11-10 07:52] LABS: Anisocytosis Slight; HCT 22.8 % (39.0-53.0); HGB 7.4 gm/dL (13.0-17.5); Hypochromasia Slight; MCH 31.1 pg (25.0-35.0); MCHC 32.6 g/dL (31.0-37.0); MCV 95.3 fL (80.0-100.0); Macrocytosis Slight; RDW 19.5 % (11.5-15.5)
[2019-11-10 08:02] LABS: Platelet Count 28 k/uL (150-450)
[2019-11-10 09:07] LABS: Band Neutrophils % 2 %; Blast Cells # (M) 35.28 k/uL (0); Lymphocytes # (M) 4.41 k/uL (1.0-4.8); Metamyelocytes # (M) 3.68 k/uL (0); Metamyelocytes % 5 %; Monocytes # (M) 4.41 k/uL (0-1.0); Myelocytes # (M) 6.62 k/uL (0); Myelocytes % 9 %; Neutrophils % (M) 27 %; Nucleated Red Blood Cells 13 /100 WBC (0-0); Total Cells Counted 200; WBC 73.5 k/uL (3.8-10.6)
--- NOTE | 2019-11-10 18:26 | P.PN ---
Progress Note - Text Progress Note Date: 11/10/19 Chief Complaint: Short of breath History of presenting complaint: This is a pleasant 74-year-old patient of Dr. Watson gonzales. Chronic stable medical conditions include coronary artery disease with stent, atrial flutter fibrillation, GERD, hypertension, osteoarthritis, myelodysplastic syndrome with chronically low platelets. Patient has been short of breath for a while. Does have a cough with clear sputum. Has been having edema. Decreased appetite. Having bowel movements. Tired rundown. Also having fevers. Patient has followed up with Dr. Hawk from hematology. Has had previous bone marrow biopsies. 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 Empirically on ceftriaxone. Admitted with AML transformation. Started on hydroxyurea for tumor lysis syndrome and IV ceftriaxone. Patient received a unit of packed red blood cell Today-decrease appetite. A bit tired. Some shortness of breath. Laying in bed. Eating about 50% of his meals Review of systems: Was done for constitutional, cardiovascular, GI, pulmonary. relevant finding as above Active Medications Acetaminophen (Tylenol Tab) 650 mg PO Q4HR PRN PRN Reason: Fever and/ or Pain Last Admin: 11/08/19 19:58 Dose: 650 mg Documented by: Atorvastatin Calcium (Lipitor) 20 mg PO DAILY [facility] Last Admin: 11/10/19 07:48 Dose: 20 mg Documented by: Hydroxyurea (Hydrea) 500 mg PO TID [facility] Last Admin: 11/10/19 15:52 Dose: 500 mg Documented by: Ceftriaxone Sodium 1 gm/ (Sodium Chloride) 50 mls @ 100 mls/hr IVPB Q24H [facility] Last Admin: 11/10/19 02:21 Dose: 100 mls/hr Documented by: Miscellaneous Information (Potassium Per Protocol) 1 each MISCELLANE DAILY PRN; Protocol PRN Reason: Per Protocol Pantoprazole Sodium (Protonix) 40 mg PO DAILY [facility] Physical examination: VITAL SIGNS: 98.6, 60, 32, 122/70, 94% on 3 L GENERAL: Laying in bed, tired EYES: Pupils equal. Conjunctiva normal. HEENT: External appearance of nose and ears normal, oral cavity grossly normal. NECK: JVD not raised; masses not palpable. HEART: First and second heart sounds are normal; no edema. LUNGS: Respiratory rate increased, decreased breath sounds. ABDOMEN: Soft, nontender, liver spleen not palpable, no masses palpable. 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 On hydroxyurea. On IV ceftriaxone.
[2019-11-11] MEDS: ATORVASTATIN 20 MG TAB PO SCH (08:16)
[2019-11-11] MEDS: HYDROXYUREA 500 MG CAP PO SCH ×3 (08:17→21:18)
[2019-11-11] MEDS: PANTOPRAZOLE 40 MG TABLET PO SCH (08:17)
[2019-11-11 09:15] LABS: Anisocytosis Slight; HCT 21.4 % (39.0-53.0); Hypochromasia Slight; MCH 31.1 pg (25.0-35.0); MCHC 32.3 g/dL (31.0-37.0); MCV 96.5 fL (80.0-100.0); Macrocytosis Slight; Mean Platelet Volume 18.1; RBC 2.22 m/uL (4.30-5.90); RDW 19.4 % (11.5-15.5)
[2019-11-11 09:25] LABS: HGB 6.9 gm/dL (13.0-17.5); Platelet Count 23 k/uL (150-450)
[2019-11-11 10:13] LABS: Band Neutrophils % 2 %; Lymphocytes # (M) 9.57 k/uL (1.0-4.8); Metamyelocytes # (M) 6.62 k/uL (0); Metamyelocytes % 9 %; Monocytes # (M) 4.42 k/uL (0-1.0); Myelocytes # (M) 11.04 k/uL (0); Myelocytes % 15 %; Neutrophils % (M) 20 %; Nucleated Red Blood Cells 11 /100 WBC (0-0); Total Cells Counted 200; WBC 73.6 k/uL (3.8-10.6)
[2019-11-11 10:14] LABS: Blast Cells # (M) 27.23 k/uL (0)
--- NOTE | 2019-11-11 12:23 | P.PN ---
Subjective Progress Note Date: 11/11/19 Principal diagnosis: leukocytosis, MDS transformation to acute myeloid leukemia In follow-up today patient has complaints of persistent weakness, he lacks energy, he denies fevers, oral irritation, sore throat, he is short of breath on exertion, no new or unusual cough, chest pain, nausea or vomiting, he is only been having small amounts of stool every day, he denies black or bloody stool, he is noticing swelling in his lower extremities. Denies any notable side effects from Hydrea Objective - Vital Signs Vital signs: Vital Signs Temp 98.2 F 11/11/19 11:41 Pulse 72 11/11/19 11:41 Resp 22 11/11/19 11:41 BP 118/71 11/11/19 11:41 Pulse Ox 96 11/11/19 11:41 Intake & Output 11/10/19 11/11/19 11/11/19 18:59 06:59 18:59 Intake Total 540 0 Balance 540 0 Intake: Oral 540 Blood Product 0 Rc Irr As1 Unit 0 [id number] Other: Voiding Method Toilet Toilet # Voids 4 2 - Constitutional General appearance: Present: average body habitus, cooperative, no acute distress - EENT Eyes: Present: anicteric sclerae, EOMI ENT: Present: hearing grossly normal - Respiratory Respiratory: bilateral: CTA, diminished - Cardiovascular Rhythm: regular Heart sounds: normal: S1, S2 Abnormal Heart Sounds: Present: systolic murmur - Peripheral edema leg Peripheral Edema: bilateral: 1+ - Gastrointestinal General gastrointestinal: Present: distended, normal bowel sounds, soft - Neurologic Neurologic: Present: CNII-XII intact - Musculoskeletal Musculoskeletal: Present: generalized weakness - Psychiatric Psychiatric: Present: A&O x's 3, appropriate affect, intact judgment & insight - Labs CBC & Chem 7: 11/11/19 06:55 11/09/19 05:25 Labs: Abnormal Lab Results - Last 24 Hours (Table) 11/09/19 11/11/19 Range/Units 09:50 06:55 WBC 73.6 H* (3.8-10.6) k/uL RBC 2.22 L (4.30-5.90) m/uL Hgb 6.9 L* (13.0-17.5) gm/dL Hct 21.4 L (39.0-53.0) % RDW 19.4 H (11.5-15.5) % Plt Count 23 L (150-450) k/uL Blast Cells % 37 H* % Neutrophils # (Manual) 16.10 H (1.3-7.7) k/uL Lymphocytes # (Manual) 9.57 H (1.0-4.8) k/uL Monocytes # (Manual) 4.42 H (0-1.0) k/uL Metamyelocytes # (Man) 6.62 H (0) k/uL Myelocytes # (Manual) 11.04 H (0) k/uL Blast Cells # (Man) 27.23 H (0) k/uL Nucleated RBCs 11 H (0-0) /100 WBC Crossmatch See Detail Microbiology - Last 24 Hours (Table) 11/08/19 01:29 Blood Culture - Preliminary Blood No Growth after 72 hours Assessment and Plan (1) Fever Narrative/Plan: fever pattern has abated, completing course of antibiotics Current Visit: Yes Status: Acute Priority: High Code(s): R50.9 - FEVER, UNSPECIFIED SNOMED Code(s): 458136582 (2) 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 Bone marrow biopsy and aspirate 10/29, pathology revealing transformation to AML. Patient refused treatment in the past for the MDS other than supportive care with transfusions. We have previously discussed the only treatment option available to him at this time is venetoclax with either vidaza or dacogen. We reviewed this again today. Patient is not a candidate for transplant. He does have a follow-up with Dr. Hawk this week. He will make some further decisions. Patient treated for spontaneous tumor lysis. No further evidence to suggest ongoing at this time. Hydrea currently 500 mg 3 times a day. Patient is not having any side effects. His white blood cell count is not changing much but, he is only been on it a few days. Will send this prescription to his [facility]. Current Visit: Yes Status: Acute Priority: High Code(s): C92.00 - ACUTE MYELOBLASTIC LEUKEMIA, NOT HAVING ACHIEVED REMISSION SNOMED Code(s): 63279977 (3) Anemia Narrative/Plan: Transfuse with irradiated blood products Transfuse for hemoglobin less than 7 unless symptomatic, hemoglobin 6.9 1 unit today Current Visit: Yes Status: Chronic Priority: Medium Code(s): D64.9 - ANEMIA, UNSPECIFIED SNOMED Code(s): 598275444 (4) Thrombocytopenia Narrative/Plan: Transfuse for platelet count less than 10,000 unless symptomatic. Platelets stable today. No aspirin, NSAIDs or anticoagulation for platelet count less than 50,000 Current Visit: Yes Status: Chronic Priority: Medium Code(s): D69.6 - THROMBOCYTOPENIA, UNSPECIFIED SNOMED Code(s): 523955560
[2019-11-11] MEDS: PSYLLIUM HUSK 100% 6 GM PACKET PO SCH (17:18)
--- NOTE | 2019-11-11 21:51 | CT ---
EXAMINATION TYPE: CT brain wo con DATE OF EXAM: 11/11/2019 COMPARISON: None HISTORY: Fall. CT DLP: 1099.4 mGycm Automated exposure control for dose reduction was used. Multiple axial sections were obtained of the brain without contrast. There is cerebral mild cortical atrophy. There is no mass effect nor midline shift. There is no sign of intracranial hemorrhage. The calvarium is intact. There is no evidence of cerebral edema. Skull ba se is intact. There is normal aeration of the temporal bones. IMPRESSION: Cerebral atrophy. No acute intracranial abnormality.
--- NOTE | 2019-11-11 22:21 | P.PN ---
Progress Note - Text Progress Note Date: 11/11/19 Chief Complaint: Short of breath History of presenting complaint: This is a pleasant 74-year-old patient of Dr. Watson gonzales. Chronic stable medical conditions include coronary artery disease with stent, atrial flutter fibrillation, GERD, hypertension, osteoarthritis, myelodysplastic syndrome with chronically low platelets. Patient has been short of breath for a while. Does have a cough with clear sputum. Has been having edema. Decreased appetite. Having bowel movements. Tired rundown. Also having fevers. Patient has followed up with Dr. Hakw from hematology. Has had previous bone marrow biopsies. 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 Empirically on ceftriaxone. Admitted with AML transformation. Started on hydroxyurea for tumor lysis syndrome and IV ceftriaxone. Patient received a unit of packed red blood cell Today-sitting up in a chair. Eating some. Feels a bit better. Tired Review of systems: Was done for constitutional, cardiovascular, GI, pulmonary. relevant finding as above Active Medications Acetaminophen (Tylenol Tab) 650 mg PO Q4HR PRN PRN Reason: Fever and/ or Pain Last Admin: 11/08/19 19:58 Dose: 650 mg Documented by: Atorvastatin Calcium (Lipitor) 20 mg PO DAILY [facility] Last Admin: 11/11/19 08:16 Dose: 20 mg Documented by: Hydroxyurea (Hydrea) 500 mg PO TID [facility] Last Admin: 11/11/19 21:18 Dose: 500 mg Documented by: Ceftriaxone Sodium 1 gm/ (Sodium Chloride) 50 mls @ 100 mls/hr IVPB Q24H [facility] Last Admin: 11/11/19 02:51 Dose: 100 mls/hr Documented by: Miscellaneous Information (Potassium Per Protocol) 1 each MISCELLANE DAILY PRN; Protocol PRN Reason: Per Protocol Pantoprazole Sodium (Protonix) 40 mg PO DAILY [facility] Last Admin: 11/11/19 08:17 Dose: 40 mg Documented by: Psyllium Hydrophilic Mucilloid (Metamucil) 6 gm PO DAILY [facility] Last Admin: 11/11/19 17:18 Dose: 6 gm Documented by: Physical examination: VITAL SIGNS: 98.9, 60, 18, 119/61, 98% GENERAL: Sitting up in a chair, eating EYES: Pupils equal. Conjunctiva pale HEENT: External appearance of nose and ears normal, oral cavity grossly normal. NECK: JVD not raised; masses not palpable. HEART: First and second heart sounds are normal; no edema. LUNGS: Respiratory rate increased, decreased breath sounds. ABDOMEN: Soft, nontender, liver spleen not palpable, no masses palpable. 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 On IV ceftriaxone. And IV fluids. Repeat chest x-ray in the morning.
[2019-11-11] MEDS ORDERED: LACTATED RINGERS 1,000 ML IV SCH (22:30)
--- NOTE | 2019-11-12 00:57 | XR ---
EXAMINATION TYPE: XR chest 1V portable DATE OF EXAM: 11/12/2019 COMPARISON: 11/08/2019 HISTORY: Fluid overload. Short of breath TECHNIQUE: Single view FINDINGS: Heart appears slightly enlarged. There is pulmonary vascular congestion. There is some blun ting of the costophrenic angles left axillary pacemaker. There are chest leads. IMPRESSION: Mild congestive heart failure with pleural effusions. Chest slightly worse than last exam .
[2019-11-12] MEDS ORDERED: FUROSEMIDE 10 MG/ML 4 ML VIAL IV STA (01:06)
[2019-11-12] MEDS: PSYLLIUM HUSK 100% 6 GM PACKET PO SCH (07:52)
[2019-11-12] MEDS: HYDROXYUREA 500 MG CAP PO SCH ×3 (07:52→20:54)
[2019-11-12] MEDS: PANTOPRAZOLE 40 MG TABLET PO SCH (07:52)
[2019-11-12] MEDS: ATORVASTATIN 20 MG TAB PO SCH (07:52)
[2019-11-12 07:57] LABS: Anisocytosis Slight; HCT 23.5 % (39.0-53.0); HGB 7.6 gm/dL (13.0-17.5); Hypochromasia Slight; MCHC 32.1 g/dL (31.0-37.0); MCV 93.3 fL (80.0-100.0); Macrocytosis Slight; Mean Platelet Volume 17.4; RBC 2.52 m/uL (4.30-5.90); RDW 18.9 % (11.5-15.5)
[2019-11-12 07:59] LABS: Platelet Count 29 k/uL (150-450)
[2019-11-12 08:15] LABS: Calcium 7.8 mg/dL (8.4-10.2)
[2019-11-12 10:13] LABS: Band Neutrophils % 2 %; Blast Cells # (M) 42.94 k/uL (0); Eosinophils # (M) 0.67 k/uL (0-0.7); Lymphocytes # (M) 8.05 k/uL (1.0-4.8); Metamyelocytes # (M) 0.67 k/uL (0); Metamyelocytes % 1 %; Monocytes # (M) 0.67 k/uL (0-1.0); Myelocytes # (M) 1.34 k/uL (0); Myelocytes % 2 %; Neutrophils % (M) 19 %; Nucleated Red Blood Cells 7 /100 WBC (0-0); Total Cells Counted 200; WBC 67.1 k/uL (3.8-10.6)
[2019-11-12 10:14] LABS: Polychromasia Present
[2019-11-12 10:15] LABS: Poikilocytosis (M) Present
[2019-11-12] MEDS ORDERED: FUROSEMIDE 10 MG/ML 10 ML VIAL IV STA (12:23)
[2019-11-12] MEDS: FUROSEMIDE 10 MG/ML 10 ML VIAL IV SCH ×2 (13:19→21:43)
[2019-11-12] MEDS: SODIUM CHLORIDE 0.65% NASAL SPRAY 44 ML BTL NASAL SCH ×3 (13:19→21:43)
--- NOTE | 2019-11-12 16:44 | P.PN ---
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 In follow-up today patient is declining, he is very weak, he is tired, no appetite, no side effects from Hydrea Objective - Vital Signs Vital signs: Vital Signs Temp 98.5 F 11/12/19 07:00 Pulse 61 11/12/19 07:00 Resp 15 11/12/19 07:00 BP 125/67 11/12/19 07:00 Pulse Ox 94 L 11/12/19 07:00 Intake & Output 11/11/19 11/12/19 11/12/19 18:59 06:59 18:59 Intake Total 310 140 Output Total 550 1400 Balance [phone] -[phone] -[phone] Intake: Oral 140 Blood Product 310 Rc Irr As1 Unit 310 [id number] Output: Urine 550 1400 Other: Voiding Method Toilet # Voids 3 4 - Constitutional General appearance: Present: average body habitus, cooperative, no acute distress - EENT Eyes: Present: anicteric sclerae, EOMI ENT: Present: hearing grossly normal - Respiratory Respiratory: bilateral: CTA (weak inspiratory effort) - Cardiovascular Rhythm: regular Heart sounds: normal: S1, S2 Abnormal Heart Sounds: Present: systolic murmur - Peripheral edema leg Peripheral Edema: bilateral: Trace - Gastrointestinal General gastrointestinal: Present: normal bowel sounds, soft - Neurologic Neurologic: Present: CNII-XII intact - Musculoskeletal Musculoskeletal: Present: generalized weakness - Psychiatric Psychiatric: Present: A&O x's 3, appropriate affect, intact judgment & insight - Labs CBC & Chem 7: 11/12/19 07:37 11/12/19 07:37 Labs: Abnormal Lab Results - Last 24 Hours (Table) 11/09/19 11/12/19 11/12/19 Range/Units 09:50 07:37 07:37 WBC 67.1 H* (3.8-10.6) k/uL RBC 2.52 L (4.30-5.90) m/uL Hgb 7.6 L (13.0-17.5) gm/dL Hct 23.5 L (39.0-53.0) % RDW 18.9 H (11.5-15.5) % Plt Count 29 L (150-450) k/uL Blast Cells % 64 H* % Neutrophils # (Manual) 14.00 H (1.3-7.7) k/uL Lymphocytes # (Manual) 8.05 H (1.0-4.8) k/uL Metamyelocytes # (Man) 0.67 H (0) k/uL Myelocytes # (Manual) 1.34 H (0) k/uL Blast Cells # (Man) 42.94 H (0) k/uL Nucleated RBCs 7 H (0-0) /100 WBC Chloride 112 H (98-107) mmol/L BUN 36 H (9-20) mg/dL Creatinine 1.48 H (0.66-1.25) mg/dL Calcium 7.8 L (8.4-10.2) mg/dL Crossmatch See Detail Microbiology - Last 24 Hours (Table) 11/08/19 01:29 Blood Culture - Preliminary Blood No Growth after 96 hours - Imaging and Cardiology Chest x-ray: report reviewed CT Scan - head: report reviewed Assessment and Plan (1) Fever Narrative/Plan: fever pattern has abated, completing course of antibiotics Current Visit: Yes Status: Acute Priority: High Code(s): R50.9 - FEVER, UNSPECIFIED SNOMED Code(s): 700132132 (2) 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 Bone marrow biopsy and aspirate 10/29, pathology revealing transformation to AML. Patient treated for spontaneous tumor lysis. No further evidence to suggest ongoing at this time. Hydrea currently 500 mg 3 times a day. Patient is not having any side effects. His white blood cell count is decreasing slowly but, unfortunately, his blast % doubled. I told him my concerns for this and that Dr. Hawk needs to know as th is is likely going to effect how we proceed and realistic treatment options. I spoke with Dr. Hawk. Since hydrea is not bringing the WBC count down cytoxan would be the only way to get it down at this point. None of the treatment options are cure, treatment would be ongoing until no longer responding or unacceptable toxicity. I spoke with pt about the above, diagnosis, prognosis, current critical situation, options for care including hospice. I told her that I have not had a chance to talk to her about the conversation I had with Dr. Hawk. After this, she is more inclined to want hospice care for her but, I told her I will talk to him tomorrow. Left message for Hospice Executive Director. Pt and daughter have questions about hospice (I suggested hospice house in [place] as they are located in [place]). Current Visit: Yes Status: Acute Priority: High Code(s): C92.00 - ACUTE MYELOBLASTIC LEUKEMIA, NOT HAVING ACHIEVED REMISSION SNOMED Code(s): 29025154 (3) Anemia Narrative/Plan: Transfuse with irradiated blood products Transfuse for hemoglobin less than 7 unless symptomatic, hemoglobin 7.6 today Current Visit: Yes Status: Chronic Priority: Medium Code(s): D64.9 - A NEMIA, UNSPECIFIED SNOMED Code(s): 664588358 (4) Thrombocytopenia Narrative/Plan: Transfuse for platelet count less than 10,000 unless symptomatic. Platelets 29,000. No aspirin, NSAIDs or anticoagulation for platelet count less than 50,000 Current Visit: Yes Status: Chronic Priority: Medium Code(s): D69.6 - THROMBOCYTOPENIA, UNSPECIFIED SNOMED Code(s): 375497666 Time with Patient: Greater than 30 (45 minutes spent, greater than 50% of time counseling and coordinating care)
--- NOTE | 2019-11-12 18:13 | XR ---
EXAMINATION TYPE: XR chest 2V DATE OF EXAM: 11/12/2019 COMPARISON: Today HISTORY: Fluid overload TECHNIQUE: Single view FINDINGS: Heart is enlarged. There is some pulmonary vascular congestion and pulmonary interstitial e osman. There is left axillary pacemaker. There are chest leads. IMPRESSION: Pulmonary edema and pleural fluid increased compared to the exam this morning. This is co nsistent with congestive heart failure.
--- NOTE | 2019-11-12 19:30 | ECHOF ---
Referral Reason:assess from lv fn MEASUREMENTS -------- HEIGHT: 182.9 cm WEIGHT: 108.9 kg BP: IVSd: 1.2 cm (0.6 - 1.1) LVIDd: 4.5 cm (3.9 - 5.3) LVPWd: 1.1 cm (0.6 - 1.1) IVSs: 1.2 cm LVIDs: 3.3 cm LVPWs: 1.6 cm LA Diam: 4.2 cm (2.7 - 3.8) RVIDd: 3.0 cm (< 3.3) Ao Diam: 3.2 cm (2.0 - 3.7) LA Diam: 4.5 cm (2.7 - 3.8) AV Cusp: 1.0 cm (1.5 - 2.6) EPSS: 0.6 cm MV E Brannon: 1.50 m/s MV DecT: 246 ms MV A Brannon: 0.94 m/s MV E/A Ratio: 1.61 AV maxP.58 mmHg AV meanP.00 mmHg RAP: 5.00 mmHg RVSP: 45.68 mmHg MV EF SLOPE: 137.61 mm/s (70 - 150) MV EXCURSION: 21.52 mm (> 18.000) FINDINGS -------- Sinus rhythm. This was a technically good study. There is mild concentric left ventricular hypertrophy. Overall left ventricular systolic function i s low-normal with, an EF between 50 - 55 %. The right ventricle is normal in size. The left atrium is mildly dilated. The right atrial size is normal. There is moderate aortic stenosis present. Peak/mean gradient across the Aortic Valve is 44.58mmHg / 21.00mmHg. Mild mitral regurgitation is present. Mild tricuspid regurgitation present. There is moderate pulmonary hypertension. There is no pulmonic regurgitation present. The aortic root size is normal. There is no pericardial effusion. CONCLUSIONS -------- 1. There is mild concentric left ventricular hypertrophy. 2. Overall left ventricular systolic function is low-normal with, an EF between 50 - 55 %. 3. The right ventricle is normal in size. 4. The left atrium is mildly dilated. 5. There is moderate aortic stenosis present. 6. Peak/mean gradient across the Aortic Valve is 44.58mmHg / 21.00mmHg. 7. Mild mitral regurgitation is present. 8. Mild tricuspid regurgitation present. 9. There is moderate pulmonary hypertension. 10. There is no pulmonic regurgitation present. WOOD CABINETMAKER: Shelby Milan RDCS
--- NOTE | 2019-11-12 20:31 | P.PN ---
Progress Note - Text Progress Note Date: 11/12/19 Chief Complaint: Short of breath History of presenting complaint: This is a pleasant 74-year-old patient of Dr. Watson gonzales. Chronic stable medical conditions include coronary artery disease with stent, atrial flutter fibrillation, GERD, hypertension, osteoarthritis, myelodysplastic syndrome with chronically low platelets. Patient has been short of breath for a while. Does have a cough with clear sputum. Has been having edema. Decreased appetite. Having bowel movements. Tired rundown. Also having fevers. Patient has followed up with Dr. Hawk from hematology. Has had previous bone marrow biopsies. 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 Empirically on ceftriaxone. Admitted with AML transformation. Started on hydroxyurea for tumor lysis syndrome and IV ceftriaxone. Patient received a unit of packed red blood cell. Double up lower extremity swelling. [place] to be third spacing. IV fluids cutback. Given IV Lasix. Today-Clary seemed to call fall last night. Diet. IV fluids cutback. IV Lasix given. Edema present. at the bedside. Review of systems: Was done for constitutional, cardiovascular, GI, pulmonary. relevant finding as above Active Medications Acetaminophen (Tylenol Tab) 650 mg PO Q4HR PRN PRN Reason: Fever and/ or Pain Last Admin: 11/08/19 19:58 Dose: 650 mg Documented by: Atorvastatin Calcium (Lipitor) 20 mg PO DAILY [facility] Last Admin: 11/12/19 07:52 Dose: 20 mg Documented by: Furosemide (Lasix) 80 mg IV Q12HR REPLACED BY [facility] Last Admin: 11/12/19 13:19 Dose: 80 mg Documented by: Hydroxyurea (Hydrea) 500 mg PO TID [facility]PL[facility] Last Admin: 11/12/19 17:18 Dose: 500 mg Documented by: Ceftriaxone Sodium 1 gm/ (Sodium Chloride) 50 mls @ 100 mls/hr IVPB Q24H [facility]PLAC[facility] Last Admin: 11/12/19 03:24 Dose: 100 mls/hr Documented by: Miscellaneous Information (Potassium Per Protocol) 1 each MISCELLANE DAILY PRN; Protocol PRN Reason: Per Protocol Pantoprazole Sodium (Protonix) 40 mg PO DAILY [facility] Last Admin: 11/12/19 07:52 Dose: 40 mg Documented by: Psyllium Hydrophilic Mucilloid (Metamucil) 6 gm PO DAILY [facility] Last Admin: 11/12/19 07:52 Dose: 6 gm Documented by: Sodium Chloride ([place]) 2 spray NASAL QID REPLACED BY [facility] Last Admin: 11/12/19 19:48 Dose: Not Given Documented by: Physical examination: VITAL SIGNS: 98.5, 61, 15, 125/67, 94% on 3 L GENERAL: Laying in bed, tired EYES: Pupils equal. Conjunctiva pale HEENT: External appearance of nose and ears normal, oral cavity grossly normal. NECK: JVD unable to assess; masses not palpable. HEART: First and second heart sounds are normal; significant edema LUNGS: Respiratory rate increased, decreased breath sounds, some crackles. ABDOMEN: Soft, nontender, liver spleen not palpable, no masses palpable. PSYCH: Tired, answering questions INVESTIGATIONS, reviewed in the clinical context: White count 67.1 hemoglobin 7.6 [place] 64% potassium 4 bun 36 creatinine 1.48 Chest x-ray film personally reviewed by me-shows infiltrates and pulmonary edema and pleural effusion. 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 On IV ceftriaxone. IV fluids had been discontinued. Started on IV Lasix 80 mg every 8. Consultation to cardiology and nephrology. Care is discussed at length with the patient where the bedside. Prognosis guarded. Repeat labs in the morning.
[2019-11-13] MEDS: ACETAMINOPHEN TAB 325 MG TAB PO PRN (01:45)
[2019-11-13 08:23] LABS: Anisocytosis Slight; HCT 27.1 % (39.0-53.0); HGB 8.8 gm/dL (13.0-17.5); Hypochromasia Slight; MCH 30.6 pg (25.0-35.0); MCHC 32.5 g/dL (31.0-37.0); MCV 94.2 fL (80.0-100.0); Macrocytosis Slight; Mean Platelet Volume 17.6; RBC 2.88 m/uL (4.30-5.90); RDW 18.1 % (11.5-15.5)
[2019-11-13 08:29] LABS: Platelet Count 33 k/uL (150-450)
[2019-11-13 08:42] LABS: Calcium 8.3 mg/dL (8.4-10.2); Uric Acid 8.2 mg/dL (3.5-8.5)
[2019-11-13 08:51] LABS: Potassium 4.4 mmol/L (3.5-5.1)
[2019-11-13 08:52] LABS: Phosphorus 6.7 mg/dL (2.5-4.5)
[2019-11-13] MEDS: FUROSEMIDE 10 MG/ML 10 ML VIAL IV SCH (09:38)
[2019-11-13] MEDS: SODIUM CHLORIDE 0.65% NASAL SPRAY 44 ML BTL NASAL SCH ×4 (09:39→21:50)
[2019-11-13] MEDS: PSYLLIUM HUSK 100% 6 GM PACKET PO SCH (09:39)
[2019-11-13] MEDS: ATORVASTATIN 20 MG TAB PO SCH (09:40)
[2019-11-13] MEDS: PANTOPRAZOLE 40 MG TABLET PO SCH (09:40)
[2019-11-13] MEDS: HYDROXYUREA 500 MG CAP PO SCH (09:40)
[2019-11-13 10:21] LABS: Blast Cells # (M) 36.14 k/uL (0); Lymphocytes # (M) 2.26 k/uL (1.0-4.8); Monocytes # (M) 0.75 k/uL (0-1.0); Myelocytes # (M) 0.75 k/uL (0); Myelocytes % 1 %; Neutrophils # (M) 32.38 k/uL (1.3-7.7); Neutrophils % (M) 43 %; Nucleated Red Blood Cells 4 /100 WBC (0-0); Promyelocytes # (M) 3.77 k/uL (0); Promyelocytes % 5 %; Total Cells Counted 200; WBC 75.3 k/uL (3.8-10.6)
[2019-11-13 10:22] LABS: Mixed Population RBC Present; Poikilocytosis (M) Present; Polychromasia Present
[2019-11-13] MEDS ORDERED: SODIUM CHLORIDE 0.9% 50 ML BAG ONE (10:31)
[2019-11-13] MEDS ORDERED: DECITABINE IV ONE (10:31)
--- NOTE | 2019-11-13 11:16 | P.PN ---
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 In follow-up today patient is sitting in chair, states he had a bad night, denies side effects from Hydrea Objective - Vital Signs Vital signs: Vital Signs Temp 97.7 F 11/13/19 07:00 Pulse 65 11/13/19 07:00 Resp 17 11/13/19 07:00 BP 113/63 11/13/19 07:00 Pulse Ox 92 L 11/13/19 07:00 Intake & Output 11/12/19 11/13/19 11/13/19 18:59 06:59 18:59 Intake Total 870 100 180 Output Total 3000 25 Balance -2130 75 180 Intake: Intake, IV Titration 0 Amount Lactated Ringers 1,000 ml 0 @ 125 mls/hr IV .Q8H ELISA Rx#:[id number] Oral 870 100 180 Output: Urine 3000 25 Other: Voiding Method Urinal # Voids 150 2 # Bowel Movements 1 - Constitutional General appearance: Present: average body habitus, cooperative, mild distress - EENT Eyes: Present: anicteric sclerae, EOMI ENT: Present: hearing grossly normal - Respiratory Details: resp even and unlabored - Cardiovascular Heart sounds: normal: S1, S2 Abnormal Heart Sounds: Present: systolic murmur - Peripheral edema leg Peripheral Edema: bilateral: Trace - Gastrointestinal General gastrointestinal: Present: normal bowel sounds, soft - Integumentary Integumentary: Present: pale - Neurologic Neurologic: Present: CNII-XII intact - Musculoskeletal Musculoskeletal: Present: generalized weakness - Psychiatric Psychiatric: Present: A&O x's 3, appropriate affect, intact judgment & insight - Labs CBC & Chem 7: 11/13/19 07:32 11/13/19 07:32 Labs: Abnormal Lab Results - Last 24 Hours (Table) 11/13/19 11/13/19 Range/Units 07:32 07:32 WBC 75.3 H* (3.8-10.6) k/uL RBC 2.88 L (4.30-5.90) m/uL Hgb 8.8 L (13.0-17.5) gm/dL Hct 27.1 L (39.0-53.0) % RDW 18.1 H (11.5-15.5) % Plt Count 33 L (150-450) k/uL Blast Cells % 48 H* % Neutrophils # (Manual) 32.38 H (1.3-7.7) k/uL Myelocytes # (Manual) 0.75 H (0) k/uL Promyelocytes # (Man) 3.77 H (0) k/uL Blast Cells # (Man) 36.14 H (0) k/uL Nucleated RBCs 4 H (0-0) /100 WBC Chloride 109 H (98-107) mmol/L BUN 43 H (9-20) mg/dL Creatinine 1.61 H (0.66-1.25) mg/dL Calcium 8.3 L (8.4-10.2) mg/dL Phosphorus 6.7 H (2.5-4.5) mg/dL Microbiology - Last 24 Hours (Table) 11/08/19 01:29 Blood Culture - Preliminary Blood No Growth after 120 hours - Imaging and Cardiology Chest x-ray: report reviewed Assessment and Plan (1) 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 Bone marrow biopsy and aspirate 10/29, pathology revealing transformation to AML. Patient treated for spontaneous tumor lysis. No further evidence to suggest ongoing at this time. Hydrea currently 500 mg 3 times a day. Patient is not having any side effects. Dr. Patel discussed with pt that the hydrea is not producing the response needed to be able to proceed forward with any other treatments. Pt would have to receive chemo to get the get the WBC down so he can be placed on marine oil terminal superintendent treatment. Pt was told that with his type of AML (transformed from MDS) is more difficult to treat and response is about 30%. He states that he understands that depth and duration of response is unknown and it may not have any effect at all. He knows the only cure is bone marrow transplant and he is not a candidate for that. We discussed risks of treatment including need for transfusions, low WBC and significant risk for infection. He agreed to move forward I did speak with pt to update her on his decisions. Spoke with Public Health Nutritionist, pt will need rehab on DC. Current Visit: Yes Status: Acute Priority: High Code(s): C92.00 - ACUTE MYELOBLASTIC LEUKEMIA, NOT HAVING ACHIEVED REMISSION SNOMED Code(s): 36857575 (2) Anemia Narrative/Plan: Transfuse with irradiated blood products Transfuse for hemoglobin less than 7 unless symptomatic, hemoglobin 8.8 today Current Visit: Yes Status: Chronic Priority: Medium Code(s): D64.9 - ANEMIA, UNSPECIFIED SNOMED Code(s): 997944459 (3) Thrombocytopenia Narrative/Plan: Transfuse for platelet count less than 10,000 unless symptomatic. Platelets 33,000. No aspirin, NSAIDs or anticoagulation for platelet count less than 50,000 Current Visit: Yes Status: Chronic Priority: Medium Code(s): D69.6 - THR OMBOCYTOPENIA, UNSPECIFIED SNOMED Code(s): 290863759 (4) Fever Narrative/Plan: fever pattern has abated, completing course of antibiotics Current Visit: Yes Status: Acute Priority: High Code(s): R50.9 - FEVER, UNSPECIFIED SNOMED Code(s): 578075876 Plan: Attests: I have seen and exapmined pt, performed H&P, developed impression and plan of care, discussed with dictator. Agree with documentation, documented as a scribe Time with Patient: Greater than 30
--- NOTE | 2019-11-13 14:20 | P.CRDCN ---
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 He follows in the office with Dr. Hart. We have been asked to see in consultation for heart failure. He is seen and examined sitting up in the chair in no acute distress. He initially presented to the hospital 5 days ago with symptoms of generalized weakness, fever and cough. He has a history of myelodysplastic syndrome in 2014 and at that time opted for close observation. 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 Since admission he has undergone 2 transfusions of PRBC's. Initial chest xray showed left and right pleural effusions improved compared to previous with questioning interstitial markings and blunting of the costophrenic angles. After being admitted to the hospital for 4 days and receiving multiple IV antibiotics and IV fluids along with blood transfusion and repeat chest x-ray was performed revealing mild congestive heart failure with pleural effusions worsening since previous exam. He was started on IV Lasix by the primary care team. Repeat chest x-ray last night revealed pulmonary edema and pleural fluid increased from the exam taken yesterday morning. The patient is seen and examined sitting up in the chair. H e complains of feeling extremely weak and fatigued. He denies significant shortness of breath. He has no chest pain, dizziness or palpitations. He underwent an echocardiogram on this admission revealing preserved LV systolic function with ejection fraction 50-55% with moderate aortic stenosis and a mean gradient of 21 mmHg with moderate pulmonary hypertension and an RVSP of 45 mmHg. DIAGNOSTICS EKG reveals paced rhythm with underlying atrial fibrillation. Laboratory reviewed, WBC 75.3, hgb 8.8, plt 33, sodium 141, potassium 4.4, creatinine 1.61, troponin negative 3. Current cardiac medications include atorvastatin 20 mg daily. REVIEW OF SYSTEMS At the time of my exam: CONSTITUTIONAL: Denies fever or chills. CARDIOVASCULAR: Denies chest pain, shortness of breath, orthopnea, PND or pa lpitations. RESPIRATORY: Denies cough. GASTROINTESTINAL: Denies abdominal pain, diarrhea, constipation, nausea or vomiting. MUSCULOSKELETAL: Denies myalgias. NEUROLOGIC: Denies numbness, tingling or weakness. ENDOCRINE: Denies fatigue, weight change, polydipsia or polyurina. GENITOURINARY: Denies burning, hematuria or urgency with micturation. HEMATOLOGIC: Denies history of anemia or bleeding. PHYSICAL EXAMINATION Blood pressure 113/63 heart rate 65 afebrile and maintaining oxygen saturation on nasal cannula. CONSTITUTIONAL: No apparent distress. HEENT: Head is normocephalic. Pupils are equal, round. Sclerae anicteric. Mucous membranes of the mouth are moist. No JVD. No carotid bruit. CHEST EXAMINATION: Lungs are clear to auscultation. No chest wall tenderness is noted on palpation or with deep breathing. Diminished bilaterally. HEART EXAMINATION: Irregular rate and rhythm. S1, S2 heard. Systolic ejection murmur at the base, no gallops or rub. ABDOMEN: Soft, nontender. Positive bowel sounds. EXTREMITIES: 2+ peripheral pulses, no lower extremity edema and no calf tenderness. NEUROLOGIC EXAMINATION: Patient is awake, alert and oriented x3. ASSESSMENT Fluid overload secondary to fluid administration, resolved with IV diuretics per PCP Acute myeloid leukemia with prior myelodysplasia Leukocytosis Anemia Thrombocytopenia Underlying coronary artery disease status post PCI, no longer on antiplatelet secondary to thrombocytopenia Chronic persistent atrial fibrillation on long-term anticoagulation secondary to thrombocytopenia Permanent pacemaker implantation secondary to tachybradycardia syndrome PLAN On exam pt appears quite dry and volume depleted. Discontinue IV diuresis and initiate oral lasix 20 mg BID. Ongoing medical management of AML. Thank you kindly for this consultation. Nurse Practitioner note has been reviewed, I agree with a documented findings a nd plan of care. Patient was seen and examined. Past Medical History Past Medical History: Atrial Fibrillation, Atrial Flutter, Blood Disorder, Coronary Artery Disease (CAD), Cancer, GERD/Reflux, Hyperlipidemia, Hypertension, Osteoarthritis (OA) Additional Past Medical History / Comment(s): CHRONIC LOW PLATELETS-MDS, leukemia History of Any Multi-Drug Resistant Organisms: None Reported Past Surgical History: Appendectomy, Heart Catheterization With Stent Additional Past Surgical History / Comment(s): pilonidal cyst surg. COLONOSCOPY. BONE MARROW BX-12/28, 10/28. stents x 2 2012. pacemarker january 2019 Past Anesthesia/Blood Transfusion Reactions: No Reported Reaction Date of Last Stent Placement:: September 2012 Past Psychological History: No Psychological Hx Reported Smoking Status: Former smoker, Never smoker Past Alcohol Use History: None Reported Additional Past Alcohol Use History / Comment(s): QUIT SMOKING 40 YEARS AGO Past Drug Use History: None Reported - Past Family History Mother Family Medical History: No Reported History Additional Family Medical History / Comment(s): at age 97 Father Family Medical History: Cancer Additional Family Medical History / Comment(s): kidney cancer-drowned at age 77 Medications and Allergies Home Medications Medication Instructions Recorded Confirmed Type Terazosin [Hytrin] 5 mg PO DAILY 03/28/14 11/08/19 History Atorvastatin Calcium [Lipitor] 20 mg PO DAILY 11/08/19 11/08/19 History Hydroxyurea [Hydrea] 500 mg PO TID #90 capsule 11/11/19 Rx Allergies Allergy/AdvReac Type Severity Reaction Status Date / Time Penicillins Allergy Rash/Hives Verified 11/08/19 08:10 Sulfa (Sulfonamide Allergy Rash/Hives Verified 11/08/19 08:10 Antibiotics) Physical Exam Vitals: Vital Signs Temp Pulse Resp BP BP Pulse Ox 11/13/19 07:00 97.7 F 65 17 113/63 92 L 11/13/19 03:21 98.5 F 24 11/13/19 01:30 100 F H 66 20 126/63 92 L 11/12/19 23:15 24 11/12/19 21:42 60 121/63 11/12/19 19:30 97.8 F 75 20 146/66 92 L 11/12/19 13:36 98.4 F 65 16 130/65 92 L Intake and Output 11/12/19 11/13/19 11/13/19 22:59 06:59 14:59 Intake Total 450 100 180 Output Total 25 Balance 425 100 180 Intake: Intake, IV Titration 0 Amount Lactated Ringers 1,000 ml 0 @ 125 mls/hr IV .Q8H [facility] Rx#:[id number] Oral 450 100 180 Output: Urine 25 Other: Voiding Method Urinal # Voids 1 2 Results 11/13/19 07:32 11/13/19 07:32 CBC 11/13/19 Range/Units 07:32 WBC 75.3 H* (3.8-10.6) k/uL RBC 2.88 L (4.30-5.90) m/uL Hgb 8.8 L (13.0-17.5) gm/dL Hct 27.1 L (39.0-53.0) % Plt Count 33 L (150-450) k/uL Comprehensive Metabolic Panel 11/13/19 Range/Units 07:32 Sodium 141 (137-145) mmol/L Potassium 4.4 (3.5-5.1) mmol/L Chloride 109 H (98-107) mmol/L Carbon Dioxide 22 (22-30) mmol/L BUN 43 H (9-20) mg/dL Creatinine 1.61 H (0.66-1.25) mg/dL Glucose 97 (74-99) mg/dL Calcium 8.3 L (8.4-10.2) mg/dL Current Medications Generic Name Dose Route Start Last Admin Trade Name Freq PRN Reason Stop Dose Admin Acetaminophen 650 mg 11/08/19 03:56 11/13/19 01:45 Tylenol Tab PO 650 mg Q4HR PRN Administration Fever and/ or Pain Atorvastatin Calcium 20 mg 11/08/19 11:45 11/13/19 09:40 Lipitor PO 20 mg DAILY ELISA Administration Hydroxyurea 500 mg 11/09/19 14:00 11/13/19 09:40 Hydrea PO 500 mg TID ELISA Administration Ceftriaxone Sodium 1 gm/ 50 mls @ 100 mls/hr 11/09/19 02:54 11/13/19 03:18 Sodium Chloride IVPB 100 mls/hr Q24H ELISA Administration Miscellaneous Information 1 each 11/08/19 11:23 Potassium Per Protocol MISCELLANE DAILY PRN Per Protocol Protocol Pantoprazole Sodium 40 mg 11/11/19 09:00 11/13/19 09:40 Protonix PO 40 mg DAILY ELISA Administration Psyllium Hydrophilic Mucilloid 6 gm 11/11/19 12:30 11/13/19 09:39 Metamucil PO 6 gm DAILY ELISA Administration Sodium Chloride 2 spray 11/12/19 13:00 11/13/19 09:39 Deep Sea NASAL 2 spray QID ELISA Administration Intake and Output 11/12/19 11/13/19 11/13/19 22:59 06:59 14:59 Intake Total 450 100 180 Output Total 25 Balance 425 100 180 Intake: Intake, IV Titration 0 Amount Lactated Ringers 1,000 ml 0 @ 125 mls/hr IV .Q8H [facility] Rx#:[id number] Oral 450 100 180 Output: Urine 25 Other: Voiding Method Urinal # Voids 1 2 11/13/19 07:32 11/13/19 07:32
[2019-11-13] MEDS: ONDANSETRON 16 MG in SODIUM CHLORIDE 0.9% 50 ML IVPB SCH (14:43)
[2019-11-13] MEDS: FUROSEMIDE 20 MG TAB PO SCH (14:46)
[2019-11-13] MEDS: IN SODIUM CHLORIDE 0.9% IV SCH (15:20)
--- NOTE | 2019-11-13 16:36 | US ---
EXAMINATION TYPE: US kidneys/renal and bladder DATE OF EXAM: 11/13/2019 COMPARISON: NONE CLINICAL HISTORY: RF. EXAM MEASUREMENTS: Right Kidney: 14.5 x 4.8 x 4.8 cm Left Kidney: 13.3 x 5.9 x 5.3 cm Right Kidney: Simple appearing cyst measuring 3.5 x 3.8 x 4.1cm Left Kidney: No hydronephrosis or masses seen Bladder: isoechoic mass measuring 2.0 x 2.8 x 2.0cm IMPRESSION: 1. Intra urinary bladder mass with vascularity. Additional workup for neoplasm is recommended. 2. Superior pole right renal cyst. A Yellow level critical message alert has been initiated for Stacie Womack MD~[id number] via the [employer] Critical Results System on 11/13/2019 4:34 PM. This message alert has been sent to Stacie Womack MD~[id number] via the preferences provided by the clinician for the receipt of Radiology Critical Findin gs. Message ID [id number].
--- NOTE | 2019-11-13 21:01 | CONS ---
CONSULTATION REASON FOR CONSULT: Renal failure. HISTORY OF PRESENT ILLNESS: The patient is a 74-year-old male who has acute myeloid leukemia as a transformation from myelodysplasia. He was admitted to the hospital with fever, weakness and shortness of breath. COVID-19 test was negative. Patient denies any prior history of kidney diseases. He was noted to have a creatinine of 1.5 on initial admission. It did go down to 1.48 and now it is 1.6. Review of previous labs shows a creatinine of 1.3 and 1.0 in August of 2019. Patient has a history of CHF. He also had significant lower extremity edema and has received IV Lasix. Blood pressures have been slightly on the lower side but not significantly low; mostly 102 to 107 mmHg. Patient has been voiding. He denies any significant urinary symptoms. He was maintained on IV Lasix 80 mg q.12 hours. He states his breathing has improved. Patient has not received any IV contrast recently. PAST MEDICAL HISTORY: Past medical history is significant for atrial fibrillation, myelodysplasia, now AML, coronary artery disease, gastroesophageal reflux disease, hyperlipidemia, osteoarthritis, thrombocytopenia. PAST SURGICAL HISTORY: Appendectomy, cardiac catheterization, coronary stent placement, colonoscopy, bone marrow biopsy, pacemaker placement, pilonidal cyst surgery. SOCIAL HISTORY: Negative for drug abuse or alcohol abuse. Patient is a former smoker. REVIEW OF SYSTEMS: As per HPI. MEDICATIONS: Medications at home prior to admission included Hytrin and Lipitor. ALLERGIES: ALLERGIES include PENICILLIN and SULFA causes rash and hives. PHYSICAL EXAMINATION: Patient is comfortable, awake, alert, oriented x3, not in any acute distress. Blood pressure was 113/63, heart rate 65 per minute. He is afebrile. EXAMINATION OF THE HEART: S1 and S2. EXAMINATION OF LUNGS: Bilateral breath sounds are heard. ABDOMEN: Soft, non-tender. Examination of lower extremities shows trace edema bilaterally. L[employer] ENGINEER exam is grossly intact. LABS: Labs show sodium 141, potassium 4.4, chloride 109, BUN 43, creatinine 1.61, hemoglobin 8.8, white cell count 75.3, platelet count 33,000. Significant blast cells are noted. Albumin 2.7, phosphorus 4.4, uric acid 7.6. ASSESSMENT: 1. Acute kidney injury, most likely cardiorenal, currently nonoliguric. Rule out urine retention. Patient has received significant dose of IV Lasix. This has now been changed to p.o. His volume status has improved. He can continue with the oral Lasix. There are no nephrotoxic agents on board. I will check an ultrasound of the kidneys as well as a post-void residual. UA was quite benign-appearing on 11/08/2019. I will repeat another urinalysis. No evidence of tumor lysis syndrome. 2. Chronic kidney disease, NKF stage 3. Previous creatinine has been 1.4 and 1.3 mg/dL in 2019; however, lowest creatinine 1.05 on 09/05/2019. Etiology is mostly nephrosclerosis. 3. Cardiomyopathy with moderate pulmonary hypertension, ejection fraction 55% to 50%. PLAN: May continue with current dose of Lasix. Check post-void residual. Check ultrasound of the kidneys. Repeat labs in a.m. Avoid nephrotoxic agents. Avoid significant hypotension. Repeat urinalysis. Thank you for this consultation. Will continue to follow the patient with you during his hospitalization. MMODL / IJN: [id number] /
--- NOTE | 2019-11-13 23:01 | P.PN ---
Progress Note - Text Progress Note Date: 11/13/19 Chief Complaint: Short of breath History of presenting complaint: This is a pleasant 74-year-old patient of Dr. Watson gonzales. Chronic stable medical conditions include coronary artery disease with stent, atrial flutter fibrillation, GERD, hypertension, osteoarthritis, myelodysplastic syndrome with chronically low platelets. Patient has been short of breath for a while. Does have a cough with clear sputum. Has been having edema. Decreased appetite. Having bowel movements. Tired rundown. Also having fevers. Patient has followed up with Dr. Hawk from hematology. Has had previous bone marrow biopsies. 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 Empirically on ceftriaxone. Admitted with AML transformation. Started on hydroxyurea for tumor lysis syndrome and IV ceftriaxone. Patient received a unit of packed red blood cell. lower extremity swelling. [place] to be third spacing. IV fluids cutback. Given IV Lasix. Today-getting IV Lasix. Edema is gone on. Eating some food. Sitting up in a chair. Tired. Per oncology less than satisfactory response to hydroxyurea. Review of systems: Was done for constitutional, cardiovascular, GI, pulmonary. relevant finding as above Active Medications Acetaminophen (Tylenol Tab) 650 mg PO Q4HR PRN PRN Reason: Fever and/ or Pain Last Admin: 11/13/19 01:45 Dose: 650 mg Documented by: Atorvastatin Calcium (Lipitor) 20 mg PO DAILY [facility] Last Admin: 11/13/19 09:40 Dose: 20 mg Documented by: Furosemide (Lasix) 20 mg PO BID@0900,1600 [facility] Last Admin: 11/13/19 14:46 Dose: 20 mg Documented by: Ceftriaxone Sodium 1 gm/ (Sodium Chloride) 50 mls @ 100 mls/hr IVPB Q24H [facility] Last Admin: 11/13/19 03:18 Dose: 100 mls/hr Documented by: Non-Formulary Medication 1 (each/ Sodium Chloride) 58 mls @ 58 mls/hr IV Q24H [facility] Stop: 11/17/19 16:59 Last Admin: 11/13/19 15:20 Dose: 58 mls/hr Documented by: Ondansetron HCl 16 mg/ Sodium (Chloride) 58 mls @ 232 mls/hr IVPB Q24H [facility] Stop: 11/17/19 16:14 Last Admin: 08/04/20 14:43 Dose: 232 mls/hr Documented by: Miscellaneous Information (Potassium Per Protocol) 1 each MISCELLANE DAILY PRN; Protocol PRN Reason: Per Protocol Pantoprazole Sodium (Protonix) 40 mg PO DAILY [facility] Last Admin: 11/13/19 09:40 Dose: 40 mg Documented by: Psyllium Hydrophilic Mucilloid (Metamucil) 6 gm PO DAILY [facility] Last Admin: 11/13/19 09:39 Dose: 6 gm Documented by: Sodium Chloride (Deep Sea) 2 spray NASAL QID [facility] Last Admin: 11/13/19 21:50 Dose: 2 spray Documented by: Physical examination: VITAL SIGNS: 97.7, 65, 17, 130 no 623, 92% on 3 L GENERAL: Sitting up in a chair, tired EYES: Pupils equal. Conjunctiva pale HEENT: External appearance of nose and ears normal, oral cavity grossly normal. NECK: JVD unable to assess; masses not palpable. HEART: First and second heart sounds are normal; decreased edema LUNGS: Respiratory rate increased, decreased breath sounds, some crackles. ABDOMEN: Soft, nontender, liver spleen not palpable, no masses palpable. PSYCH: AO 3 INVESTIGATIONS, reviewed in the clinical context: White count 75.3 hemoglobin 8.8. She is 33 potassium 4.4 creatinine 1.61 Previous testing White count 79.1 hemoglobin 7.3 platelets 30 blast cells 35% increased neut rophils, lymphocytes ProTime 12.5 potassium 3.2 Bun 22 creatinine 1.6 to ferritin 2958 bilirubin 2 alkaline phosphatase 156 LDH 3736 CRP 59.8 albumin 3.1 pro calcitonin 0.55 uric acid 10.7 EKG tracing personally reviewed by me-ventricle paced rhythm Chest x-ray film personally reviewed by me-prominent interstitium cannot rule out pleural effusion Chest x-ray film personally reviewed by me-shows infiltrates and pulmonary edema and pleural effusion. 2-D echocardiogram-a 50-55%, moderate aortic stenosis, moderate pulmonary hypertension Assessment: -Myelodysplastic syndrome that seems to have transformed into AML likely cause of his fevers- slow to respond -Persistent atrial flutter fibrillation rate controlled -Moderate aortic stenosis -Acute congestive heart failure exacerbation from combination of CHF diastolic dysfunction and aortic stenosis -Pacemaker -Coronary artery disease with stent -Worsening anemia thrombocytopenia-received a unit of blood -Hyperlipidemia -Essential hypertension -Primary osteoarthritis -Thrombocytopenia from MDS -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 On IV ceftriaxone. Has been changed over to by mouth Lasix. Per oncology prognosis not good. Patient wishes to continue with treatment. Follow closely.
[2019-11-14 06:34] LABS: Anisocytosis Slight; HCT 22.4 % (39.0-53.0); HGB 7.5 gm/dL (13.0-17.5); Hypochromasia Slight; MCH 31.6 pg (25.0-35.0); MCHC 33.3 g/dL (31.0-37.0); MCV 94.9 fL (80.0-100.0); Macrocytosis Slight; Mean Platelet Volume 17.6; RBC 2.36 m/uL (4.30-5.90); RDW 18.2 % (11.5-15.5)
[2019-11-14 06:39] LABS: Uric Acid 9.6 mg/dL (3.5-8.5)
[2019-11-14 07:09] LABS: Band Neutrophils % 4 %; Blast Cells # (M) 21.42 k/uL (0); Lymphocytes # (M) 16.58 k/uL (1.0-4.8); Metamyelocytes # (M) 1.38 k/uL (0); Metamyelocytes % 2 %; Monocytes # (M) 6.91 k/uL (0-1.0); Myelocytes # (M) 4.84 k/uL (0); Myelocytes % 7 %; Neutrophils % (M) 24 %; Nucleated Red Blood Cells 13 /100 WBC (0-0); Total Cells Counted 200; WBC 69.1 k/uL (3.8-10.6)
[2019-11-14 07:10] LABS: Hypochromasia (M) Present; Platelet Count 28 k/uL (150-450); Polychromasia Present
[2019-11-14 07:11] LABS: Poikilocytosis (M) Present
[2019-11-14] MEDS: PSYLLIUM HUSK 100% 6 GM PACKET PO SCH (07:51)
[2019-11-14] MEDS: ATORVASTATIN 20 MG TAB PO SCH (07:51)
[2019-11-14] MEDS: PANTOPRAZOLE 40 MG TABLET PO SCH (07:52)
[2019-11-14] MEDS: SODIUM CHLORIDE 0.65% NASAL SPRAY 44 ML BTL NASAL SCH ×4 (07:53→23:44)
[2019-11-14] MEDS: FUROSEMIDE 20 MG TAB PO SCH ×2 (07:53→16:15)
[2019-11-14] MEDS ORDERED: RASBURICASE 6 MG in SODIUM CHLORIDE 0.9% 46 ML IV ONE (08:31)
[2019-11-14 09:05] LABS: Albumin 2.5 g/dL (3.5-5.0); Calcium 7.6 mg/dL (8.4-10.2); Potassium 4.6 mmol/L (3.5-5.1); Total Protein 6.3 g/dL (6.3-8.2)
[2019-11-14] MEDS ORDERED: DECITABINE IV ONE (10:46)
[2019-11-14] MEDS ORDERED: SODIUM CHLORIDE 0.9% 50 ML BAG ONE (10:46)
--- NOTE | 2019-11-14 11:35 | P.PN ---
Subjective Progress Note Date: 11/14/19 Principal diagnosis: leukocytosis, MDS transformation to acute myeloid leukemia In f/u today pt is sitting in chair, denies any oral irritation, sore throat, nausea, he had a solid BM this AM after having his metamucil resumed, denies any bleeding, swelling in his legs is down with compression socks-he had pain when the legs were wrapped. Objective - Vital Signs Vital signs: Vital Signs Temp 98.2 F 11/14/19 04:00 Pulse 64 11/14/19 10:45 Resp 24 11/14/19 05:16 BP 116/56 11/14/19 10:45 Pulse Ox 93 L 11/14/19 04:40 Intake & Output 11/13/19 11/14/19 11/14/19 18:59 06:59 18:59 Intake Total 180 1180 Output Total 100 650 Balance 80 530 Intake: Oral 180 1180 Output: Urine 100 650 Other: Voiding Method Urinal Urinal Urinal # Voids 1 4 - Constitutional General appearance: Present: average body habitus, cooperative, no acute distress - EENT Eyes: Present: anicteric sclerae, EOMI ENT: Present: hearing grossly normal, normal oropharynx - Respiratory Respiratory: bilateral: CTA - Cardiovascular Rhythm: regular Heart sounds: normal: S1, S2 Abnormal Heart Sounds: Present: systolic murmur - Peripheral edema leg Peripheral Edema: bilateral: Trace - Gastrointestinal General gastrointestinal: Present: normal bowel sounds, soft - Integumentary Integumentary: Present: pale - Neurologic Neurologic: Present: CNII-XII intact - Musculoskeletal Musculoskeletal: Present: generalized weakness - Psychiatric Psychiatric: Present: A&O x's 3, appropriate affect, intact judgment & insight - Labs CBC & Chem 7: 11/14/19 06:14 11/14/19 06:14 Labs: Abnormal Lab Results - Last 24 Hours (Table) 11/14/19 11/14/19 11/14/19 Range/Units 06:14 06:14 06:14 WBC 69.1 H* (3.8-10.6) k/uL RBC 2.36 L (4.30-5.90) m/uL Hgb 7.5 L (13.0-17.5) gm/dL Hct 22.4 L (39.0-53.0) % RDW 18.2 H (11.5-15.5) % Plt Count 28 L (150-450) k/uL Blast Cells % 31 H* % Neutrophils # (Manual) 19.30 H (1.3-7.7) k/uL Lymphocytes # (Manual) 16.58 H (1.0-4.8) k/uL Monocytes # (Manual) 6.91 H (0-1.0) k/uL Metamyelocytes # (Man) 1.38 H (0) k/uL Myelocytes # (Manual) 4.84 H (0) k/uL Blast Cells # (Man) 21.42 H (0) k/uL Nucleated RBCs 13 H (0-0) /100 WBC Chloride 110 H (98-107) mmol/L BUN 49 H (9-20) mg/dL Creatinine 1.74 H (0.66-1.25) mg/dL Uric Acid 9.6 H (3.5-8.5) mg/dL Calcium 7.6 L (8.4-10.2) mg/dL Phosphorus 6.0 H (2.5-4.5) mg/dL AST 75 H (17-59) U/L Albumin 2.5 L (3.5-5.0) g/dL Microbiology - Last 24 Hours (Table) 11/08/19 01:29 Blood Culture - Final Blood No Growth after 144 hours Assessment and Plan (1) 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 Bone marrow biopsy and as pirate 10/29, pathology revealing transformation to AML. Patient treated for spontaneous tumor lysis prior to initiation of any therapy. He started dacogen yesterday. Uric acid and phos up, elitek ordered. Hydrea D/C'd as dacogen initiated. Pt will need rehab on DC. He will not be able to continue any treatment for AML while in rehab. Will get PT/OT to see pt and give exercises to do while sitting there. I told him he has to work at it Current Visit: Yes Status: Acute Priority: High Code(s): C92.00 - ACUTE MYELOBLASTIC LEUKEMIA, NOT HAVING ACHIEVED REMISSION SNOMED Code(s): 82959300 (2) Anemia Narrative/Plan: Transfuse with irradiated blood products Transfuse for hemoglobin less than 7 unless symptomatic, hemoglobin 7.5 today Current Visit: Yes Status: Chronic Priority: Medium Code(s): D64.9 - ANEMIA, UNSPECIFIED SNOMED Code(s): 015195657 (3) Thrombocytopenia Narrative/Plan: Transfuse for platelet count less than 10,000 unless symptomatic. Platelets 28,000. No aspirin, NSAIDs or anticoagulation for platelet count less than 50,000 Current Visit: Yes Status: Chronic Priority: Medium Code(s): D69.6 - THROM BOCYTOPENIA, UNSPECIFIED SNOMED Code(s): 336186299 (4) Fever Narrative/Plan: fever pattern has abated, completing course of antibiotics Current Visit: Yes Status: Acute Priority: High Code(s): R50.9 - FEVER, UNSPECIFIED SNOMED Code(s): 701140407 (5) Tumor lysis syndrome following antineoplastic drug therapy Narrative/Plan: Pt had spontaneous TLS on admit. He received 1st dacogen yesterday, labs + for TLS, elitek ordered today Current Visit: Yes Status: Acute Priority: High Code(s): E88.3 - TUMOR LYSIS SYNDROME; T45.1X5A - ADVERSE EFFECT OF ANTINEOPLASTIC AND IMMUNOSUP DRUGS, INIT SNOMED Code(s): 043618191 Plan: Supportive medications for chemo SE added
[2019-11-14] MEDS ORDERED: ONDANSETRON 4 MG/2 ML VIAL IVP PRN (11:38)
[2019-11-14] MEDS: SALT AND SODA MOUTHWASH 1,000 ML PO SCH ×4 (12:15→23:44)
[2019-11-14 12:45] VITALS: BMI 27.3
--- NOTE | 2019-11-14 15:23 | PN ---
PROGRESS NOTE Patient is seen for followup for acute kidney injury. Patient is currently sitting up in a bedside chair. His serum creatinine has increased further to 1.7. He has been voiding fairly well. Lasix has been changed to p.o. Patient is status post diuresis for CHF exacerbation. PHYSICAL EXAMINATION: On examination today, blood pressure was 101/56, heart rate 63 per minute. He is afebrile. EXAMINATION OF THE HEART: S1 and S2. EXAMINATION OF LUNGS: Bilateral breath sounds are heard. Decreased breath sounds at bases. ABDOMEN: Soft, non-tender. Examination of lower extremities shows edema 1+ bilaterally. F[employer]OMATIC exam is grossly intact. LABS: Labs show sodium 138, potassium 4.6, chloride 110, BUN 49, serum creatinine 1.74, phosphorus 6.0, hemoglobin 7.5, white cell count 69, platelet count 31,000. ASSESSMENT: 1. Acute kidney injury associated with hypotension and an element of cardiorenal. There was no evidence of urine retention. The ultrasound shows no hydronephrosis. Patient is status post recent diuresis. There was, however, a bladder mass noted on the ultrasound. We will proceed with urology consult. 2. Cardiomyopathy, ejection fraction of 50% to 55%, with mildly dilated left atrium and moderate pulmonary hypertension. 3. AML, being followed by Hematology. PLAN: Consult Urology for bladder mass. Consider [place] catheter placement. Continue to monitor post-voidal residuals. May continue with p.o. Lasix. If blood pressure remains significantly low, I will add midodrine. Avoid IV fluid administration. MMODL / IJN: [id number] /
[2019-11-14] MEDS: ONDANSETRON 16 MG in SODIUM CHLORIDE 0.9% 50 ML IVPB SCH (15:36)
[2019-11-14] MEDS: IN SODIUM CHLORIDE 0.9% IV SCH (16:04)
--- NOTE | 2019-11-14 22:12 | P.PN ---
Progress Note - Text Progress Note Date: 11/14/19 Chief Complaint: Short of breath History of presenting complaint: This is a pleasant 74-year-old patient of Dr. Watson gonzales. Chronic stable medical conditions include coronary artery disease with stent, atrial flutter fibrillation, GERD, hypertension, osteoarthritis, myelodysplastic syndrome with chronically low platelets. Patient has been short of breath for a while. Does have a cough with clear sputum. Has been having edema. Decreased appetite. Having bowel movements. Tired rundown. Also having fevers. Patient has followed up with Dr. Hawk from hematology. Has had previous bone marrow biopsies. 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 Empirically on ceftriaxone. Admitted with AML transformation. Started on hydroxyurea for tumor lysis syndrome and IV ceftriaxone. Patient received a unit of packed red blood cell. lower extremity swelling. [place] to be third spacing. IV fluids cutback. Given IV Lasix. Today-hydroxyurea discontinued by oncology and patient put on Dacogen. Does not like hospital food. Did eat some food. Sitting up in a chair. Daughter at the bedside. Edema is down. Tired.. Review of systems: Was done for constitutional, cardiovascular, GI, pulmonary. relevant finding as above Active Medications Acetaminophen (Tylenol Tab) 650 mg PO Q4HR PRN PRN Reason: Fever and/ or Pain Last Admin: 11/13/19 01:45 Dose: 650 mg Documented by: Atorvastatin Calcium (Lipitor) 20 mg PO DAILY [facility] Last Admin: 11/14/19 07:51 Dose: 20 mg Documented by: Furosemide (Lasix) 20 mg PO BID@0900,1600 [facility] Last Admin: 11/14/19 16:15 Dose: 20 mg Documented by: Ceftriaxone Sodium 1 gm/ (Sodium Chloride) 50 mls @ 100 mls/hr IVPB Q24H [facility] Last Admin: 11/14/19 03:54 Dose: 100 mls/hr Documented by: Non-Formulary Medication 1 (each/ Sodium Chloride) 58 mls @ 58 mls/hr IV Q24H [facility] Stop: 11/17/19 16:59 Last Admin: 11/14/19 16:04 Dose: 58 mls/hr Documented by: Ondansetron HCl 16 mg/ Sodium (Chloride) 58 mls @ 232 mls/hr IVPB Q24H [facility] Stop: 11/17/19 16:14 Last Admin: 11/14/19 15:36 Dose: 232 mls/hr Documented by: Miscellaneous Information (Potassium Per Protocol) 1 each MISCELLANE DAILY PRN; Protocol PRN Reason: Per Protocol Ondansetron HCl (Zofran) 4 mg IVP Q6HR PRN PRN Reason: Nausea And Vomiting Pantoprazole Sodium (Protonix) 40 mg PO DAILY [facility] Last Admin: 11/14/19 07:52 Dose: 40 mg Documented by: Psyllium Hydrophilic Mucilloid (Metamucil) 6 gm PO DAILY [facility] Last Admin: 11/14/19 07:51 Dose: 6 gm Documented by: Sodium Bicarbonate () 5 ml PO 5XD [facility] Last Admin: 11/14/19 20:58 Dose: 5 ml Documented by: Sodium Chloride (Deep Sea) 2 spray NASAL QID [facility] Last Admin: 11/14/19 20:58 Dose: 2 spray Documented by: Physical examination: VITAL SIGNS: 97.1, 63, 91 x 54, 95% on 3 L GENERAL: Sitting up in a chair, tired EYES: Pupils equal. Conjunctiva pale HEENT: External appearance of nose and ears normal, oral cavity grossly normal. NECK: JVD unable to assess; masses not palpable. HEART: First and second heart sounds are normal; decreased edema LUNGS: Respiratory rate increased, decreased breath sounds, ABDOMEN: Soft, nontender, liver spleen not palpable, no masses palpable. PSYCH: AO 3 INVESTIGATIONS, reviewed in the clinical context: White count 69.9 hemoglobin 7.5 platelets 28 potassium 4.6 creatinine 1.74 Previous testing White count 79.1 hemoglobin 7.3 platelets 30 blast cells 35% increased neutrophi ls, lymphocytes ProTime 12.5 potassium 3.2 Bun 22 creatinine 1.6 to ferritin 2958 bilirubin 2 alkaline phosphatase 156 LDH 3736 CRP 59.8 albumin 3.1 pro calcitonin 0.55 uric acid 10.7 EKG tracing personally reviewed by me-ventricle paced rhythm Chest x-ray film personally reviewed by me-prominent interstitium cannot rule out pleural effusion Chest x-ray film personally reviewed by me-shows infiltrates and pulmonary edema and pleural effusion. 2-D echocardiogram-a 50-55%, moderate aortic stenosis, moderate pulmonary hypertension Bladder ultrasound-showing intra-bladder mass. 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 Initially put on hydroxyurea. Then switch to Dacogen. -Persistent atrial flutter fibrillation rate controlled -Moderate aortic stenosis -Acute congestive heart failure exacerbation from combination of CHF diastolic dysfunction and aortic stenosis-improved -Pacemaker -Coronary artery disease with stent -Worsening anemia thrombocytopenia-received a unit of blood -Hyperlipidemia -Essential hypertension -Primary osteoarthritis -Thrombocytopenia from MDS -Possible tumor lysis syndrome, with hemolysis -Permanent pacemaker -Urinary bladder intraluminal mass urology consulted. Plan: Hydroxyurea discontinued. Put on Dacogen. PTOT on the case. Looking at rehab. Await input from urology. I'll get case is discussed with the patient and the daughter. Looking to going to rehab.
[2019-11-15] MEDS: ACETAMINOPHEN TAB 325 MG TAB PO PRN (02:52)
[2019-11-15] MEDS: SALT AND SODA MOUTHWASH 1,000 ML PO SCH ×4 (06:00→20:45)
[2019-11-15 07:13] LABS: Anisocytosis Slight; HCT 21.4 % (39.0-53.0); Hypochromasia Slight; MCH 30.9 pg (25.0-35.0); MCHC 32.5 g/dL (31.0-37.0); MCV 95.1 fL (80.0-100.0); Macrocytosis Slight; Mean Platelet Volume 17.4; RBC 2.26 m/uL (4.30-5.90); RDW 18.6 % (11.5-15.5)
[2019-11-15 07:14] LABS: Platelet Count 29 k/uL (150-450)
[2019-11-15 07:19] LABS: Albumin 2.5 g/dL (3.5-5.0); Calcium 7.7 mg/dL (8.4-10.2); Phosphorus 4.9 mg/dL (2.5-4.5); Potassium 4.3 mmol/L (3.5-5.1); Total Bilirubin 1.1 mg/dL (0.2-1.3); Total Protein 6.2 g/dL (6.3-8.2); Uric Acid 3.8 mg/dL (3.5-8.5)
[2019-11-15] MEDS: PSYLLIUM HUSK 100% 6 GM PACKET PO SCH (08:37)
[2019-11-15] MEDS: SODIUM CHLORIDE 0.65% NASAL SPRAY 44 ML BTL NASAL SCH ×4 (08:37→20:46)
[2019-11-15] MEDS: FUROSEMIDE 20 MG TAB PO SCH ×2 (08:37→16:22)
[2019-11-15] MEDS: ATORVASTATIN 20 MG TAB PO SCH (08:37)
[2019-11-15] MEDS: PANTOPRAZOLE 40 MG TABLET PO SCH (08:37)
[2019-11-15 10:30] LABS: Band Neutrophils % 1 %; Blast Cells # (M) 66.83 k/uL (0); Eosinophils # (M) 0.85 k/uL (0-0.7); Lymphocytes # (M) 2.54 k/uL (1.0-4.8); Metamyelocytes # (M) 0.85 k/uL (0); Metamyelocytes % 1 %; Monocytes # (M) 0.85 k/uL (0-1.0); Myelocytes # (M) 0.85 k/uL (0); Myelocytes % 1 %; Neutrophils % (M) 4 %; Nucleated Red Blood Cells 5 /100 WBC (0-0); Plasma Cells # (M) 0.85 k/uL (0); Plasma Cells % 1 %; Promyelocytes # (M) 9.31 k/uL (0); Promyelocytes % 11 %; Total Cells Counted 200; WBC 84.6 k/uL (3.8-10.6)
[2019-11-15 10:31] LABS: Polychromasia Present
[2019-11-15 10:32] LABS: Poikilocytosis (M) Present
[2019-11-15] MEDS ORDERED: SODIUM CHLORIDE 0.9% 50 ML BAG ONE (10:47)
[2019-11-15] MEDS ORDERED: DECITABINE IV ONE (10:47)
--- NOTE | 2019-11-15 12:47 | PN ---
PROGRESS NOTE Patient is seen for followup for acute kidney injury. He is currently resting in bed. Patient denies any significant complaints. Serum creatinine continues to add up slowly. It is at 1.89 today. Patient has had good urine output. His Lasix has been changed to p.o. Blood pressure had been on the lower side, but currently improved. No major complaints today. PHYSICAL EXAMINATION: Blood pressure is 117/66, heart rate 61 per minute, he is afebrile. Examination of the heart S1, S2. Examination of the lungs, decreased breath sounds at bases. Abdomen is soft, nontender. Examination of the lower extremities shows edema 1+ bilaterally. [employer] exam grossly intact. LABS: Show hemoglobin 7.0, white cell count 94.6, platelet count 29,000, sodium 138, potassium 4.3, BUN 54, creatinine 1.89. ASSESSMENT: 1. Acute kidney injury associated with hypotension and cardiorenal syndrome, maintained on oral Lasix. Serum creatinine again slightly up. There is no evidence of urine retention. No nephrotoxic agents on board. I will not make any changes. Continue with oral Lasix and repeat labs in a.m. Continue to avoid hypotension. 2. AML, being followed by Hematology with spontaneous tumor lysis syndrome earlier, status post Alertec. 3. Chronic kidney disease, previous creatinine around 1.3-1.4 mg/dL in January of 2019 with lowest creatinine 1.0 on 09/05/2019, mostly secondary to nephrosclerosis. 4. Cardiomyopathy, ejection fraction 50%-55% with moderate pulmonary hypertension. PLAN: Continue with current dose of Lasix. Repeat labs in a.m. MMODL / IJN: [id number] /
[2019-11-15] MEDS: ONDANSETRON 16 MG in SODIUM CHLORIDE 0.9% 50 ML IVPB SCH (14:37)
[2019-11-15] MEDS: IN SODIUM CHLORIDE 0.9% IV SCH (16:11)
--- NOTE | 2019-11-15 17:36 | P.PN ---
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 He has not been evaluated by PT yet. Objective - Vital Signs Vital signs: Vital Signs Temp 97.9 F 11/15/19 12:07 Pulse 61 11/15/19 12:07 Resp 18 11/15/19 12:07 BP 117/66 11/15/19 12:07 Pulse Ox 90 L 11/15/19 12:07 Intake & Output 11/14/19 11/15/19 11/15/19 18:59 06:59 18:59 Intake Total 600 800 Output Total 75 Balance 525 800 Weight 81.647 kg Intake: Oral 600 800 Output: Urine 75 Other: Voiding Method Urinal Urinal Urinal # Voids 3 - Constitutional General appearance: Present: average body habitus, cooperative, no acute distress - EENT Eyes: Present: anicteric sclerae, EOMI ENT: Present: hearing grossly normal, normal oropharynx - Respiratory Respiratory: bilateral: CTA - Cardiovascular Heart sounds: normal: S1, S2 Abnormal Heart Sounds: Present: systolic murmur - Peripheral edema leg Peripheral Edema: bilateral: Trace (compression stockings on) - Gastrointestinal General gastrointestinal: Present: normal bowel sounds, soft - Neurologic Neurologic: Present: CNII-XII intact - Musculoskeletal Musculoskeletal: Present: generalized weakness - Psychiatric Psychiatric: Present: A&O x's 3, appropriate affect, intact judgment & insight - Labs CBC & Chem 7: 11/15/19 06:27 11/15/19 06:27 Labs: Abnormal Lab Results - Last 24 Hours (Table) 11/15/19 11/15/19 Range/Units 06:27 06:27 WBC 84.6 H* (3.8-10.6) k/uL RBC 2.26 L (4.30-5.90) m/uL Hgb 7.0 L (13.0-17.5) gm/dL Hct 21.4 L (39.0-53.0) % RDW 18.6 H (11.5-15.5) % Plt Count 29 L (150-450) k/uL Blast Cells % 79 H* % Eosinophils # (Manual) 0.85 H (0-0.7) k/uL Metamyelocytes # (Man) 0.85 H (0) k/uL Myelocytes # (Manual) 0.85 H (0) k/uL Promyelocytes # (Man) 9.31 H (0) k/uL Blast Cells # (Man) 66.83 H (0) k/uL Plasma Cell # (Manual) 0.85 H (0) k/uL Nucleated RBCs 5 H (0-0) /100 WBC Chloride 108 H (98-107) mmol/L BUN 54 H (9-20) mg/dL Creatinine 1.89 H (0.66-1.25) mg/dL Calcium 7.7 L (8.4-10.2) mg/dL Phosphorus 4.9 H (2.5-4.5) mg/dL AST 64 H (17-59) U/L Alkaline Phosphatase 139 H (38-126) U/L Total Protein 6.2 L (6.3-8.2) g/dL Albumin 2.5 L (3.5-5.0) g/dL - Imaging and Cardiology abdomen/bladder ultrasound report reviewed Assessment and Plan (1) 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 Bone marrow biopsy and aspirate 10/29, pathology revealing transformation to AML. Patient treated for spontaneous tumor lysis prior to initiation of any therapy. He started dacogen Wed. Uric acid and phos yesterdeay, elitek given, repeat labs today WNL. Hydrea D/C'd as dacogen initiated. Pt will need rehab on DC if not string enough to manage at home. He will not be able to continue any treatment for AML while in rehab. He does understand this. Discussed case with PT. Need pt to get moving! Current Visit: Yes Status: Acute Priority: High Code(s): C92.00 - ACUTE MYELOBLASTIC LEUKEMIA, NOT HAVING ACHIEVED REMISSION SNOMED Code(s): 20766596 (2) Anemia Narrative/Plan: Transfuse with irradiated blood products Transfuse for hemoglobin less than 7 unless symptomatic, hemoglobin 7 today Current Visit: Yes Status: Chronic Priority: Medium Code(s): D64.9 - ANEMIA, UNSPECIFIED SNOMED Code(s): 049576231 (3) Thrombocytopenia Narrative/Plan: Transfuse for platelet count less than 10,000 unless symptomatic. Platelets 29,000. No aspirin, NSAIDs or anticoagulation for platelet count less than 50,000 Current Visit: Yes Status: Chronic Priority: Medium Code(s): D69.6 - THROMBOCYTOPENIA, UNSPECIFIED SNOMED Code(s): 530631475 (4) Fever Current Visit: Yes Status: Resolved Priority: High Code(s): R50.9 - FEVER, UNSPECIFIED SNOMED Code(s): 666271216 (5) Tumor lysis syndrome following antineoplastic drug therapy Narrative/Plan: Pt had spontaneous TLS on admit. He received 1st dacogen Tuesday, labs + for TLS, elitek given, labs WNL today. Will continue to monitor Current Visit: Yes Status: Acute Priority: High Code(s): E88.3 - TUMOR LYSIS SYNDROME; T45.1X5A - ADVERSE EFFECT OF ANTINEOPLASTIC AND IMMUNOSUP DRUGS, INIT SNOMED Code(s): 226167924 Plan: Supportive medications for chemo SE added
--- NOTE | 2019-11-15 18:04 | P.GSCN ---
History of Present Illness Consult date: 11/15/19 Reason for Consult: Bladder mass Requesting physician: Stacie Womack History of present illness: Mr. Bundy is a 74 year old male with a history of MDS. He was initially noted to have thrombocytopenia in 2014. Recent bone marrow biopsy hsa shown transformation to AML. He is now admitted with fever and generalized weakness. He denies dysuria and hematuria. He does report a 2 to three-month history of left lower quadrant/groin discomfort. The patient is known to me. 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 Review of Systems - Constitutional Reports fever, Reports weakness - Gastrointestinal Denies nausea, Denies vomiting - Genitourinary Denies dysuria, Denies hematuria Past Medical History Past Medical History: Atrial Fibrillation, Atrial Flutter, Blood Disorder, Coronary Artery Disease (CAD), Cancer, GERD/Reflux, Hyperlipidemia, Hypertension, Osteoarthritis (OA) Additional Past Medical History / Comment(s): CHRONIC LOW PLATELETS-MDS, leukemia History of Any Multi-Drug Resistant Organisms: None Reported Past Surgical History: Appendectomy, Heart Catheterization With Stent Additional Past Surgical History / Comment(s): pilonidal cyst surg. COLONOSCOPY. BONE MARROW BX-12/28, 10/28. stents x 2 2012. pacemarker january 2019 Past Anesthesia/Blood Transfusion Reactions: No Reported Reaction Date of Last Stent Placement:: September 2012 Past Psychological History: No Psychological Hx Reported Smoking Status: Former smoker, Never smoker Past Alcohol Use History: None Reported Additional Past Alcohol Use History / Comment(s): QUIT SMOKING 40 YEARS AGO Past Drug Use History: None Reported - Past Family History Mother Family Medical History: No Reported History Additional Family Medical History / Comment(s): at age 97 Father Family Medical History: Cancer Additional Family Medical History / Comment(s): kidney cancer-drowned at age 77 Medications and Allergies Home Medications Medication Instructions Recorded Confirmed Type Terazosin [Hytrin] 5 mg PO DAILY 03/28/14 11/08/19 History Atorvastatin Calcium [Lipitor] 20 mg PO DAILY 11/08/19 11/08/19 History Hydroxyurea [Hydrea] 500 mg PO TID #90 capsule 11/11/19 Rx Allergies Allergy/AdvReac Type Severity Reaction Status Date / Time Penicillins Allergy Rash/Hives Verified 11/08/19 08:10 Sulfa (Sulfonamide Allergy Rash/Hives Verified 11/08/19 08:10 Antibiotics) Surgical - Exam Vital Signs Temp Pulse Resp BP Pulse Ox 102.5 F H 90 18 142/73 94 L 11/08/19 01:09 11/08/19 01:09 11/08/19 01:09 11/08/19 01:09 11/08/19 01:09 - General well developed, well nourished, no distress - Respiratory normal respiratory effort - Genitourinary normal penis with no external lesions, testicles present right: scrotal mass/hydrocele (Small right hydrocele) - Psychiatric oriented to time, oriented to person, oriented to place, speech is normal, memory intact Results - Labs 11/15/19 06:27 11/15/19 06:27 Abnormal Lab Results - Last 24 Hours (Table) 11/15/19 11/15/19 Range/Units 06:27 06:27 WBC 84.6 H* (3.8-10.6) k/uL RBC 2.26 L (4.30-5.90) m/uL Hgb 7.0 L (13.0-17.5) gm/dL Hct 21.4 L (39.0-53.0) % RDW 18.6 H (11.5-15.5) % Plt Count 29 L (150-450) k/uL Blast Cells % 79 H* % Eosinophils # (Manual) 0.85 H (0-0.7) k/uL Metamyelocytes # (Man) 0.85 H (0) k/uL Myelocytes # (Manual) 0.85 H (0) k/uL Promyelocytes # (Man) 9.31 H (0) k/uL Blast Cells # (Man) 66.83 H (0) k/uL Plasma Cell # (Manual) 0.85 H (0) k/uL Nucleated RBCs 5 H (0-0) /100 WBC Chloride 108 H (98-107) mmol/L BUN 54 H (9-20) mg/dL Creatinine 1.89 H (0.66-1.25) mg/dL Calcium 7.7 L (8.4-10.2) mg/dL Phosphorus 4.9 H (2.5-4.5) mg/dL AST 64 H (17-59) U/L Alkaline Phosphatase 139 H (38-126) U/L Total Protein 6.2 L (6.3-8.2) g/dL Albumin 2.5 L (3.5-5.0) g/dL Diabetes panel 11/15/19 Range/Units 06:27 Sodium 138 (137-145) mmol/L Potassium 4.3 (3.5-5.1) mmol/L Chloride 108 H (98-107) mmol/L Carbon Dioxide 26 (22-30) mmol/L BUN 54 H (9-20) mg/dL Creatinine 1.89 H (0.66-1.25) mg/dL Glucose 95 (74-99) mg/dL Calcium 7.7 L (8.4-10.2) mg/dL AST 64 H (17-59) U/L ALT 17 (4-49) U/L Alkaline Phosphatase 139 H (38-126) U/L Total Protein 6.2 L (6.3-8.2) g/dL Albumin 2.5 L (3.5-5.0) g/dL Calcium panel 11/15/19 Range/Units 06:27 Calcium 7.7 L (8.4-10.2) mg/dL Phosphorus 4.9 H (2.5-4.5) mg/dL Albumin 2.5 L (3.5-5.0) g/dL Pituitary panel 11/15/19 Range/Units 06:27 Sodium 138 (137-145) mmol/L Potassium 4.3 (3.5-5.1) mmol/L Chloride 108 H (98-107) mmol/L Carbon Dioxide 26 (22-30) mmol/L BUN 54 H (9-20) mg/dL Creatinine 1.89 H (0.66-1.25) mg/dL Glucose 95 (74-99) mg/dL Calcium 7.7 L (8.4-10.2) mg/dL Adrenal panel 11/15/19 Range/Units 06:27 Sodium 138 (137-145) mmol/L Potassium 4.3 (3.5-5.1) mmol/L Chloride 108 H (98-107) mmol/L Carbon Dioxide 26 (22-30) mmol/L BUN 54 H (9-20) mg/dL Creatinine 1.89 H (0.66-1.25) mg/dL Glucose 95 (74-99) mg/dL Calcium 7.7 L (8.4-10.2) mg/dL Total Bilirubin 1.1 (0.2-1.3) mg/dL AST 64 H (17-59) U/L ALT 17 (4-49) U/L Alkaline Phosphatase 139 H (38-126) U/L Total Protein 6.2 L (6.3-8.2) g/dL Albumin 2.5 L (3.5-5.0) g/dL - Imaging CT scan - pelvis: report reviewed, image reviewed US - kidney/bladder: report reviewed, image reviewed Assessment and Plan (1) Calculus in bladder Current Visit: Yes Status: Acute Code(s): N21.0 - CALCULUS IN BLADDER SNOMED Code(s): 38766277 (2) Genitourinary x-ray or scan abnormality Current Visit: Yes Status: Acute Code(s): R93.89 - ABNORMAL FINDINGS ON DX IMAGING OF OTH BODY STRUCTURES SNOMED Code(s): 273659398 Plan: I have reviewed the patient's computed tomography scan performed in August 2019 as well as the recent ultrasound. Both show a right simple renal cyst as well as a possible bladder mass. The computed tomography scan shows multiple small bladder calculi. The bladder mass likely represents the patient's known in travesical prostatic median lobe. Cystoscopy could be performed to rule out urothelial carcinoma, though the benefit of this depends on his overall condition and AML prognosis. Time with Patient: Greater than 30
--- NOTE | 2019-11-15 20:03 | P.PN ---
Progress Note - Text Progress Note Date: 11/15/19 Chief Complaint: Short of breath History of presenting complaint: This is a pleasant 74-year-old patient of Dr. Watson gonzales. Chronic stable medical conditions include coronary artery disease with stent, atrial flutter fibrillation, GERD, hypertension, osteoarthritis, myelodysplastic syndrome with chronically low platelets. Patient has been short of breath for a while. Does have a cough with clear sputum. Has been having edema. Decreased appetite. Having bowel movements. Tired rundown. Also having fevers. Patient has followed up with Dr. Hawk from hematology. Has had previous bone marrow biopsies. 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 Empirically on ceftriaxone. Admitted with AML transformation. Started on hydroxyurea for tumor lysis syndrome and IV ceftriaxone. Patient received a unit of packed red blood cell. lower extremity swelling. [place] to be third spacing. IV fluids cutback. Given IV Lasix. As patient was not responding, hydroxyurea discontinued by oncology and patient put on Dacogen. Today-tired. Sitting up. Decreased edema. Getting Dacogen. Review of systems: Was done for constitutional, cardiovascular, GI, pulmonary. relevant finding as above Active Medications Acetaminophen (Tylenol Tab) 650 mg PO Q4HR PRN PRN Reason: Fever and/ or Pain Last Admin: 11/15/19 02:52 Dose: 650 mg Documented by: Atorvastatin Calcium (Lipitor) 20 mg PO DAILY [facility] Last Admin: 11/15/19 08:37 Dose: 20 mg Documented by: Furosemide (Lasix) 20 mg PO BID@0900,1600 [facility] Last Admin: 11/15/19 16:22 Dose: 20 mg Documented by: Ceftriaxone Sodium 1 gm/ (Sodium Chloride) 50 mls @ 100 mls/hr IVPB Q24H [facility] Last Admin: 11/15/19 02:52 Dose: 100 mls/hr Documented by: Non-Formulary Medication 1 (each/ Sodium Chloride) 58 mls @ 58 mls/hr IV Q24H [facility] Stop: 11/17/19 16:59 Last Admin: 11/15/19 16:11 Dose: 58 mls/hr Documented by: Ondansetron HCl 16 mg/ Sodium (Chloride) 58 mls @ 232 mls/hr IVPB Q24H [facility] Stop: 11/17/19 16:14 Last Admin: 11/15/19 14:37 Dose: 232 mls/hr Documented by: Miscellaneous Information (Potassium Per Protocol) 1 each MISCELLANE DAILY PRN; Protocol PRN Reason: Per Protocol Ondansetron HCl (Zofran) 4 mg IVP Q6HR PRN PRN Reason: Nausea And Vomiting Pantoprazole Sodium (Protonix) 40 mg PO DAILY [facility] Last Admin: 11/15/19 08:37 Dose: 40 mg Documented by: Psyllium Hydrophilic Mucilloid (Metamucil) 6 gm PO DAILY [facility] Last Admin: 11/15/19 08:37 Dose: 6 gm Documented by: Sodium Bicarbonate () 5 ml PO 5XD [facility] Last Admin: 11/15/19 16:23 Dose: 5 ml Documented by: Sodium Chloride (Deep Sea) 2 spray NASAL QID [facility] Last Admin: 11/15/19 16:23 Dose: 2 spray Documented by: Physical examination: VITAL SIGNS: 97.9, 61, 18, 117/76, 90% on 3 L GENERAL: Sitting up edge of the bed, tired EYES: Pupils equal. Conjunctiva pale HEENT: External appearance of nose and ears normal, oral cavity grossly normal. NECK: JVD unable to assess; masses not palpable. HEART: First and second heart sounds are normal; decreased edema LUNGS: Respiratory rate increased, decreased breath sounds, ABDOMEN: Soft, nontender, liver spleen not palpable, no masses palpable. PSYCH: AO 3 INVESTIGATIONS, reviewed in the clinical context: White count 84.6 hemoglobin 7 platelets 29 potassium 4.3 creatinine 1.89 phosphorus 4.9 Previous testing White count 79.1 hemoglobin 7.3 platelets 30 blast cells 35% increased neutrophils, lymphocytes ProTime 12.5 potassium 3.2 Bun 22 creatinine 1.6 to ferritin 2958 bilirubin 2 alkaline phosphatase 156 LDH 3736 CRP 59.8 albumin 3.1 pro calcitonin 0.55 uric acid 10.7 EKG tracing personally reviewed by me-ventricle paced rhythm Chest x-ray film personally reviewed by me-prominent interstitium cannot rule out pleural effusion Chest x-ray film personally reviewed by me-shows infiltrates and pulmonary edema and pleural effusion. 2-D echocardiogram-a 50-55%, moderate aortic stenosis, moderate pulmonary hypertension Bladder ultrasound-showing intra-bladder mass. 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 Initially put on hydroxyurea. Then switch to Dacogen.- Currently not responding -Persistent atrial flutter fibrillation rate controlled -Moderate aortic stenosis -Acute congestive heart failure exacerbation from combination of CHF diastolic dysfunction and aortic stenosis-improved -Pacemaker -Coronary artery disease with stent -Worsening anemia thrombocytopenia-received a unit of blood -Hyperlipidemia -Essential hypertension -Primary osteoarthritis -Thrombocytopenia from MDS -Possible tumor lysis syndrome, with hemolysis -Permanent pacemaker -Urinary bladder intraluminal mass urology consulted. -Hyperphosphatemia -Chronic kidney disease stage III Plan: Discussed with Dejah from oncology. Patient to receive Dacogen through Tuesday. Prognosis guarded. Possible rehab on Tuesday. Depending on clinical and hematological response.
[2019-11-16] MEDS: SALT AND SODA MOUTHWASH 1,000 ML PO SCH ×6 (00:05→23:55)
[2019-11-16 07:37] LABS: Anisocytosis Slight; HCT 21.6 % (39.0-53.0); Hypochromasia Slight; MCH 30.9 pg (25.0-35.0); MCHC 32.4 g/dL (31.0-37.0); MCV 95.5 fL (80.0-100.0); Macrocytosis Slight; Mean Platelet Volume 16.4; RBC 2.27 m/uL (4.30-5.90); RDW 18.6 % (11.5-15.5)
[2019-11-16 07:48] LABS: Platelet Count 34 k/uL (150-450)
[2019-11-16 07:49] LABS: Albumin 2.5 g/dL (3.5-5.0); Calcium 7.7 mg/dL (8.4-10.2); Phosphorus 4.9 mg/dL (2.5-4.5); Potassium 4.7 mmol/L (3.5-5.1); Total Protein 6.3 g/dL (6.3-8.2); Uric Acid 4.3 mg/dL (3.5-8.5)
[2019-11-16 08:56] LABS: Myelocytes % 1 %; Neutrophils % (M) 10 %; Promyelocytes % 2 %
[2019-11-16 08:57] LABS: Blast Cells # (M) 81.26 k/uL (0); Eosinophils # (M) 0.99 k/uL (0-0.7); Lymphocytes # (M) 4.96 k/uL (1.0-4.8); Monocytes # (M) 0.99 k/uL (0-1.0); Myelocytes # (M) 0.99 k/uL (0); Neutrophils # (M) 9.91 k/uL (1.3-7.7); Nucleated Red Blood Cells 4 /100 WBC (0-0); Poikilocytosis (M) Present; Promyelocytes # (M) 1.98 k/uL (0); Total Cells Counted 200; WBC 99.1 k/uL (3.8-10.6)
[2019-11-16] MEDS: ATORVASTATIN 20 MG TAB PO SCH (09:51)
[2019-11-16] MEDS: PANTOPRAZOLE 40 MG TABLET PO SCH (09:51)
[2019-11-16] MEDS: FUROSEMIDE 20 MG TAB PO SCH ×2 (09:51→17:58)
[2019-11-16] MEDS: PSYLLIUM HUSK 100% 6 GM PACKET PO SCH (09:53)
[2019-11-16] MEDS ORDERED: FUROSEMIDE 10 MG/ML 4 ML VIAL IV STA (10:10)
[2019-11-16] MEDS: SODIUM CHLORIDE 0.65% NASAL SPRAY 44 ML BTL NASAL SCH ×4 (10:28→20:40)
--- NOTE | 2019-11-16 11:42 | XR ---
EXAMINATION TYPE: XR chest 1V DATE OF EXAM: 11/16/2019 CLINICAL HISTORY: Difficulty breathing CHF progress study. TECHNIQUE: Single AP portable upright view of the chest is obtained. COMPARISON: Chest x-ray from 4 days earlier FINDINGS: Persistent and more prominent cardiomegaly. Worsening alveolar and interstitial opacities bilaterally. More prominent opacification left lower lung silhouetting left hemidiaphragm and heart b order on current study. No pneumothorax bilaterally. The right-sided pleural effusion. Osseous struct ures are intact. IMPRESSION: Suspect worsening CHF exacerbation as there is more prominent cardiomegaly with suspected moderate bilateral alveolar and interstitial edema. Cannot rule out underlying acute infiltrates, th ere is likely enlarging [id number] sized left pleural effusion. There is likely associated com pressive atelectasis.
--- NOTE | 2019-11-16 11:46 | PN ---
PROGRESS NOTE Patient is seen for followup for acute kidney injury. 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 Serum creatinine has been slowly edging up. It is up to 1.98 today. The patient received IV Lasix initially. His blood pressure had also been low, which is now improved. He has been voiding. Previous postvoid residual was not high. PHYSICAL EXAMINATION: Today, patient is short of breath. He is not in any pain. Blood pressure was 132/65, heart rate 63 per minute, he is afebrile. Examination of the heart S1, S2. Examination of the lungs, decreased breath sounds in the bases. Bilateral basal crackles are heard. Abdomen is soft, nontender. Examination of the lower extremities shows edema 1+ bilaterally. GRAIN ORIGINATION SPECIALIST exam grossly intact. LABS: Show hemoglobin 7.0, white cell count 99.1, platelet count 82,000. Sodium 136, potassium 4.7, chloride 107, BUN 60, creatinine 1.98, albumin 2.5. ASSESSMENT: 1. Acute kidney injury, cardiorenal as well as secondary to hypotension, nonoliguric. Renal function continues to worsen slowly. I will recheck another postvoid residual. I will give him a dose of IV Lasix as patient is in CHF. No nephrotoxic agents on board. Maintain accurate Is and Os. 2. CHF, acute on top of chronic, mainly diastolic, ejection fraction 50%-55% with moderate pulmonary hypertension. 3. Chronic kidney disease stage 3, baseline creatinine 1.3-1.4 in January 2019 with a creatinine as low as 1.0 on 09/05/2019. Etiology is nephrosclerosis. 4. AML, being followed by Hematology with spontaneous tumor lysis syndrome earlier, status post [QAMARKER]. PLAN: IV Lasix x1, check chest x-ray, repeat postvoid residual. MMODL / IJN: [id number] /
[2019-11-16 15:45] LABS: Magnesium 2.1 mg/dL (1.6-2.3); Phosphorus 5.1 mg/dL (2.5-4.5)
[2019-11-16 15:46] LABS: INR 1.3 (<1.2); Partial Thromboplastin Time 26.4 sec (22.0-30.0)
[2019-11-16 17:32] LABS: Appearance,Urine Cloudy (Clear); Bacteria,Urine Rare /hpf; Bilirubin,Urine Negative (Negative); Blood,Urine Negative (Negative); Color,Urine Yellow; Glucose,Urine (UA) Negative (Negative); Hyaline Casts,Urine 32 /lpf (0-2); Ketones,Urine Negative (Negative); Leukocyte Esterase,Urine Negative (Negative); Mucus,Urine Rare /hpf; Nitrite,Urine Negative (Negative); Protein,Urine Trace (Negative); RBC,Urine 1 /hpf (0-5); Specific Gravity,Urine 1.012 (1.001-1.035); Squamous Epithelial Cell,Urine <1 /hpf (0-4); Urobilinogen,Urine <2.0 mg/dL (<2.0); WBC,Urine 1 /hpf (0-5)
[2019-11-16] MEDS: IN SODIUM CHLORIDE 0.9% IV SCH (17:55)
[2019-11-16] MEDS: ONDANSETRON 16 MG in SODIUM CHLORIDE 0.9% 50 ML IVPB SCH (17:56)
[2019-11-16] MEDS: ACYCLOVIR 200 MG CAP PO SCH (20:39)
--- NOTE | 2019-11-16 23:09 | P.PN ---
Progress Note - Text Progress Note Date: 11/16/19 Chief Complaint: Short of breath History of presenting complaint: This is a pleasant 74-year-old patient of Dr. Watson Fuentes. Chronic stable medical conditions include coronary artery disease with stent, atrial flutter fibrillation, GERD, hypertension, osteoarthritis, myelodysplastic syndrome with chronically low platelets. Patient has been short of breath for a while. Does have a cough with clear sputum. Has been having edema. Decreased appetite. Having bowel movements. Tired rundown. Also having fevers. Patient has followed up with Dr. Hawk from hematology. Has had previous bone marrow biopsies. 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 Empirically on ceftriaxone. Admitted with AML transformation. Started on hydroxyurea for tumor lysis syndrome and IV ceftriaxone. Patient received a unit of packed red blood cell. lower extremity swelling. Onley to be third spacing. IV fluids cutback. Given IV Lasix. As patient was not responding, hydroxyurea discontinued by oncology and patient put on Dacogen. Today-saw the patient this morning.patient feeling more worse today. More short of breath. More tired. Rundown. White count is going up. Short of breath at rest.. Review of systems: Was done for constitutional, cardiovascular, GI, pulmonary. relevant finding as above Active Medications Acetaminophen (Tylenol Tab) 650 mg PO Q4HR PRN PRN Reason: Fever and/ or Pain Last Admin: 11/15/19 02:52 Dose: 650 mg Documented by: Acyclovir (Zovirax) 400 mg PO Q12HR [facility] Last Admin: 11/16/19 20:39 Dose: 400 mg Documented by: Atorvastatin Calcium (Lipitor) 20 mg PO DAILY [facility] Last Admin: 11/16/19 09:51 Dose: 20 mg Documented by: Furosemide (Lasix) 20 mg PO BID@0900,1600 [facility] Last Admin: 11/16/19 17:58 Dose: 20 mg Documented by: Non-Formulary Medication 1 (each/ Sodium Chloride) 58 mls @ 58 mls/hr IV Q24H [facility] Stop: 11/17/19 16:59 Last Admin: 11/16/19 17:55 Dose: Not Given Documented by: Ondansetron HCl 16 mg/ Sodium (Chloride) 58 mls @ 232 mls/hr IVPB Q24H [facility] Stop: 11/17/19 16:14 Last Admin: 11/16/19 17:56 Dose: Not Given Documented by: Miscellaneous Information (Potassium Per Protocol) 1 each MISCELLANE DAILY PRN; Protocol PRN Reason: Per Protocol Ondansetron HCl (Zofran) 4 mg IVP Q6HR PRN PRN Reason: Nausea And Vomiting Pantoprazole Sodium (Protonix) 40 mg PO DAILY [facility] Last Admin: 11/16/19 09:51 Dose: 40 mg Documented by: Psyllium Hydrophilic Mucilloid (Metamucil) 6 gm PO DAILY [facility] Last Admin: 11/16/19 09:53 Dose: 6 gm Documented by: Sodium Bicarbonate () 5 ml PO 5XD [facility] Last Admin: 11/16/19 20:38 Dose: 5 ml Documented by: Sodium Chloride (Deep Sea) 2 spray NASAL QID [facility] Last Admin: 11/16/19 20:40 Dose: 2 spray Documented by: Physical examination: VITAL SIGNS: 98.7, 63, 18, 132/65, 91% on 4 L GENERAL: laying in bed, more short of breath at rest EYES: Pupils equal. Conjunctiva pale HEENT: External appearance of nose and ears normal, oral cavity grossly normal. NECK: JVD unable to assess; masses not palpable. HEART: First and second heart sounds are normal; decreased edema LUNGS: Respiratory rate increased,accessory was in the working, decreased breath sounds, ABDOMEN: Soft, nontender, liver spleen not palpable, no masses palpable. PSYCH: AO 3 INVESTIGATIONS, reviewed in the clinical context: white count 99.1, hemoglobin 7 platelets 34potassium 4.7 bun 60 creatinine 1.98 LDH 3329 Previous testing White count 79.1 hemoglobin 7.3 platelets 30 blast cells 35% increased neutrophils, lymphocytes ProTime 12.5 potassium 3.2 Bun 22 creatinine 1.6 to ferritin 2958 bilirubin 2 alkaline phosphatase 156 LDH 3736 CRP 59.8 albumin 3.1 pro calcitonin 0.55 uric acid 10.7 EKG tracing personally reviewed by me-ventricle paced rhythm Chest x-ray film personally reviewed by me-prominent interstitium cannot rule out pleural effusion Chest x-ray film personally reviewed by me-shows infiltrates and pulmonary edema and pleural effusion. 2-D echocardiogram-a 50-55%, moderate aortic stenosis, moderate pulmonary hypertension Bladder ultrasound-showing intra-bladder mass. 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 Initially put on hydroxyurea. Then switch to Dacogen.- Currently not responding-worsening -Persistent atrial flutter fibrillation rate controlled -Moderate aortic stenosis -Acute congestive heart failure exacerbation from combination of CHF diastolic dysfunction and aortic stenosis-worsening -Pacemaker -Coronary artery disease with stent -Worsening anemia thrombocytopenia-received a unit of blood -Hyperlipidemia -Essential hypertension -Primary osteoarthritis -Thrombocytopenia from MDS -Possible tumor lysis syndrome, with hemolysis -Permanent pacemaker -Urinary bladder intraluminal mass urology consulted. -Hyperphosphatemia -Chronic kidney disease stage III Plan: continue current medication treatment plan. Lasix was increased. Discussed with the patient. Follow with nephrology. Advanced care planning: Discussed at length the patient is overall poor prognosis. At the new medication of helping him his white count is getting worse. Also clinically is getting much worse. Patient does understand the same. He is agreed to proceed to become DO NOT RESUSCITATE. Several question also. About 20 minutes was spent for this. Addendum: Later in the day to the lab called me that he spoke to the patient the . They have decided to proceed with hospice. Planning to go to hospice house. VNA's been consulted.
--- NOTE | 2019-11-16 23:55 | P.PN ---
Subjective Progress Note Date: 11/16/19 Principal diagnosis: AML Patient and family anxious as they feel chemo is not working (this is only day 3) and that he is progressing. He is afebrile for 48 hours, although increased SOB and increased peripheral blasts. Renal function continues to increase. Reviewed Chest xray, cannot rule out infiltrates. Evidence of fluid overload Objective - Vital Signs Vital signs: Vital Signs Temp 98.2 F 11/16/19 13:54 Pulse 61 11/16/19 13:54 Resp 30 H 11/16/19 13:54 BP 104/67 11/16/19 13:54 Pulse Ox 93 L 11/16/19 13:54 Intake & Output 11/15/19 11/16/19 11/16/19 18:59 06:59 18:59 Intake Total 600 450 Output Total 500 Balance 600 -50 Weight 81.647 kg Intake: Intake, IV Titration 50 Amount cefTRIAXone 1 gm In 50 Sodium Chloride 0.9% 50 ml @ 100 mls/hr IVPB Q24H ELISA Rx#:[id number] Oral 600 400 Output: Urine 500 Other: Voiding Method Urinal Bedside Commode Bedside Commode Urinal Urinal # Voids 2 - Exam - Constitutional General appearance: Present: average body habitus, cooperative, no acute distress - EENT Eyes: Present: anicteric sclerae, EOMI ENT: Present: hearing grossly normal, normal oropharynx - Respiratory Respiratory: bilateral: CTA - Cardiovascular Heart sounds: normal: S1, S2 Abnormal Heart Sounds: Present: systolic murmur - Peripheral edema leg Peripheral Edema: bilateral: Trace (compression stockings on) - Gastrointestinal General gastrointestinal: Present: normal bowel sounds, soft - Neurologic Neurologic: Present: CNII-XII intact - Musculoskeletal Musculoskeletal: Present: generalized weakness - Psychiatric Psychiatric: Present: A&O x's 3, appropriate affect, intact judgment & insight - Labs CBC & Chem 7: 11/16/19 06:46 11/16/19 06:46 Labs: Abnormal Lab Results - Last 24 Hours (Table) 11/16/19 11/16/19 Range/Units 06:46 06:46 WBC 99.1 H* (3.8-10.6) k/uL RBC 2.27 L (4.30-5.90) m/uL Hgb 7.0 L (13.0-17.5) gm/dL Hct 21.6 L (39.0-53.0) % RDW 18.6 H (11.5-15.5) % Plt Count 34 L (150-450) k/uL Blast Cells % 82 H* % Neutrophils # (Manual) 9.91 H (1.3-7.7) k/uL Lymphocytes # (Manual) 4.96 H (1.0-4.8) k/uL Eosinophils # (Manual) 0.99 H (0-0.7) k/uL Myelocytes # (Manual) 0.99 H (0) k/uL Promyelocytes # (Man) 1.98 H (0) k/uL Blast Cells # (Man) 81.26 H (0) k/uL Nucleated RBCs 4 H (0-0) /100 WBC Sodium 136 L (137-145) mmol/L BUN 60 H (9-20) mg/dL Creatinine 1.98 H (0.66-1.25) mg/dL Glucose 101 H (74-99) mg/dL Calcium 7.7 L (8.4-10.2) mg/dL Phosphorus 4.9 H (2.5-4.5) mg/dL AST 62 H (17-59) U/L Albumin 2.5 L (3.5-5.0) g/dL Assessment and Plan Plan: Assessment and Plan Acute myeloid leukemia (AML) with prior myelodysplasia - Patient has a long-term history of MDS, untreated. - Bone marrow biopsy and aspirate 10/29, pathology revealing transformation to AML. - Patient treated for spontaneous tumor lysis prior to initiation of any therapy. - He started dacogen 11/14/19. - Status Post Elitek 11/15/19 Hydrea D/C'd as dacogen initiated. - Daily monitoring of CBC, CMP, Phos, Uric acid, Acute Myopathy with Diagnosis AML: - Pt will need rehab on DC if not strong enough to manage at home. - He will not be able to continue any treatment for AML while in rehab. - He does understand this. Discussed case with PT. Need pt to get moving! Anemia - Continue to transfuse with supportive transfusions irradiated blood products - Transfuse for hemoglobin less than 7 unless symptomatic, hemoglobin 7 today Thrombocytopenia - Transfuse for platelet count less than 10,000 unless symptomatic. - No aspirin, NSAIDs or anticoagulation for platelet count less than 50,000 Fever - Improved - Repeat moulton cultures - Chest Xray - WIll ask Dr. Arce from [facility] to further evaluate for prophylaxis with multiple allergies and DELMI Acute Renal Insufficiency: - Nephrology is following Tumor lysis syndrome following antineoplastic drug therapy - Pt had spontaneous TLS on admit. - He received 1st dacogen Tuesday update: 11/16/19 Treatment plan update: Long discussion with primary oncologist and patient. It is felt that hospice care is appropriate for the patient as his disease is rapidly progressing. Family agrees to withdrawal treatment. Plan for transfer to hospice house if available Physician Attest: I have completed the full history and physical and developed the complete assessment and plan. Agree with dictation by CHICKEN VACCINATOR, Dictated as a scribe
[2019-11-17] MEDS: ACETAMINOPHEN TAB 325 MG TAB PO PRN ×2 (00:17→20:29)
[2019-11-17 00:53] LABS: Glucose,Whole Blood 119 mg/dL (75-99)
[2019-11-17] MEDS: SALT AND SODA MOUTHWASH 1,000 ML PO SCH ×4 (05:22→20:05)
[2019-11-17 06:49] LABS: Anisocytosis Slight; HCT 21.3 % (39.0-53.0); Hypochromasia Moderate; MCH 30.4 pg (25.0-35.0); MCHC 31.4 g/dL (31.0-37.0); MCV 96.9 fL (80.0-100.0); Macrocytosis Slight; Mean Platelet Volume 15.1; RDW 19.1 % (11.5-15.5)
[2019-11-17 06:52] LABS: HGB 6.7 gm/dL (13.0-17.5); Platelet Count 38 k/uL (150-450)
[2019-11-17 07:11] LABS: Albumin 2.7 g/dL (3.5-5.0); Magnesium 2.2 mg/dL (1.6-2.3); Phosphorus 6.9 mg/dL (2.5-4.5); Total Protein 6.6 g/dL (6.3-8.2)
[2019-11-17] MEDS: FUROSEMIDE 20 MG TAB PO SCH ×2 (08:14→17:54)
[2019-11-17] MEDS: ACYCLOVIR 200 MG CAP PO SCH ×2 (08:14→20:29)
[2019-11-17] MEDS: ATORVASTATIN 20 MG TAB PO SCH (08:14)
[2019-11-17] MEDS: PANTOPRAZOLE 40 MG TABLET PO SCH (08:14)
[2019-11-17] MEDS: PSYLLIUM HUSK 100% 6 GM PACKET PO SCH (08:15)
[2019-11-17] MEDS: SODIUM CHLORIDE 0.65% NASAL SPRAY 44 ML BTL NASAL SCH ×4 (08:18→21:06)
--- NOTE | 2019-11-17 09:07 | P.PN ---
Subjective Patient is seen in follow-up for acute kidney injury. Renal function continues to worsen. Creatinine 2.32 today. Denies chest pain. Denies shortness of breath but is currently on 4 L nasal cannula. Remains edematous. Has been voiding. Oral intake fair. Vital signs are stable. General: The patient appeared well nourished and normally developed. HEENT: Head exam is unremarkable. Neck is without jugular venous distension. LUNGS: Breath sounds decreased. HEART: Rate and Rhythm are regular. ABDOMEN: Soft, nontender. EXTREMITITES: 2+ edema. Objective - Vital Signs Vital signs: Vital Signs Temp 97.5 F L 11/17/19 05:50 Pulse 61 11/17/19 05:50 Resp 20 11/17/19 05:50 BP 118/56 11/17/19 05:50 Pulse Ox 92 L 11/17/19 05:50 Intake & Output 11/16/19 11/17/19 11/17/19 18:59 06:59 18:59 Output Total 1200 1 Balance -1200 -1 Weight 81.647 kg Output: Urine 1200 Stool 1 Other: Voiding Method Bedside Commode Bedside Commode Urinal Urinal # Voids 2 - Labs CBC & Chem 7: 11/17/19 06:30 11/17/19 06:30 Labs: Abnormal Lab Results - Last 24 Hours (Table) 11/16/19 11/16/19 11/16/19 Range/Units 15:14 15:16 17:13 WBC (3.8-10.6) k/uL RBC (4.30-5.90) m/uL Hgb (13.0-17.5) gm/dL Hct (39.0-53.0) % RDW (11.5-15.5) % Plt Count (150-450) k/uL PT 13.0 H (9.0-12.0) sec INR 1.3 H (<1.2) BUN (9-20) mg/dL Creatinine (0.66-1.25) mg/dL Glucose (74-99) mg/dL POC Glucose (mg/dL) (75-99) mg/dL Calcium (8.4-10.2) mg/dL Phosphorus 5.1 H (2.5-4.5) mg/dL AST (17-59) U/L Lactate Dehydrogenase 3329 H (313-618) U/L Albumin (3.5-5.0) g/dL Urine Protein Trace H (Negative) Urine Bacteria Rare H (None) /hpf Hyaline Casts 32 H (0-2) /lpf Urine Mucus Rare H (None) /hpf 11/17/19 11/17/19 11/17/19 Range/Units 00:48 06:30 06:30 WBC 105.6 H* (3.8-10.6) k/uL RBC 2.20 L (4.30-5.90) m/uL Hgb 6.7 L* (13.0-17.5) gm/dL Hct 21.3 L (39.0-53.0) % RDW 19.1 H (11.5-15.5) % Plt Count 38 L (150-450) k/uL PT (9.0-12.0) sec INR (<1.2) BUN 73 H (9-20) mg/dL Creatinine 2.32 H (0.66-1.25) mg/dL Glucose 115 H (74-99) mg/dL POC Glucose (mg/dL) 119 H (75-99) mg/dL Calcium 8.0 L (8.4-10.2) mg/dL Phosphorus 6.9 H (2.5-4.5) mg/dL AST 81 H (17-59) U/L Lactate Dehydrogenase 3883 H (313-618) U/L Albumin 2.7 L (3.5-5.0) g/dL Urine Protein (Negative) Urine Bacteria (None) /hpf Hyaline Casts (0-2) /lpf Urine Mucus (None) /hpf Assessment and Plan Plan: Assessment: 1. Acute kidney injury secondary to ATN secondary to hypotension and cardiorenal syndrome. Creatinine 2.32 today. UA fairly benign. 2. Chronic kidney disease stage III with baseline creatinine in the range of 1- 1.4 secondary to nephrosclerosis. 3. Volume overload. 4. Acute on chronic diastolic CHF. 5. Hyperphosphatemia secondary to acute kidney injury. 6. AML. Oncology following. 7. Spontaneous tumor lysis syndrome upon admission. Plan: Lasix 40 mg IV once today. Plan for hospice.
[2019-11-17 10:51] LABS: Band Neutrophils % 1 %; Metamyelocytes % 1 %; Myelocytes % 5 %; Neutrophils % (M) 8 %
[2019-11-17 10:52] LABS: Blast Cells # (M) 72.07 k/uL (0); Eosinophils # (M) 1.02 k/uL (0-0.7); Lymphocytes # (M) 7.11 k/uL (1.0-4.8); Metamyelocytes # (M) 1.02 k/uL (0); Monocytes # (M) 8.12 k/uL (0-1.0); Myelocytes # (M) 5.08 k/uL (0); Nucleated Red Blood Cells 4 /100 WBC (0-0); Total Cells Counted 200; WBC 101.5 k/uL (3.8-10.6)
--- NOTE | 2019-11-17 10:57 | P.PN ---
Progress Note - Text Progress Note Date: 11/17/19 the patient appears very fatigued today. It is my belief that the "tumor" seen within the bladder on ultrasound and CT scan represents the patient's known intravesical prostatic median lobe. Given his overall condition, I do not feel that further evaluation is warranted, though I did offer to perform cystoscopy in the future if he desires. The CT scan also showed small bladder calculi, but these do not warrant any treatment and was he becomes symptomatic. Please notify me if I can be of any further assistance.
[2019-11-17] MEDS ORDERED: FUROSEMIDE 10 MG/ML 4 ML VIAL IV ONE (11:00)
[2019-11-17] MEDS: ONDANSETRON 16 MG in SODIUM CHLORIDE 0.9% 50 ML IVPB SCH (17:20)
[2019-11-17] MEDS: IN SODIUM CHLORIDE 0.9% IV SCH (17:20)
--- NOTE | 2019-11-17 19:34 | P.PN ---
Progress Note - Text Progress Note Date: 11/17/19 Chief Complaint: Short of breath History of presenting complaint: This is a pleasant 74-year-old patient of Dr. Watson Fuentes. Chronic stable medical conditions include coronary artery disease with stent, atrial flutter fibrillation, GERD, hypertension, osteoarthritis, myelodysplastic syndrome with chronically low platelets. Patient has been short of breath for a while. Does have a cough with clear sputum. Has been having edema. Decreased appetite. Having bowel movements. Tired rundown. Also having fevers. Patient has followed up with Dr. Hawk from hematology. Has had previous bone marrow biopsies. 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 Empirically on ceftriaxone. Admitted with AML transformation. Started on hydroxyurea for tumor lysis syndrome and IV ceftriaxone. Patient received a unit of packed red blood cell. lower extremity swelling. Stacy to be third spacing. IV fluids cutback. Given IV Lasix. As patient was not responding, hydroxyurea discontinued by oncology and patient put on Dacogen. Patient did not respond to Dacogen. Patient and have decided to proceed with hospice. Today-tired Eating sitting up in a chair. Some shortness of breath. Decreased appetite.. Review of systems: Was done for constitutional, cardiovascular, GI, pulmonary. relevant finding as above Active Medications Acetaminophen (Tylenol Tab) 650 mg PO Q4HR PRN PRN Reason: Fever and/ or Pain Last Admin: 11/17/19 00:17 Dose: 650 mg Documented by: Acyclovir (Zovirax) 400 mg PO Q12HR [facility] Last Admin: 11/17/19 08:14 Dose: 400 mg Documented by: Atorvastatin Calcium (Lipitor) 20 mg PO DAILY [facility] Last Admin: 11/17/19 08:14 Dose: 20 mg Documented by: Furosemide (Lasix) 20 mg PO BID@0900,1600 [facility] Last Admin: 11/17/19 17:54 Dose: 20 mg Documented by: Miscellaneous Information (Potassium Per Protocol) 1 each MISCELLANE DAILY PRN; Protocol PRN Reason: Per Protocol Ondansetron HCl (Zofran) 4 mg IVP Q6HR PRN PRN Reason: Nausea And Vomiting Pantoprazole Sodium (Protonix) 40 mg PO DAILY [facility] Last Admin: 11/17/19 08:14 Dose: 40 mg Documented by: Psyllium Hydrophilic Mucilloid (Metamucil) 6 gm PO DAILY [facility] Last Admin: 11/17/19 08:15 Dose: 6 gm Documented by: Sodium Bicarbonate () 5 ml PO 5XD [facility] Last Admin: 11/17/19 17:34 Dose: 5 ml Documented by: Sodium Chloride (Deep Sea) 2 spray NASAL QID [facility] Last Admin: 11/17/19 17:34 Dose: 2 spray Documented by: Physical examination: VITAL SIGNS: 97.6, 61, 20, 116/62, 93% on 5 L GENERAL: Sitting up in a chair, short of breath tired EYES: Pupils equal. Conjunctiva pale HEENT: External appearance of nose and ears normal, oral cavity grossly normal. NECK: JVD unable to assess; masses not palpable. HEART: First and second heart sounds are normal; decreased edema LUNGS: Respiratory rate increased,accessory was in the working, decreased breath sounds, ABDOMEN: Soft, nontender, liver spleen not palpable, no masses palpable. PSYCH: AO 3 INVESTIGATIONS, reviewed in the clinical context: White count 101 hemoglobin 6.7 platelets 38 potassium 5 bun 73 creatinine 2.3 to Previous testing White count 79.1 hemoglobin 7.3 platelets 30 blast cells 35% increased neutrophils, lymphocytes ProTime 12.5 potassium 3.2 Bun 22 creatinine 1.6 to ferritin 2958 bilirubin 2 alkaline phosphatase 156 LDH 3736 CRP 59.8 albumin 3.1 pro calcitonin 0.55 uric acid 10.7 EKG tracing personally reviewed by me-ventricle paced rhythm Chest x-ray film personally reviewed by me-prominent interstitium cannot rule out pleural effusion Chest x-ray film personally reviewed by me-shows infiltrates and pulmonary edema and pleural effusion. 2-D echocardiogram-a 50-55%, moderate aortic stenosis, moderate pulmonary hypertension Bladder ultrasound-showing intra-bladder mass. 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 Initially put on hydroxyurea. Then switch to Dacogen.-- not responding-worsening -Persistent atrial flutter fibrillation rate controlled -Moderate aortic stenosis -Acute congestive heart failure exacerbation from combination of CHF diastolic dysfunction and aortic not improving -Pacemaker -Coronary artery disease with stent -Worsening anemia thrombocytopenia-received a unit of blood -Hyperlipidemia -Essential hypertension -Primary osteoarthritis -Thrombocytopenia from MDS -Possible tumor lysis syndrome, with hemolysis -Permanent pacemaker -Urinary bladder intraluminal mass urology consulted. -Hyperphosphatemia -Chronic kidney disease stage III -Doubtful intraluminal bladder mass likely median lobe of prostate-as per urology Plan: Patient discharged to hospice house was informed by the nurse postponed until tomorrow. Weight interval for details. Continue supportive care. Discussed with the patient. Patient continues to do poorly.
[2019-11-17 20:06] VITALS: RESP 22
[2019-11-17] MEDS ORDERED: LIDOCAINE URO-JET JELLY 2% 5 ML KIT URETHRAL ONE (22:41)
[2019-11-18] MEDS: SALT AND SODA MOUTHWASH 1,000 ML PO SCH ×2 (01:13→06:02)
[2019-11-18 05:45] VITALS: BP 129/67; PULSE 61; TEMP 97.8
[2019-11-18] MEDS ORDERED: FUROSEMIDE 10 MG/ML 4 ML VIAL IV STA (08:20)
--- NOTE | 2019-11-18 08:21 | P.PN ---
Subjective Patient is seen in follow-up for acute kidney injury. Renal function continues to worsen. Creatinine 2.32 as of yesterday. Denies chest pain. Denies shortness of breath but is currently on 5 L nasal cannula. Remains edematous but better compared to yesterday. Has a Linn catheter for urinary retention. Oral intake fair. Vital signs are stable. General: The patient appeared well nourished and normally developed. HEENT: Head exam is unremarkable. Neck is without jugular venous distension. LUNGS: Breath sounds decreased. HEART: Rate and Rhythm are regular. ABDOMEN: Soft, nontender. EXTREMITITES: 2+ edema. Objective - Vital Signs Vital signs: Vital Signs Temp 97.8 F 11/18/19 05:00 Pulse 61 11/18/19 05:00 Resp 22 11/18/19 05:00 BP 129/67 11/18/19 05:00 Pulse Ox 91 L 11/18/19 05:00 Intake & Output 11/17/19 11/18/19 11/18/19 18:59 06:59 18:59 Intake Total 600 Output Total 503 Balance 600 -503 Intake: Oral 600 Output: Urine 500 Coude 250 Stool 3 Other: Voiding Method Bedside Commode Urinal Urinal # Voids 3 3 1 # Bowel Movements 1 1 - Labs CBC & Chem 7: 11/17/19 06:30 11/17/19 06:30 Labs: Abnormal Lab Results - Last 24 Hours (Table) 11/17/19 Range/Units 06:30 WBC 101.5 H* (3.8-10.6) k/uL Blast Cells % 71 H* % Neutrophils # (Manual) 9.10 H (1.3-7.7) k/uL Lymphocytes # (Manual) 7.11 H (1.0-4.8) k/uL Monocytes # (Manual) 8.12 H (0-1.0) k/uL Eosinophils # (Manual) 1.02 H (0-0.7) k/uL Metamyelocytes # (Man) 1.02 H (0) k/uL Myelocytes # (Manual) 5.08 H (0) k/uL Blast Cells # (Man) 72.07 H (0) k/uL Nucleated RBCs 4 H (0-0) /100 WBC Microbiology - Last 24 Hours (Table) 08/07/20 15:14 Blood Culture - Preliminary Blood No Growth after 24 hours 11/16/19 15:19 Blood Culture - Preliminary Blood No Growth after 24 hours Assessment and Plan Plan: Assessment: 1. Acute kidney injury secondary to ATN secondary to hypotension and cardiorena l syndrome. Creatinine 2.32 as of yesterday. UA fairly benign. 2. Chronic kidney disease stage III with baseline creatinine in the range of 1- 1.4 secondary to nephrosclerosis. 3. Volume overload. 4. Acute on chronic diastolic CHF. 5. Hyperphosphatemia secondary to acute kidney injury. 6. AML. Oncology following. 7. Spontaneous tumor lysis syndrome upon admission. Plan: Repeat Lasix 40 mg IV today. Lasix 40 mg orally twice daily upon discharge. Plan for hospice.
[2019-11-18] MEDS: ACYCLOVIR 200 MG CAP PO SCH (09:10)
[2019-11-18] MEDS: ATORVASTATIN 20 MG TAB PO SCH (09:10)
[2019-11-18] MEDS: PSYLLIUM HUSK 100% 6 GM PACKET PO SCH (09:11)
[2019-11-18] MEDS: PANTOPRAZOLE 40 MG TABLET PO SCH (09:11)
[2019-11-18] MEDS: SODIUM CHLORIDE 0.65% NASAL SPRAY 44 ML BTL NASAL SCH (09:11)
--- NOTE | 2019-11-18 10:34 | P.PN ---
Progress Note - Text Progress Note Date: 11/18/19 The patient is to receive Hospice care. A Linn catheter was inserted yesterday for voiding difficulty. However, the nurse indicated that the patient experienced discomfort from the catheter, and that she was unable to inflate the Linn catheter balloon without the patient experiencing discomfort. Suspecting that the catheter was malpositioned, I asked that she remove the catheter. This morning, under sterile conditions, with 2% lidocaine gel used for anesthesia, I was able to place a 16-E[place]ian coud-tip Linn catheter. The patient did not experience any discomfort after the catheter was placed, and it drained clear yellow urine.
[2019-11-18] MEDS ORDERED: FUROSEMIDE 40 MG TAB PO SCH (16:00)
--- NOTE | 2019-11-18 17:57 | P.DS ---
Providers Date of admission: 11/08/19 02:54 Expected date of discharge: 11/18/19 Attending physician: Jered Stack Consults: 11/08/19 11:09 Consult Physician Routine Consulting Provider: Myrna Hawk Consult Reason/Comments: AML Do you want consulting provider notified?: Already Contacted 11/12/19 12:25 Consult Physician Routine Consulting Provider: Stacie Womack Consult Reason/Comments: renal failure Do you want consulting provider notified?: Yes 11/12/19 20:32 Consult Physician Routine Consulting Provider: Brennon Rivera Consult Reason/Comments: CHF Do you want consulting provider notified?: Yes 11/14/19 13:23 Consult Physician Routine Consulting Provider: Ajay Benson Consult Reason/Comments: bladder mass Do you want consulting provider notified?: Yes 11/16/19 14:45 Consult Physician Routine Consulting Provider: Lacey Arce Consult Reason/Comments: blast crisis, ?pna, neutropenic, SIRS, choice ABX Do you want consulting provider notified?: Yes Primary care physician: [facility] Course: Chief Complaint: Short of breath History of presenting complaint: This is a pleasant 74-year-old patient of Dr. Watson Fuentes. Chronic stable medical conditions include coronary artery disease with stent, atrial flutter fibrillation, GERD, hypertension, osteoarthritis, myelodysplastic syndrome with chronically low platelets. Patient has been short of breath for a while. Does have a cough with clear sputum. Has been having edema. Decreased appetite. Having bowel movements. Tired rundown. Also having fevers. Patient has followed up with Dr. Hawk from hematology. Has had previous bone marrow biopsies. 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 Empirically on ceftriaxone. Admitted with AML transformation. Started on hydroxyurea for tumor lysis syndrome and IV ceftriaxone. Patient received a unit of packed red blood cell. lower extremity swelling. [place] to be third spacing. IV fluids cutback. Given IV Lasix. As patient was not responding, hydroxyurea discontinued by oncology and patient put on Dacogen. Patient did not respond to Dacogen. Patient and have decided to proceed with hospice. Today-Patient being transferred to hospice house. Weak and tired Consultants: Dr. Wilson of urology Dr. Griffin from nephrology Dr. Patel from oncology Physical examination: VITAL SIGNS: 97.8, 61, 22, 129/67, 91% on 5 L GENERAL: Tired, short of breath EYES: Pupils equal. Conjunctiva pale HEENT: External appearance of nose and ears normal, oral cavity grossly normal. NECK: JVD unable to assess; masses not palpable. HEART: First and second heart sounds are normal; decreased edema LUNGS: Respiratory rate increased,accessory was in the working, decreased breath sounds, ABDOMEN: Soft, nontender, liver spleen not palpable, no masses palpable. PSYCH: AO 3 INVESTIGATIONS, reviewed in the clinical context: White count 101 hemoglobin 6.7 platelets 38 potassium 5 bun 73 creatinine 2.3 to Previous testing White count 79.1 hemoglobin 7.3 platelets 30 blast cells 35% increased neutrophils, lymphocytes ProTime 12.5 potassium 3.2 Bun 22 creatinine 1.6 to ferritin 2958 bilirubin 2 alkaline phosphatase 156 LDH 3736 CRP 59.8 albumin 3.1 pro calcitonin 0.55 uric acid 10.7 EKG tracing personally reviewed by me-ventricle paced rhythm Chest x-ray film personally reviewed by me-prominent interstitium cannot rule out pleural effusion Chest x-ray film personally reviewed by me-shows infiltrates and pulmonary edema and pleural effusion. 2-D echocardiogram-a 50-55%, moderate aortic stenosis, moderate pulmonary hypertension Bladder ultrasound-showing intra-bladder mass. 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 Initially put on hydroxyurea. Then switch to Dacogen.-- not responding-worsening -Persistent atrial flutter fibrillation rate controlled -Moderate aortic stenosis -Acute congestive heart failure exacerbation from combination of CHF diastolic dysfunction and aortic not improving -Pacemaker -Coronary artery disease with stent -Worsening anemia thrombocytopenia-received a unit of blood -Hyperlipidemia -Essential hypertension -Primary osteoarthritis -Thrombocytopenia from MDS -Possible tumor lysis syndrome, with hemolysis -Permanent pacemaker -Urinary bladder intraluminal mass urology consulted. -Hyperphosphatemia -Chronic kidney disease stage III -Doubtful intraluminal bladder mass likely median lobe of prostate-as per urology Disposition: [facility] Patient Condition at Discharge: Poor Plan - Discharge Summary Discharge Rx Participant: Yes New Discharge Prescriptions: New Hydroxyurea [Hydrea] 500 mg PO TID #90 capsule Sodium Chloride 0.65% Nasal [Deep Sea (Saline)] 2 spray NASAL QID spray Furosemide [Lasix] 20 mg PO BID@0900,1600 tab Ondansetron Odt [Zofran Odt] 4 mg PO Q8HR PRN #10 tab PRN Reason: Nausea Acyclovir [Zovirax] 400 mg PO Q12HR cap Continue Terazosin [Hytrin] 5 mg PO DAILY Discontinued Atorvastatin Calcium [Lipitor] 20 mg PO DAILY Discharge Medication List Terazosin [Hytrin] 5 mg PO DAILY 03/28/14 [History] Hydroxyurea [Hydrea] 500 mg PO TID #90 capsule 11/11/19 [Rx] Acyclovir [Zovirax] 400 mg PO Q12HR cap 11/17/19 [Rx] Furosemide [Lasix] 20 mg PO BID@0900,1600 tab 11/17/19 [Rx] Ondansetron Odt [Zofran Odt] 4 mg PO Q8HR PRN #10 tab 11/17/19 [Rx] Sodium Chloride 0.65% Nasal [Deep Sea (Saline)] 2 spray NASAL QID spray 11/17/19 [Rx] Follow up Appointment(s)/Referral(s): Myrna Hawk MD [STAFF PHYSICIAN] - (Patient being discharged to Hospice. Please cancel appt. ) Patient Instructions/Handouts: Ondansetron (By mouth), Hospice (DC), Acute Myeloid Leukemia (DC) Discharge Disposition: DISCH TO HOSPICE MED FACILTY
== END 2019-11-18 10:55 | disposition hospice, home (50) | DRG 834 ==
LOC: EC 01:08 → 4SSUR 02:54 → 5NMEDONC 11-13 13:46
PROVIDERS: ADMIT Hospitalist; ATTEND Hospitalist
PROC: 30233N1 Transfusion of Nonautologous Red Blood Cells into Peripheral Vein, Percutaneous Approach (ICD-10-PCS; principal; 2019-11-10)
DX: C92.00 Acute myeloblastic leukemia, not having achieved remission (principal); E88.3 Tumor lysis syndrome; I50.33 Acute on chronic diastolic (congestive) heart failure; N17.0 Acute kidney failure with tubular necrosis; I13.0 Hypertensive heart and chronic kidney disease with heart failure and stage 1 through stage 4 chronic kidney disease, or unspecified chronic kidney disease; I42.9 Cardiomyopathy, unspecified; I48.19 Other persistent atrial fibrillation; I48.92 Unspecified atrial flutter; I25.10 Atherosclerotic heart disease of native coronary artery without angina pectoris; I27.20 Pulmonary hypertension, unspecified; Z51.5 Encounter for palliative care; Z66 Do not resuscitate; K21.9 Gastro-esophageal reflux disease without esophagitis; E78.5 Hyperlipidemia, unspecified; Z20.828 Contact with and (suspected) exposure to other viral communicable diseases; D69.59 Other secondary thrombocytopenia; I35.0 Nonrheumatic aortic (valve) stenosis; M19.91 Primary osteoarthritis, unspecified site; I49.5 Sick sinus syndrome; N18.3 Chronic kidney disease, stage 3 (moderate); N21.0 Calculus in bladder; E83.39 Other disorders of phosphorus metabolism; N40.1 Benign prostatic hyperplasia with lower urinary tract symptoms; R33.8 Other retention of urine; D70.9 Neutropenia, unspecified; Z79.01 Long term (current) use of anticoagulants; Z80.51 Family history of malignant neoplasm of kidney; Z79.899 Other long term (current) drug therapy; Z88.0 Allergy status to penicillin; Z88.2 Allergy status to sulfonamides; Z90.49 Acquired absence of other specified parts of digestive tract; Z95.5 Presence of coronary angioplasty implant and graft; Z98.890 Other specified postprocedural states; Z87.891 Personal history of nicotine dependence; Z95.0 Presence of cardiac pacemaker
CPT/HCPCS: 36415; 70450; 71045; 71046; 76770; 80048; 80053; 81001; 82728; 83010; 83605; 83615; 83735; 84100; 84145; 84484; 84550; 85025; 85610; 85730; 86140; 86850; 86900; 86901; 86920; 87040; 93005; 93306; 94760; 96365; 99285